=== PATIENT | female | born 1945 | race Caucasian/White ===

== ENCOUNTER 2016-11-04 09:01 | Day surgery (SDC) | payer OTHER ==
[2016-11-04] MEDS ORDERED: PROPOFOL 20 ML ONE ×2 (10:23)
[2016-11-04 10:32] VITALS: BMI 23.6
[2016-11-04 11:56] VITALS: TEMP 98
[2016-11-04 14:24] VITALS: BP 129/49; PULSE 51
--- NOTE | 2016-11-05 12:37 | PATH ---
Surgical Pathology Report Patient Name: VALERIO LICONA [facility]. Rec. #: [id number] /Age/Gender: 1945 (Age: 70) / F Account: [id number] Location: ASU-ENDOSCOPY Taken: 11/04/2016 Received: 11/04/2016 Reported: 11/05/2016 Physicians: Ciaran Mercado M.D. Specimen(s) Received BX SIGMOID POLYPS Clinical History Screening, constipation Moderate diverticulosis, redundant colon, grade 3 hemorrhoids with anal papilla Final Diagnosis SIGMOID, POLYPS BIOPSY: FRAGMENTS OF HYPERPLASTIC POLYPS. Electronically Signed Papo Benites M.D. Gross Description Received in formalin, labeled "biopsy sigmoid polyps" are 5 lopez, irregular portions of soft tissue ranging from 0.1-0.4 cm in greatest dimension. The specimens are submitted in toto in one cassette. /11/04/201611/04/2016
== END 2016-11-04 13:50 | disposition home or self-care (01) ==
LOC: JASU-ENDO 09:01
PROVIDERS: ATTEND Internal Medicine Gastroenterology
PROC: 0DBN8ZX Excision of Sigmoid Colon, Via Natural or Artificial Opening Endoscopic, Diagnostic (ICD-10-PCS; principal; 2016-11-04 10:00)
DX: Z12.11 Encounter for screening for malignant neoplasm of colon (principal); K57.30 Diverticulosis of large intestine without perforation or abscess without bleeding; K64.8 Other hemorrhoids; K63.89 Other specified diseases of intestine; K59.01 Slow transit constipation
CPT/HCPCS: 88305-TC

== ENCOUNTER 2017-07-20 13:53 | Inpatient (IN) | payer OTHER ==
--- NOTE | 2017-07-20 14:18 | PDOC ---
History of Present Illness - General Chief Complaint: Chest Pain Stated Complaint: CHEST PAIN, BLOOD PRESSURE PROBLEM, PCP SENT Time Seen by Provider: 07/20/17 14:12 - History of Present Illness Initial Comments: 07/20/17 14:15 71 yo M with h/o HLD, NIDDM, HTN who presents from outside PCP ( Dr. Petit ) with BP of 230/130, and CP. Patient reports one month of stable right sided chest pain/dull pressure at rest, alleviated with belching. No identifiable precipitators of chest pain. Pt. attributes chest pain to Metoprolol use beginning one month ago. Compliant with anitHTN medications/Metoprolol. Patient reports chronic HTN, Denies N/V, F/C, cough, SOB, wheezing, hemoptysis, lightheadedeness, ext swelling, urinary changes, hematuria, vision changes, weakness, slurred speech, confusion, numbness/tingling in ext. Denies h/o CAD/UT , TIA/CVA, stent placement, CABG. Last stress test 2 years ago with rn vascular Dr. malcolm. Past History - Past Medical History Allergies/Adverse Reactions: Allergies Allergy/AdvReac Type Severity Reaction Status Date / Time carvedilol [From Coreg] Allergy Verified 07/20/17 14:03 hydralazine Allergy Verified 07/20/17 14:03 nebivolol [From Bystolic] Allergy Verified 07/20/17 14:03 alprazolam [From Xanax] AdvReac Itching Verified 07/20/17 13:56 amlodipine besylate AdvReac Rash Verified 07/20/17 13:56 [From Norvasc] captopril AdvReac Itching Verified 07/20/17 13:56 gabapentin [From Neurontin] AdvReac Swelling Verified 07/20/17 13:56 hydrochlorothiazide AdvReac Swelling Verified 07/20/17 13:56 [From Aldactazide] hydrocortisone AdvReac Elevated Verified 07/20/17 13:56 [From Cortizone-10] Blood Pressure metoprolol succinate AdvReac Verified 07/20/17 13:56 [From Toprol XL] mupirocin AdvReac Rash Verified 07/20/17 13:56 nifedipine [From Procardia] AdvReac Rash Verified 07/20/17 13:56 nitroglycerin AdvReac Verified 07/20/17 13:56 olmesartan medoxomil AdvReac Low Blood Verified 07/20/17 13:56 [From Benicar] Pressure paroxetine HCl [From Paxil] AdvReac Elevated Verified 07/20/17 13:56 Blood Pressure pregabalin [From Lyrica] AdvReac Swelling Verified 07/20/17 13:56 spironolactone AdvReac Swelling Verified 07/20/17 13:56 [From Aldactazide] valsartan [From Diovan] AdvReac Swelling Verified 07/20/17 13:56 SE RA PES AdvReac Uncoded 07/20/17 13:56 Home Medications: Ambulatory Orders Captopril/Hydrochlorothiazide [Capozide 25/15 -] 50 mg PO DAILY 04/24/12 Diazepam [Valium] 5 mg PO PRN PRN 04/24/12 Potassium Chloride [K-Dur -] 20 meq PO DAILY 04/24/12 metFORMIN HCL [Glucophage -] 500 mg PO BID 04/24/12 Atenolol [Tenormin -] 100 mg PO DAILY 11/04/16 Atenolol/Chlorthalidone [Tenoretic 100 Tablet] 1 each PO 11/04/16 Glyburide 5 mg PO DAILY 11/04/16 Anemia: Yes Cardiac Disorders: Yes (LEAKY VALVES) COPD: No Diabetes: Yes GI Disorders: Yes (DIVERTICULOSIS,CONSTIPATION,IBS) HTN: Yes - Surgical History Abdominal Surgery: Yes (ovarian cyst) - Suicide/Smoking/Psychosocial Hx Smoking Status: No Smoking History: Never smoked Number of Cigarettes Smoked Daily: 0 Information on smoking cessation initiated: No Hx Alcohol Use: No Drug/Substance Use Hx: No Substance Use Type: None Review of Systems - Review of Systems Comments:: 07/20/17 14:14 GENERAL/CONSTITUTIONAL: No fever or chills. No weakness. HEAD, EYES, EARS, NOSE AND THROAT: No change in vision. No ear pain or discharge. No sore throat.- CARDIOVASCULAR:+ chest pain. No shortness of breath RESPIRATORY: No cough, wheezing, or hemoptysis. GASTROINTESTINAL: No nausea, vomiting, diarrhea or constipation. GENITOURINARY: No dysuria, frequency, or change in urination. MUSCULOSKELETAL: No joint or muscle swelling or pain. No neck or back pain. SKIN: No rash NEUROLOGIC: No headache, vertigo, loss of consciousness, or change in strength/ sensation. ENDOCRINE: No increased thirst. No abnormal weight change HEMATOLOGIC/LYMPHATIC: No anemia, easy bleeding, or history of blood clots. ALLERGIC/IMMUNOLOGIC: No hives or skin allergy. \ *Physical Exam - Vital Signs Last Vital Signs Temp Pulse Resp BP Pulse Ox 98.3 F 81 18 260/60 100 07/20/17 13:56 07/20/17 13:56 07/20/17 13:56 07/20/17 13:56 07/20/17 13:56 - Physical Exam Comments: 07/20/17 14:15 GENERAL: Awake, alert, and fully oriented, in no acute distress HEAD: No signs of trauma, normocephalic, atraumatic EYES: PERRLA, EOMI, sclera anicteric, conjunctiva clear ENT: Auricles normal inspection, hearing grossly normal, nares patent, oropharynx clear without exudates. Moist mucosa NECK: Normal ROM, supple, no lymphadenopathy, JVD, or masses LUNGS: No distress, speaks full sentences, clear to auscultation bilaterally HEART: Regular rate and rhythm, normal S1 and S2, no murmurs, rubs or gallops, peripheral pulses normal and equal bilaterally. EXTREMITIES : Normal inspection, Normal range of motion, no edema. No clubbing or cyanosis. NEUROLOGICAL: Cranial nerves II through XII grossly intact. Normal speech, normal gait, no focal sensorimotor deficits SKIN: Warm, Dry, normal turgor, no rashes or lesions noted ED Treatment Course - LABORATORY CBC & Chemistry Diagram: 07/20/17 14:16 07/20/17 14:16 Medical Decision Making - Medical Decision Making 07/20/17 15:50 71 yo M with h/o HLD, NIDDM, HTN who presents from outside PCP ( Dr. Petit ) with BP of 230/130, and one month of stable right sided chest pain/dull pressure at rest, alleviated with belching. No identifiable precipitators. BP typically high 180's-200s. Compliant with anitHTN medications/Metoprolol x 1 month. Mutliple adverse reactions to multiple antihypertensives including HCTZ, Norvasc, Captopril, Nitroglycerin, Coreg.Denies N/V, F/C, cough, SOB, wheezing, hemoptysis, lightheadedness, ext swelling, urinary changes, hematuria, vision changes, weakness, slurred speech, confusion, numbness/tingling in ext. Denies h /o CAD/UT, TIA/CVA, stent placement, CABG. Last stress test 2 years ago with rn vascular Dr. malcolm. BP 260/60. Absent findings on physical exam. Patiently currently asymptomatic with no evidence of end organ damage on physical exam. Will attempt to r/o ACS/UT and assess for laboratory abnormalities. ED Course: CBC, CMP, Cardiac Pr EKG, CXR UA Labetalol 20 mh IV ASA 325 mg 07/20/17 15:56 CBC, CMP: Unremarkable CXR: No acute pathology. Patient admitted to Dr. Petit inpatient telemetry BP 190/ 72 EKG: NSR with absent axis deviation. Normal interval duration. Absent JOSE MANUEL. STD in leads V5-V6. *DC/Admit/Observation/Transfer Diagnosis at time of Disposition: Hypertensive emergency, Chest pain - Discharge Dispostion Admit: Yes - Referrals - Patient Instructions - Post Discharge Activity
[2017-07-20 14:50] LABS: BASO % 0.6 % (0-2.0); HEMOGLOBIN 16.1 GM/dL (10.7-15.3); LYMPH % 21.6 % (8-40); MCH 33.8 pg (25.7-33.7); MCHC 34.3 g/dl (32.0-36.0); MEAN CELL VOLUME 98.7 fl (80-96); MEAN PLT VOLUME 7.5 fl (7.5-11.1); NEUT % 70.8 % (42.8-82.8); PLATELET COUNT 97 K/MM3 (134-434); RBC 4.76 M/mm3 (3.60-5.2); RDW 12.2 % (11.6-15.6); WHITE BLOOD COUNT 6.5 K/mm3 (4.0-10.0)
[2017-07-20 14:53] LABS: URINE APPEARANCE CLEAR; URINE BILIRUBIN NEGATIVE (NEGATIVE); URINE BLOOD NEGATIVE (NEGATIVE); URINE COLOR STRAW; URINE GLUCOSE (UA) 3+ (NEGATIVE); URINE KETONE TRACE (NEGATIVE); URINE LEUK ESTERASE NEGATIVE (NEGATIVE); URINE NITRITE NEGATIVE (NEGATIVE); URINE UROBILINOGEN NEGATIVE mg/dL (0.2-1.0)
[2017-07-20 14:56] LABS: URINE PROTEIN 2+ (NEGATIVE)
[2017-07-20 15:05] LABS: INR 1.02 (0.82-1.09); PROTHROMBIN TIME (PATIENT) 11.5 SEC (9.98-11.88)
[2017-07-20 15:06] LABS: EPI CELLS RARE /HPF (FEW)
--- NOTE | 2017-07-20 15:06 | EKG ---
Test Reason : Blood Pressure : / mmHG Vent. Rate : 073 BPM Atrial Rate : 073 BPM P-R Int : 142 ms QRS Dur : 092 ms QT Int : 418 ms P-R-T Axes : 071 032 078 degrees QTc Int : 460 ms SINUS RHYTHM WITH PREMATURE SUPRAVENTRICULAR COMPLEXES SEPTAL INFARCT , AGE UNDETERMINED ABNORMAL ECG WHEN COMPARED WITH ECG OF 01-JAN-2010 11:03, PREMATURE SUPRAVENTRICULAR COMPLEXES ARE NOW PRESENT SEPTAL INFARCT IS NOW PRESENT T WAVE AMPLITUDE HAS DECREASED IN LATERAL LEADS Confirmed by MD Kenji, Jay ([id number]) on 07/20/2017 3:06:30 PM Referred By: Confirmed By:Jay Phillip MD
[2017-07-20 15:19] LABS: ANION GAP 14 (8-16); BILIRUBIN,TOTAL 0.6 mg/dL (0.2-1.0); BLOOD UREA NITROGEN 16 mg/dL (7-18); CALCIUM 9.6 mg/dL (8.5-10.1); CHLORIDE 94 mmol/L (98-107); CO2 25 mmol/L (21-32); CREATININE 0.9 mg/dL (0.55-1.02); POTASSIUM 3.8 mmol/L (3.5-5.1); SGOT/AST 51 U/L (15-37); SGPT/ALT 64 U/L (12-78); SODIUM 133 mmol/L (136-145); TOT PROT 7.7 g/dl (6.4-8.2)
[2017-07-20 15:20] LABS: ALK PHOS 91 U/L (45-117)
[2017-07-20 15:27] LABS: GLUCOSE,RANDOM 342 mg/dL (74-106)
[2017-07-20] MEDS ORDERED: ASPIRIN 325 MG ENTERIC COATED TABLET (FP) PO ONE (15:45)
[2017-07-20] MEDS ORDERED: LABETALOL HCL 200 MG TABLET (FP) PO ONE ×2 (15:45→23:45)
[2017-07-20] MEDS ORDERED: LABETALOL HCL 5 MG/1 ML (100MG/20 ML VIAL) IVPUSH ONE (15:53)
[2017-07-20] MEDS ORDERED: LABETALOL HCL 5 MG/1 ML (200MG/40ML VIAL) IVPB ONE (15:56)
--- NOTE | 2017-07-20 16:02 | PDOC ---
Attending Attestation - Resident Resident Name: Jeff Arredondo - ED Attending Attestation I have performed the following: I have examined & evaluated the patient, The case was reviewed & discussed with the resident, I agree w/resident's findings & plan, Exceptions are as noted - HPI HPI: 07/20/17 15:59 71-year-old female with history of difficult to control hypertension sent from Dr. Amaro's office for admission in the setting of markedly elevated blood pressures at the office today and one month of intermittent localized left chest pain. Patient describes the pain as a side effect of her metoprolol, reporting regular left upper chest pain/cramping about 3-4 hours after taking her metoprolol, then spontaneously resolves. Denies any other symptoms of end organ injury. - Physicial Exam PE: 07/20/17 16:00 Elevated blood pressure 230/90 Well-appearing otherwise, sharp movements are intact Heart is regular, no murmurs Lungs are clear No edema - Medical Decision Making 07/20/17 16:01 Patient seen and evaluated with the resident. I agree with the overall evaluation, assessment, and management with the following summary of visit: 71-year-old female with history of hypertension sent for admission for markedly elevated blood pressures in the setting of otherwise atypical chest pain. Blood pressure control Labs, EKG Chest x-ray Admission as scheduled by Dr. Amaro Heart Score/ECG Review #1 ECG reviewed & interpreted by me at: 14:07 General ECG Interpretation: Sinus Rhythm (APC noted), Normal Rate (73), Normal Intervals (qtc 460), No acute ischemic changes
[2017-07-20 16:24] VITALS: BMI 25.0
[2017-07-20] MEDS ORDERED: SODIUM CHLORIDE 500 ML IV STA (18:25)
[2017-07-20] MEDS ORDERED: diazePAM 5 MG TABLET PO PRN (23:19)
--- NOTE | 2017-07-20 23:47 | PN ---
Teaching Attending Note Name of Resident: Kameron Salvador ATTENDING PHYSICIAN STATEMENT I saw and evaluated the patient. I reviewed the resident's note and discussed the case with the resident. I agree with the resident's findings and plan as documented. SUBJECTIVE: 71 yo F with Pmhx of HTN (non-compliant with med dose, as per pt), NIDDM, HLD, chronic thrombocytopenia, who presented to 's office for HTN urgency with BP 230/130. Also,with right sided chest pain that has improved when she belches. States she gets her chest pain when she takes her Metoprolol and lowered her dose to 50mg. States she does take her other meds. Notes no current chest pain, pressure, shortness of breath, lightheadedness, dizziness or headaches. No fevers or chills. OBJECTIVE: Physical: VS: Vital Signs Period Temp Pulse Resp BP Sys/[place] Pulse Ox Last 24 Hr 98.0 F-98.3 F 70-81 16-18 163-260/60-96 100-100 GEN: NAD, Resting in bed, AA0X3 HEENT: NCAT, PERRL, Throat without erythema or exudates CARD: RRR S1, S2 RESP: CTAB ABD: BSx4, NTD to palpation EXT: - C/C/E, petechia in bilateral LE Allergies Allergy/AdvReac Type Severity Reaction Status Date / Time carvedilol [From Coreg] Allergy Verified 07/20/17 14:03 hydralazine Allergy Verified 07/20/17 14:03 nebivolol [From Bystolic] Allergy Verified 07/20/17 14:03 alprazolam [From Xanax] AdvReac Itching Verified 07/20/17 13:56 amlodipine besylate AdvReac Rash Verified 07/20/17 13:56 [From Norvasc] captopril AdvReac Itching Verified 07/20/17 13:56 gabapentin [From Neurontin] AdvReac Swelling Verified 07/20/17 13:56 hydrochlorothiazide AdvReac Swelling Verified 07/20/17 13:56 [From Aldactazide] hydrocortisone AdvReac Elevated Verified 07/20/17 13:56 [From Cortizone-10] Blood Pressure metoprolol succinate AdvReac Verified 07/20/17 13:56 [From Toprol XL] mupirocin AdvReac Rash Verified 07/20/17 13:56 nifedipine [From Procardia] AdvReac Rash Verified 07/20/17 13:56 nitroglycerin AdvReac Verified 07/20/17 13:56 olmesartan medoxomil AdvReac Low Blood Verified 07/20/17 13:56 [From Benicar] Pressure paroxetine HCl [From Paxil] AdvReac Elevated Verified 07/20/17 13:56 Blood Pressure pregabalin [From Lyrica] AdvReac Swelling Verified 07/20/17 13:56 spironolactone AdvReac Swelling Verified 07/20/17 13:56 [From Aldactazide] valsartan [From Diovan] AdvReac Swelling Verified 07/20/17 13:56 SE RA PES AdvReac Uncoded 07/20/17 13:56 CBCD WBC 6.5 K/mm3 (4.0-10.0) D 07/20/17 14:16 RBC 4.76 M/mm3 (3.60-5.2) 07/20/17 14:16 Hgb 16.1 GM/dL (10.7-15.3) H 07/20/17 14:16 Hct 47.0 % (32.4-45.2) H 07/20/17 14:16 MCV 98.7 fl (80-96) H 07/20/17 14:16 MCHC 34.3 g/dl (32.0-36.0) 07/20/17 14:16 RDW 12.2 % (11.6-15.6) 07/20/17 14:16 Plt Count 97 K/MM3 (134-434) L 07/20/17 14:16 MPV 7.5 fl (7.5-11.1) 07/20/17 14:16 CMP Sodium 133 mmol/L (136-145) L 07/20/17 14:16 Potassium 3.8 mmol/L (3.5-5.1) 07/20/17 14:16 Chloride 94 mmol/L (98-107) L 07/20/17 14:16 Carbon Dioxide 25 mmol/L (21-32) 07/20/17 14:16 Anion Gap 14 (8-16) 07/20/17 14:16 BUN 16 mg/dL (7-18) 07/20/17 14:16 Creatinine 0.9 mg/dL (0.55-1.02) 07/20/17 14:16 Creat Clearance w eGFR > 60 (>60) 07/20/17 14:16 Random Glucose 342 mg/dL (74-106) H* 07/20/17 14:16 Calcium 9.6 mg/dL (8.5-10.1) 07/20/17 14:16 Total Bilirubin 0.6 mg/dL (0.2-1.0) 07/20/17 14:16 AST 51 U/L (15-37) H 07/20/17 14:16 ALT 64 U/L (12-78) 07/20/17 14:16 Alkaline Phosphatase 91 U/L (45-117) 07/20/17 14:16 Total Protein 7.7 g/dl (6.4-8.2) 07/20/17 14:16 Albumin 4.0 g/dl (3.4-5.0) 07/20/17 14:16 CARDIAC ENZYMES Creatine Kinase 91 IU/L (26-192) 07/20/17 14:16 Troponin I 0.02 ng/ml (0.00-0.05) 07/20/17 14:16 EKG- NSR 73, Q waves septal leads, QtC 460 Ambulatory Orders Diazepam [Valium] 5 mg PO PRN PRN 04/24/12 Potassium Chloride [K-Dur -] 20 meq PO DAILY 04/24/12 metFORMIN HCL [Glucophage -] 500 mg PO BID 04/24/12 Aspirin 81 mg PO DAILY 07/20/17 Captopril 50 mg PO 1200 07/20/17 Captopril 100 mg PO BID 07/20/17 Chlorthalidone 25 mg PO DAILY 07/20/17 Glyburide 5 mg PO DAILY 07/20/17 Metoprolol Succinate [Toprol Xl] 100 mg PO HS 07/20/17 ASSESSMENT AND PLAN: 71 yo F with Pmhx of HTN (non-compliant with med dose, as per pt), NIDDM, HLD, chronic thrombocytopenia, who presents with htn urgency 1.) HTN Urgency - Pt. has extensive allergies to Multiple ant-htn meds listed above - She is Ok with taking PO Labetolol, but unwilling to take others - Will not take Lisinopril, but will bring Captopril in from Home - Will slowly lower BP - Trend Trops/Ekg - Echo if not already done outpt. 2.) Uncontrolled DM - FS - RAISS - A1C if not already checked outpt 3.) Anxiety - C/W Valium 4.) Chronic Thrombocytopenia - Trend plts 5.) Dvt ppx - SCDs Place in Med-Tele
--- NOTE | 2017-07-21 00:11 | HP ---
CHIEF COMPLAINT: High blood pressure PCP: Dr. Petit HISTORY OF PRESENT ILLNESS: The patient is a 71 yo f w/ PMH HLD, NIDDM, HTN who was sent to the ED by Dr. Petit for elevated BP. Patient was at her PCP for a wellness check when her BP was found to be elevated to 230/130. Patient states that she was asymptomatic at the time, but has since developed left sided chest discomfort. She states that this discomfort is similar to what she feels whenever her BP is high. Patient denies SOB, nausea, vomiting, fevers or chills. Patient denies headache, changes in vision, dizziness or weakness. Patient follows with Dr. Lopez for cardiology. ER course was notable for: (1) (2) (3) Recent Travel: none PAST MEDICAL HISTORY: HTN DM HLD PAST SURGICAL HISTORY: Social History: Smoking: denies Alcohol: denies Drugs: denies Family History: non-contributory Allergies carvedilol [From Coreg] Allergy (Verified 07/20/17 14:03) hydralazine Allergy (Verified 07/20/17 14:03) nebivolol [From Bystolic] Allergy (Verified 07/20/17 14:03) alprazolam [From Xanax] Adverse Reaction (Verified 07/20/17 13:56) Itching amlodipine besylate [From Norvasc] Adverse Reaction (Verified 07/20/17 13:56) Rash captopril Adverse Reaction (Verified 07/20/17 13:56) Itching gabapentin [From Neurontin] Adverse Reaction (Verified 07/20/17 13:56) Swelling hydrochlorothiazide [From Aldactazide] Adverse Reaction (Verified 07/20/17 13:56 ) Swelling hydrocortisone [From Cortizone-10] Adverse Reaction (Verified 07/20/17 13:56) Elevated Blood Pressure metoprolol succinate [From Toprol XL] Adverse Reaction (Verified 07/20/17 13:56) mupirocin Adverse Reaction (Verified 07/20/17 13:56) Rash nifedipine [From Procardia] Adverse Reaction (Verified 07/20/17 13:56) Rash nitroglycerin Adverse Reaction (Verified 07/20/17 13:56) olmesartan medoxomil [From Benicar] Adverse Reaction (Verified 07/20/17 13:56) Low Blood Pressure paroxetine HCl [From Paxil] Adverse Reaction (Verified 07/20/17 13:56) Elevated Blood Pressure pregabalin [From Lyrica] Adverse Reaction (Verified 07/20/17 13:56) Swelling spironolactone [From Aldactazide] Adverse Reaction (Verified 07/20/17 13:56) Swelling valsartan [From Diovan] Adverse Reaction (Verified 07/20/17 13:56) Swelling MUSCLE SPASM SE RA PES Adverse Reaction (Uncoded 07/20/17 13:56) HOME MEDICATIONS: Home Medications Medication Instructions Recorded Diazepam [Valium] 5 mg PO PRN PRN 04/24/12 Potassium Chloride [K-Dur -] 20 meq PO DAILY 04/24/12 metFORMIN HCL [Glucophage -] 500 mg PO BID 04/24/12 Aspirin 81 mg PO DAILY 07/20/17 Captopril 50 mg PO 1200 07/20/17 Captopril 100 mg PO BID 07/20/17 Chlorthalidone 25 mg PO DAILY 07/20/17 Glyburide 5 mg PO DAILY 07/20/17 Metoprolol Succinate [Toprol Xl] 100 mg PO HS 07/20/17 REVIEW OF SYSTEMS CONSTITUTIONAL: Absent: fever, chills, diaphoresis, generalized weakness, malaise, loss of appetite, weight change HEENT: Absent: rhinorrhea, nasal congestion, throat pain, throat swelling, difficulty swallowing, mouth swelling, ear pain, eye pain, visual changes CARDIOVASCULAR: Absent: syncope, palpitations, irregular heart rate, lightheadedness, peripheral edema RESPIRATORY: Absent: cough, shortness of breath, dyspnea with exertion, orthopnea, wheezing, stridor, hemoptysis GASTROINTESTINAL: Absent: abdominal pain, abdominal distension, nausea, vomiting, diarrhea, constipation, melena, hematochezia GENITOURINARY: Absent: dysuria, frequency, urgency, hesitancy, hematuria, flank pain, genital pain MUSCULOSKELETAL: Absent: myalgia, arthralgia, joint swelling, back pain, neck pain SKIN: Absent: rash, itching, pallor HEMATOLOGIC/IMMUNOLOGIC: Absent: easy bleeding, easy bruising, lymphadenopathy, frequent infections ENDOCRINE: Absent: unexplained weight gain, unexplained weight loss, heat intolerance, cold intolerance NEUROLOGIC: Absent: headache, focal weakness or paresthesias, dizziness, unsteady gait, seizure, mental status changes, bladder or bowel incontinence PSYCHIATRIC: Absent: anxiety, depression, suicidal or homicidal ideation, hallucinations. PHYSICAL EXAMINATION Vital Signs - 24 hr 07/20/17 07/20/17 07/20/17 13:56 14:00 16:00 Temperature 98.3 F 98.0 F Pulse Rate 81 76 72 Pulse Rate [ 70 Apical] Respiratory 18 17 Rate Blood Pressure 260/60 240/95 Blood Pressure 190/72 [Right Arm] O2 Sat by Pulse 100 100 100 Oximetry (%) 07/20/17 07/20/17 16:05 18:30 Temperature Pulse Rate Pulse Rate [ 77 Apical] Respiratory 16 Rate Blood Pressure 214/96 Blood Pressure 163/90 [Right Arm] O2 Sat by Pulse Oximetry (%) GENERAL: Awake, alert, and fully oriented, in no acute distress. Patient appears tremulous and nervous when discussing PMH HEAD: Normal with no signs of trauma. EYES: Pupils equal, round and reactive to light, extraocular movements intact, sclera anicteric, conjunctiva clear. No lid lag. LUNGS: Breath sounds equal, clear to auscultation bilaterally. No wheezes, and no crackles. No accessory muscle use. HEART: Regular rate and rhythm, normal S1 and S2 without murmur, rub or gallop. ABDOMEN: Soft, nontender, not distended, normoactive bowel sounds, no guarding, no rebound, no masses. No hepatomegaly or splenomegaly. LOWER EXTREMITIES: 2+ pulses, warm, well-perfused. No calf tenderness. No peripheral edema. NEUROLOGICAL: Cranial nerves II-X intact. Normal speech. PSYCHIATRIC: Cooperative. Good eye contact. Appropriate mood and affect. SKIN: Warm, dry, normal turgor. Petichiae noted on right hand; patient attributes this to low platelets and states it is normal Laboratory Results - last 24 hr 07/20/17 07/20/17 07/20/17 14:16 14:16 14:16 WBC 6.5 D RBC 4.76 Hgb 16.1 H Hct 47.0 H MCV 98.7 H MCH 33.8 H MCHC 34.3 RDW 12.2 Plt Count 97 L MPV 7.5 Neutrophils % 70.8 D Lymphocytes % 21.6 D Monocytes % 5.0 Eosinophils % 2.0 Basophils % 0.6 PT with INR INR Sodium Potassium Chloride Carbon Dioxide Anion Gap BUN Creatinine Creat Clearance w eGFR Random Glucose Calcium Total Bilirubin AST ALT Alkaline Phosphatase Creatine Kinase 91 Troponin I 0.02 Total Protein Albumin Urine Color Straw Urine Appearance Clear Urine pH 7.0 Ur Specific [place] 1.008 Urine Protein 2+ H Urine Glucose (UA) 3+ H Urine Ketones Trace H Urine Blood Negative Urine Nitrite Negative Urine Bilirubin Negative Urine Urobilinogen Negative Ur Leukocyte Esterase Negative Urine WBC (Auto) None Urine RBC (Auto) <1 Ur Epithelial Cells Rare 07/20/17 07/20/17 14:16 14:16 WBC RBC Hgb Hct MCV MCH MCHC RDW Plt Count MPV Neutrophils % Lymphocytes % Monocytes % Eosinophils % Basophils % PT with INR 11.50 INR 1.02 Sodium 133 L Potassium 3.8 Chloride 94 L Carbon Dioxide 25 Anion Gap 14 BUN 16 Creatinine 0.9 Creat Clearance w eGFR > 60 Random Glucose 342 H* Calcium 9.6 Total Bilirubin 0.6 AST 51 H ALT 64 Alkaline Phosphatase 91 Creatine Kinase Troponin I Total Protein 7.7 Albumin 4.0 Urine Color Urine Appearance Urine pH Ur Specific [place] Urine Protein Urine Glucose (UA) Urine Ketones Urine Blood Urine Nitrite Urine Bilirubin Urine Urobilinogen Ur Leukocyte Esterase Urine WBC (Auto) Urine RBC (Auto) Ur Epithelial Cells ASSESSMENT/PLAN: The patient is a 71 yo f w/ PMH HTN and DM who was sent to the ED by PCP for evaluation of hypertension being admitted for hypertensive urgency. #Hypertensive urgency -BP on the floors 227/95 -s/p labetolol 200mg in ED -will give another 200mg labetolol now -Patient with multiple allergies to antihypertensives and cardiac medications -Patient refusing any other new medications -patient's home captopril is non-formulary at this hospital -patient refusing lisinopril substitute -explained the risks of holding off on further BP control until the AM -patient verbalizes understanding and prefers to wait for her to bring her home medications tomorrow -troponin negative x1; will trend -echo in AM -Dr. Lopez for cardio consulted #DM -BGM TIDAC -ISS -hold home hypoglycemics #FEN -no fluids indicated -monitor lytes -diabetic sodium controlled diet #Prophylaxis -Hep SQ Ku TID #Diso -Admit to tele Visit type - Emergency Visit Emergency Visit: Yes ED Registration Date: 07/20/17 Care time: The patient presented to the Emergency Department on the above date and was hospitalized for further evaluation of their emergent condition. - New Patient This patient is new to me today: Yes Date on this admission: 07/21/17 - Critical Care Critical Care patient: No Hospitalist Screening - Colonoscopy Questionnaire Colonoscopy Questionnaire: Colonoscopy Questionnaire - Patient: 50 - 75 years old and never had a screening colonoscopy: Unknown History of colon or rectal polyps, or CA: Unknown History of IBD, Crohn's disease or UC: Unknown History of abdominal radiation therapy as a child: Unknown - Relative: 1 with colon or rectal CA, or polyps at age 60 or younger: Unknown Colon or rectal CA diagnosed at age 45 or younger: Unknown Multiple relatives with colon or rectal CA: Unknown - Outcome: Screening Result: Negative Screen
[2017-07-21] MEDS ORDERED: INSULIN SLIDING SCALE (NOVOLOG) 1 VIAL SQ ONE (00:23)
[2017-07-21 07:12] LABS: BASO % 0.6 % (0-2.0); EOS % 2.5 % (0-4.5); HEMATOCRIT 43.1 % (32.4-45.2); HEMOGLOBIN 14.7 GM/dL (10.7-15.3); LYMPH % 37.8 % (8-40); MCH 33.9 pg (25.7-33.7); MCHC 34.1 g/dl (32.0-36.0); MEAN CELL VOLUME 99.4 fl (80-96); MONO % 7.9 % (3.8-10.2); NEUT % 51.2 % (42.8-82.8); PLATELET COUNT 84 K/MM3 (134-434); RBC 4.34 M/mm3 (3.60-5.2); RDW 12.8 % (11.6-15.6); WHITE BLOOD COUNT 4.9 K/mm3 (4.0-10.0)
[2017-07-21 07:44] LABS: ALBUMIN 3.8 g/dl (3.4-5.0); ANION GAP 9 (8-16); BLOOD UREA NITROGEN 14 mg/dL (7-18); CALCIUM 8.5 mg/dL (8.5-10.1); CHLORIDE 99 mmol/L (98-107); CO2 30 mmol/L (21-32); CREATININE 0.8 mg/dL (0.55-1.02); GLUCOSE,RANDOM 230 mg/dL (74-106); MAGNESIUM 1.4 mg/dL (1.8-2.4); PHOSPHOROUS 3.4 mg/dL (2.5-4.9); POTASSIUM 3.5 mmol/L (3.5-5.1); SGOT/AST 40 U/L (15-37); SGPT/ALT 54 U/L (12-78); SODIUM 138 mmol/L (136-145); TOT PROT 6.9 g/dl (6.4-8.2)
[2017-07-21 07:47] LABS: ALK PHOS 66 U/L (45-117)
[2017-07-21] MEDS ORDERED: diazePAM 2 MG TABLET PO ONE (09:09)
[2017-07-21] MEDS ORDERED: MAGNESIUM 2GM/50ML STERILE WATER IVPB IVPB ONE (09:13)
--- NOTE | 2017-07-21 09:17 | HOSP ---
Subjective - Review of Symptoms Subjective: Patient seen and examined. She c/o heart palpitations and left sided intermittent cp. States labetolol and metoprolol do this to her. Physical Examination Vital Signs: Vital Signs Temperature 97.7 F 07/21/17 06:00 Pulse Rate 76 07/21/17 06:00 Respiratory Rate 20 07/21/17 06:00 Blood Pressure 197/100 07/21/17 06:00 O2 Sat by Pulse Oximetry (%) 99 07/20/17 22:00 Constitutional: Yes: Anxious Cardiovascular: Yes: Tachycardia, S1, S2 Respiratory: Yes: Regular, CTA Bilaterally Gastrointestinal: Yes: Normal Bowel Sounds, Soft Edema: No Labs: CBC, BMP 07/21/17 06:35 07/21/17 06:35 Hospitalist Encounter Assessment: Assessment: 71 year old female admitted with pmhx of HLD, NIDDM, chronic thrombocytopenia, HTN sent to the ED by PCP Dr. Petit for HTN urgency. Plan: 1. HTN Urgency - PT reports being unable to get atenolol filled d/t shortage - Resume home regimen: Atenolol 100mg daily, Chlorthalidone 25mg daily, Captopril 100mg BID; 50mg @12, K dur 20meq daily - Captopril non formulary - Start ramipril 20mg daily - Trops x2 negative 2. DM II - Hold po antidiabetics - ISS, BGM ACHS 3. Anxiety - Valium 5mg PRN, will give decreased dose 2mg x1 now 4. Chronic Thrombocytopenia - Trend plts 5. Hypomagnesemia - Mag 2gm x1 6. Dvt ppx - SCDs, hold chemical AC
[2017-07-21] MEDS: CHLORTHALIDONE 25 MG TABLET PO SCH (09:47)
[2017-07-21] MEDS: POTASSIUM CHLORIDE TABS 20 MEQ TABLET.ER (FP) PO SCH (09:47)
[2017-07-21] MEDS: ATENOLOL 50 MG TABLET (FP) PO SCH (09:47)
[2017-07-21] MEDS ORDERED: RAMIPRIL 5 MG CAPSULE (FP) PO SCH (10:00)
[2017-07-21] MEDS ORDERED: LISINOPRIL 20 MG TABLET (FP) PO SCH (10:00)
--- NOTE | 2017-07-21 10:22 | CON.CARD ---
Consult Consult Specialty:: Cardiology Referred by:: Hospitalist Medicine Reason for Consultation:: Hypertensive urgency - History of Present Illness Chief Complaint: Chest pain History of Present Illness: 71 yo F with Pmhx of HTN (non-compliant with med dose, as per pt), NIDDM, HLD, chronic thrombocytopenia, who presented to 's office for HTN urgency with BP 230/130. Also, reports atypical right sided chest pain that has improved when she belches. States she gets her chest pain when she takes her Metoprolol and lowered her dose to 50mg. States she does take her other meds. Notes no current chest pain, pressure, shortness of breath, lightheadedness, dizziness or headaches, palpitations, true syncope, orthopnea, PND or LE edema. Denies NSAIDs use or salt intake, reports not being able to fill Atenolol scripts, has idiosynchratic reactions to multiple agents. - History Source History Provided By: Patient Limitations to Obtaining History: No Limitations - Past Medical History Cardio/Vascular: Yes: HTN Endocrine: Yes: Diabetes Mellitus - Alcohol/Substance Use Hx Alcohol Use: No - Smoking History Smoking history: Never smoked Aproximately how many cigarettes per day: 0 Home Medications - Allergies Allergies/Adverse Reactions: Allergies Allergy/AdvReac Type Severity Reaction Status Date / Time carvedilol [From Coreg] Allergy Verified 07/20/17 14:03 hydralazine Allergy Verified 07/20/17 14:03 nebivolol [From Bystolic] Allergy Verified 07/20/17 14:03 alprazolam [From Xanax] AdvReac Itching Verified 07/20/17 13:56 amlodipine besylate AdvReac Rash Verified 07/20/17 13:56 [From Norvasc] captopril AdvReac Itching Verified 07/20/17 13:56 gabapentin [From Neurontin] AdvReac Swelling Verified 07/20/17 13:56 hydrochlorothiazide AdvReac Swelling Verified 07/20/17 13:56 [From Aldactazide] hydrocortisone AdvReac Elevated Verified 07/20/17 13:56 [From Cortizone-10] Blood Pressure metoprolol succinate AdvReac Verified 07/20/17 13:56 [From Toprol XL] mupirocin AdvReac Rash Verified 07/20/17 13:56 nifedipine [From Procardia] AdvReac Rash Verified 07/20/17 13:56 nitroglycerin AdvReac Verified 07/20/17 13:56 olmesartan medoxomil AdvReac Low Blood Verified 07/20/17 13:56 [From Benicar] Pressure paroxetine HCl [From Paxil] AdvReac Elevated Verified 07/20/17 13:56 Blood Pressure pregabalin [From Lyrica] AdvReac Swelling Verified 07/20/17 13:56 spironolactone AdvReac Swelling Verified 07/20/17 13:56 [From Aldactazide] valsartan [From Diovan] AdvReac Swelling Verified 07/20/17 13:56 SE RA PES AdvReac Uncoded 07/20/17 13:56 - Home Medications Home Medications: Ambulatory Orders Diazepam [Valium] 5 mg PO PRN PRN 04/24/12 Potassium Chloride [K-Dur -] 20 meq PO DAILY 04/24/12 metFORMIN HCL [Glucophage -] 500 mg PO BID 04/24/12 Aspirin 81 mg PO DAILY 07/20/17 Captopril 50 mg PO 1200 07/20/17 Captopril 100 mg PO BID 07/20/17 Chlorthalidone 25 mg PO DAILY 07/20/17 Glyburide 5 mg PO DAILY 07/20/17 Metoprolol Succinate [Toprol Xl] 100 mg PO HS 07/20/17 Review of Systems - Review of Systems Cardiovascular: reports: Chest Pain Vital Signs: Vital Signs Temperature 97.7 F 07/21/17 06:00 Pulse Rate 76 07/21/17 06:00 Respiratory Rate 20 07/21/17 06:00 Blood Pressure 197/100 07/21/17 06:00 O2 Sat by Pulse Oximetry (%) 99 07/20/17 22:00 Constitutional: Yes: No Distress, Calm Neck: Yes: Supple Respiratory: Yes: Regular, CTA Bilaterally Gastrointestinal: Yes: Normal Bowel Sounds, Soft Cardiovascular: Yes: Regular Rate and Rhythm JVD: No Carotid Bruit: No Heart Sounds: Yes: S1, S2 Murmur: Yes: Systolic Murmur, Grade 1 Edema: No - Other Data Labs, Other Data: CBC, BMP 07/21/17 06:35 07/21/17 06:35 INR, PTT INR 1.02 (0.82-1.09) 07/20/17 14:16 Troponin, BNP 07/20/17 07/21/17 07/21/17 14:16 00:01 06:35 Troponin I 0.02 0.03 0.03 07/21/17 06:35 Troponin I Cancelled Troponin, BNP 07/20/17 07/21/17 07/21/17 14:16 00:01 06:35 Troponin I 0.02 0.03 0.03 07/21/17 06:35 Trop[address] @ [address] changes Imaging - Results Chest X-ray: Report Reviewed (Left min ATX) Problem List - Problems (1) Coronary artery disease Code(s): I25.10 - ATHSCL HEART DISEASE OF [place] CORONARY ARTERY W/O ANG PCTRS Qualifiers: Coronary Disease-Associated Artery/Lesion type: [place] artery [place] vs. transplanted heart: [place] heart Associated angina: without angina Qualified Code(s): I25.10 - Atherosclerotic heart disease of [place] coronary artery without angina pectoris (2) Abnormal cardiovascular function study Code(s): R94.30 - ABNORMAL RESULT OF CARDIOVASCULAR FUNCTION STUDY, UNSP (3) Type 2 diabetes mellitus Code(s): E11.9 - TYPE 2 DIABETES MELLITUS WITHOUT COMPLICATIONS Qualifiers: Diabetes mellitus complication status: without complication Diabetes mellitus senior living insulin use: without senior living use Qualified Code(s): E11.9 - Type 2 diabetes mellitus without complications (4) Thrombocytopenia Code(s): D69.6 - THROMBOCYTOPENIA, UNSPECIFIED (5) Hypertensive emergency Code(s): I16.1 - HYPERTENSIVE EMERGENCY (6) Diastolic dysfunction without heart failure Code(s): I51.9 - HEART DISEASE, UNSPECIFIED Assessment/Plan 12/05/2015 Echo: Normal LV size and fxn, mild-mod MR, mild TR 08/14/2015 P-Myoview: Small anteroapical moderate ischemia, LVEF 77% 05/01/2015 L>R moderate atherosclerotic disease without sig. stenosis 1. HTN Urgency 2. Type 2 DM 3. CAD with abnormal MPI 4. Diastolic dysfunction 5. PAD s/p [employer] EMPLOYEE 6. Thrombocytopenia 1. Given somewhat complicated medication regimen with multiple drug reactions, recommend resuming her home medication therapy which consists of Atenolol 100mg daily, Chlorthalidone 25mg daily, Captopril 100mg qAM and PM, 50 mg q12 PM and reassess BP control 2. Ruled out for [place] 3. Thank you for consultative opportunity 4. Eventual outpatient f/u in office with Dr. Holloway post discharge
--- NOTE | 2017-07-21 10:32 | EKG ---
Test Reason : Blood Pressure : / mmHG Vent. Rate : 115 BPM Atrial Rate : 115 BPM P-R Int : 162 ms QRS Dur : 066 ms QT Int : 344 ms P-R-T Axes : 080 030 209 degrees QTc Int : 475 ms SINUS TACHYCARDIA WITH PREMATURE ATRIAL COMPLEXES SEPTAL INFARCT (CITED ON OR BEFORE 20-JUL-2017) MARKED ST ABNORMALITY, POSSIBLE INFEROLATERAL SUBENDOCARDIAL INJURY ABNORMAL ECG WHEN COMPARED WITH ECG OF 20-JUL-2017 14:07, VENT. RATE HAS INCREASED BY 42 BPM QRS DURATION HAS DECREASED ST NOW DEPRESSED IN INFERIOR LEADS ST NOW DEPRESSED IN ANTEROLATERAL LEADS T WAVE INVERSION NOW EVIDENT IN LATERAL LEADS Confirmed by GRAHAM CANADA, ANTONIO ([id number]) on 07/21/2017 10:32:24 AM Referred By: DAVID PATRICK Confirmed By:ANTONIO STEVENSON MD
[2017-07-21] MEDS ORDERED: CAPTOPRIL 50 MG PO SCH (12:00)
[2017-07-21] MEDS: INSULIN SLIDING SCALE (NOVOLOG) 1 VIAL SQ SCH ×3 (13:55→21:54)
--- NOTE | 2017-07-21 16:52 | CON.PULM ---
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 No: AFIB Pulmonary: Yes: COPD. No: O2 Dependent Gastrointestinal: Yes: Pancreatitis. No: Ascites Hepatobiliary: No: Cirrhosis Renal/: No: Renal Failure Reproductive: Yes: Postmenopausal ...: No Heme/Onc: No: Anemia Psych: No: Addictions Musculoskeletal: No: Chronic low back pain Endocrine: Yes: Diabetes Mellitus - Alcohol/Substance Use Hx Alcohol Use: No - Smoking History Smoking history: Never smoked Aproximately how many cigarettes per day: 0 - Social History Usual Living Arrangement: With Spouse Place of : [facility] History of Recent Travel: No Home Medications - Allergies Allergies/Adverse Reactions: Allergies Allergy/AdvReac Type Severity Reaction Status Date / Time carvedilol [From Coreg] Allergy Verified 07/20/17 14:03 hydralazine Allergy Verified 07/20/17 14:03 nebivolol [From Bystolic] Allergy Verified 07/20/17 14:03 alprazolam [From Xanax] AdvReac Itching Verified 07/20/17 13:56 amlodipine besylate AdvReac Rash Verified 07/20/17 13:56 [From Norvasc] captopril AdvReac Itching Verified 07/20/17 13:56 gabapentin [From Neurontin] AdvReac Swelling Verified 07/20/17 13:56 hydrochlorothiazide AdvReac Swelling Verified 07/20/17 13:56 [From Aldactazide] hydrocortisone AdvReac Elevated Verified 07/20/17 13:56 [From Cortizone-10] Blood Pressure metoprolol succinate AdvReac Verified 07/20/17 13:56 [From Toprol XL] mupirocin AdvReac Rash Verified 07/20/17 13:56 nifedipine [From Procardia] AdvReac Rash Verified 07/20/17 13:56 nitroglycerin AdvReac Verified 07/20/17 13:56 olmesartan medoxomil AdvReac Low Blood Verified 07/20/17 13:56 [From Benicar] Pressure paroxetine HCl [From Paxil] AdvReac Elevated Verified 07/20/17 13:56 Blood Pressure pregabalin [From Lyrica] AdvReac Swelling Verified 07/20/17 13:56 spironolactone AdvReac Swelling Verified 07/20/17 13:56 [From Aldactazide] valsartan [From Diovan] AdvReac Swelling Verified 07/20/17 13:56 SE RA PES AdvReac Uncoded 07/20/17 13:56 - Home Medications Home Medications: Ambulatory Orders Diazepam [Valium] 5 mg PO PRN PRN 04/24/12 Potassium Chloride [K-Dur -] 20 meq PO DAILY 04/24/12 metFORMIN HCL [Glucophage -] 500 mg PO BID 04/24/12 Aspirin 81 mg PO DAILY 07/20/17 Captopril 50 mg PO 1200 07/20/17 Captopril 100 mg PO BID 07/20/17 Chlorthalidone 25 mg PO DAILY 07/20/17 Glyburide 5 mg PO DAILY 07/20/17 Metoprolol Succinate [Toprol Xl] 100 mg PO HS 07/20/17 Family Disease History - Family Disease History Family History: Unremarkable Review of Systems - Review of Systems Constitutional: reports: Weakness. denies: Fever Eyes: denies: Blurred Vision HENT: denies: Difficult Swallowing Neck: denies: Decreased ROM Cardiovascular: reports: Chest Pain, Shortness of Breath Respiratory: reports: SOB, SOB on Exertion. denies: Hemoptysis, Orthopnea, Wheezing Gastrointestinal: denies: Abdominal Pain Genitourinary: reports: No Symptoms Breasts: reports: No Symptoms Reported Musculoskeletal: reports: No Symptoms Integumentary: reports: No Symptoms Neurological: reports: Headache Endocrine: reports: [place] Hematology/Lymphatic: reports: No Symptoms Psychiatric: reports: No Symptoms Physical Exam Vital Sings: Vital Signs Temperature 97.2 F L 07/21/17 14:00 Pulse Rate 73 07/21/17 14:00 Respiratory Rate 22 07/21/17 10:00 Blood Pressure 164/79 07/21/17 14:00 O2 Sat by Pulse Oximetry (%) 98 07/21/17 09:00 Constitutional: Yes: Anxious Eyes: Yes: EOM Intact HENT: Yes: Normocephalic Neck: Yes: Trachea Midline Cardiovascular: Yes: Regular Rate and Rhythm, S1, S2 Respiratory: Yes: CTA Bilaterally Gastrointestinal: Yes: Soft Edema: LLE: Trace, RLE: Trace Labs: CBC, BMP 07/21/17 06:35 07/21/17 06:35 REST REVIEWED Imaging - Results Chest X-ray: Report Reviewed, Image Reviewed EKG: Report Reviewed Other: Report Reviewed (ECHO) Problem List - Problems (1) Abnormal cardiovascular function study Code(s): R94.30 - ABNORMAL RESULT OF CARDIOVASCULAR FUNCTION STUDY, UNSP (2) Chest pain Code(s): R07.9 - CHEST PAIN, UNSPECIFIED (3) Coronary artery disease Code(s): I25.10 - ATHSCL HEART DISEASE OF [place] CORONARY ARTERY W/O ANG PCTRS Qualifiers: Coronary Disease-Associated Artery/Lesion type: [place] artery [place] vs. transplanted heart: [place] heart Associated angina: without angina Qualified Code(s): I25.10 - Atherosclerotic heart disease of [place] coronary artery without angina pectoris (4) Hypertensive emergency Code(s): I16.1 - HYPERTENSIVE EMERGENCY (5) Thrombocytopenia Code(s): D69.6 - THROMBOCYTOPENIA, UNSPECIFIED (6) Type 2 diabetes mellitus Code(s): E11.9 - TYPE 2 DIABETES MELLITUS WITHOUT COMPLICATIONS Qualifiers: Diabetes mellitus complication status: without complication Diabetes mellitus long-term insulin use: without long-term use Qualified Code(s): E11.9 - Type 2 diabetes mellitus without complications Assessment/Plan BP CONTROL O2 SUPPLEMENTATION R/O RENAL ARTERY STENOSIS 24 HOUR URINE FOR 5HIAA WILL FOLLOW THANK YOU Idalia PATRICK MD
[2017-07-21] MEDS ORDERED: PT OWN MED DRAWER 7, Y5N ONE (19:01)
[2017-07-21] MEDS ORDERED: INSULIN (NOVOLOG) ASPART 100 UNITS/ML 10ML VIAL ONE ×2 (19:02→21:49)
[2017-07-21] MEDS ORDERED: ACETAMINOPHEN 325 MG TABLET (FP) PO PRN (21:50)
[2017-07-21] MEDS: ASPIRIN 81 MG CHEWABLE TABLETS PO SCH ×2 (21:57→23:39)
[2017-07-22] MEDS ORDERED: CAPTOPRIL 100 MG PO ONE (01:07)
[2017-07-22] MEDS ORDERED: PT OWN MED DRAWER 7, Y5N ONE ×3 (01:19→09:48)
[2017-07-22] MEDS: INSULIN SLIDING SCALE (NOVOLOG) 1 VIAL SQ SCH ×2 (06:46→12:17)
[2017-07-22 07:12] LABS: HEMATOCRIT 43.2 % (32.4-45.2); HEMOGLOBIN 15.2 GM/dL (10.7-15.3); MCH 34.9 pg (25.7-33.7); MCHC 35.2 g/dl (32.0-36.0); MEAN PLT VOLUME 7.4 fl (7.5-11.1); PLATELET COUNT 89 K/MM3 (134-434); RBC 4.36 M/mm3 (3.60-5.2); RDW 12.6 % (11.6-15.6); WHITE BLOOD COUNT 4.9 K/mm3 (4.0-10.0)
[2017-07-22 07:45] LABS: ANION GAP 15 (8-16); BLOOD UREA NITROGEN 14 mg/dL (7-18); CALCIUM 8.9 mg/dL (8.5-10.1); CHLORIDE 97 mmol/L (98-107); CO2 24 mmol/L (21-32); GLUCOSE,RANDOM 235 mg/dL (74-106); MAGNESIUM 1.9 mg/dL (1.8-2.4); POTASSIUM 3.1 mmol/L (3.5-5.1); SODIUM 136 mmol/L (136-145)
[2017-07-22 07:46] LABS: CREATININE 0.7 mg/dL (0.55-1.02)
[2017-07-22] MEDS: CHLORTHALIDONE 25 MG TABLET PO SCH ×2 (08:39→10:08)
[2017-07-22] MEDS: ATENOLOL 50 MG TABLET (FP) PO SCH ×2 (08:39→10:08)
[2017-07-22] MEDS ORDERED: POTASSIUM CHLORIDE ORAL LIQUID 20 MEQ/15 ML PO ONE (08:39)
[2017-07-22] MEDS: POTASSIUM CHLORIDE TABS 20 MEQ TABLET.ER (FP) PO SCH ×2 (08:39→10:08)
[2017-07-22] MEDS: CAPTOPRIL 100 MG PO SCH ×2 (08:41→10:08)
[2017-07-22] MEDS: ASPIRIN 81 MG CHEWABLE TABLETS PO SCH (10:07)
[2017-07-22 10:22] VITALS: BP 155/82; PULSE 63; TEMP 98.5
--- NOTE | 2017-07-22 10:52 | PN ---
Progress Note, Physician History of Present Illness: BP control improved, resolved atypical chest pain, occ PVC on telemetry. - Current Medication List Current Medications: Active Medications Acetaminophen (Tylenol -) 650 mg PO Q6H PRN PRN Reason: HEADACHE Last Admin: 07/21/17 21:57 Dose: 650 mg Aspirin (Asa -) [address] [facility] Last Admin: 07/22/17 10:07 Dose: Not Given Atenolol (Tenormin -) [address] [facility] Last Admin: 07/22/17 10:08 Dose: Not Given Chlorthalidone (Hygroton -) [address] [facility] Last Admin: 07/22/17 10:08 Dose: Not Given Insulin Aspart (Novolog Vial Sliding Scale -) [address] [facility] PRN Reason: Protocol Last Admin: 07/22/17 06:46 Dose: 4 units Captopril 100 Mg Tablet - Patient Own Med [address] [facility] Last Admin: 07/22/17 10:08 Dose: Not Given Captopril 100 Mg Tablet - Patient Own Med 0.5 each PO DAILY@1400 [facility] Potassium Chloride (K-Dur -) [address] [facility] Last Admin: 07/22/17 10:08 Dose: Not Given - Objective Vital Signs: Vital Signs Temperature 98.5 F 07/22/17 10:00 Pulse Rate 63 07/22/17 10:00 Respiratory Rate 20 07/22/17 10:00 Blood Pressure 155/82 07/22/17 10:00 O2 Sat by Pulse Oximetry (%) 96 07/22/17 10:00 Constitutional: Yes: No Distress, Calm Neck: Yes: Supple Cardiovascular: Yes: Regular Rate and Rhythm Respiratory: Yes: Regular, CTA Bilaterally Gastrointestinal: Yes: Normal Bowel Sounds, Soft Edema: No Labs: CBC, BMP 07/22/17 05:35 07/22/17 05:35 INR, PTT INR 1.02 (0.82-1.09) 07/20/17 14:16 - ....Imaging EKG: Report Reviewed (Tele: SR occ PVC) Problem List - Problems (1) Coronary artery disease Code(s): I25.10 - ATHSCL HEART DISEASE OF [place] CORONARY ARTERY W/O ANG PCTRS Qualifiers: Coronary Disease-Associated Artery/Lesion type: [place] artery [place] vs. transplanted heart: [place] heart Associated angina: without angina Qualified Code(s): I25.10 - Atherosclerotic heart disease of [place] coronary artery without angina pectoris (2) Abnormal cardiovascular function study Code(s): R94.30 - ABNORMAL RESULT OF CARDIOVASCULAR FUNCTION STUDY, UNSP (3) Type 2 diabetes mellitus Code(s): E11.9 - TYPE 2 DIABETES MELLITUS WITHOUT COMPLICATIONS Qualifiers: Diabetes mellitus complication status: without complication Diabetes mellitus senior care insulin use: without senior care use Qualified Code(s): E11.9 - Type 2 diabetes mellitus without complications (4) Thrombocytopenia Code(s): D69.6 - THROMBOCYTOPENIA, UNSPECIFIED (5) Hypertensive emergency Code(s): I16.1 - HYPERTENSIVE EMERGENCY (6) Diastolic dysfunction without heart failure Code(s): I51.9 - HEART DISEASE, UNSPECIFIED (7) Hypokalemia Code(s): E87.6 - HYPOKALEMIA (8) Premature ventricular complex Code(s): I49.3 - VENTRICULAR PREMATURE DEPOLARIZATION Assessment/Plan 07/21/2017 Echo: Normal biventricular size and fxn, mild MR, TR, RVSP 50-60 mmHg 12/05/2015 Echo: Normal LV size and fxn, mild-mod MR, mild TR 08/14/2015 P-Myoview: Small anteroapical moderate ischemia, LVEF 77% 05/01/2015 L>R moderate atherosclerotic disease without sig. stenosis 1. HTN Urgency improving 2. Type 2 DM 3. CAD with abnormal MPI 4. Diastolic dysfunction with pulm HTN 5. 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 Thrombocytopenia 7. Hypokalemia 8. PVC 1. Given somewhat complicated medication regimen with multiple drug reactions, continue her home medication therapy which consists of Atenolol 100mg daily, Chlorthalidone 25mg daily, Captopril 100mg qAM and PM, 50 mg q12 PM and reassess BP control, replete K, continue ASA 81 qd 2. Ruled out for [place] 3. Renovascular U/S may be performed as outpatient 4. Eventual outpatient f/u in office with Dr. Holloway post discharge
--- NOTE | 2017-07-22 11:27 | DS ---
Physical Exam: SUBJECTIVE: Patient seen and examined. She is feeling much better, no cp, sob, all questions answered OBJECTIVE: Vital Signs Period Temp Pulse Resp BP Sys/[place] Pulse Ox Last 24 Hr 97.2 F-98.7 F 63-73 20-20 155-192/75-90 96-98 PE Neuro: alert, awake, cn 2-12intact Pulm: CTAB CV: s1 s2 rrr no mrg Abd: s nt nd + bs Ext: warm, no le edema Laboratory Results - last 24 hr 07/21/17 07/21/17 07/21/17 11:57 17:26 21:46 WBC RBC Hgb Hct MCV MCH MCHC RDW Plt Count MPV Sodium Potassium Chloride Carbon Dioxide Anion Gap BUN Creatinine POC Glucometer 418 279 233 Random Glucose Calcium Magnesium 07/22/17 07/22/17 07/22/17 05:35 05:35 06:07 WBC 4.9 RBC 4.36 Hgb 15.2 Hct 43.2 MCV 99.0 H MCH 34.9 H MCHC 35.2 RDW 12.6 Plt Count 89 L MPV 7.4 L Sodium 136 Potassium 3.1 L Chloride 97 L Carbon Dioxide 24 Anion Gap 15 BUN 14 Creatinine 0.7 POC Glucometer 226 Random Glucose 235 H Calcium 8.9 Magnesium 1.9 HOSPITAL COURSE: Date of Admission:07/20/17 Date of Discharge: 07/22/17 Minutes to complete discharge: 37 Discharge Summary Reason For Visit: HYPERTENSIVE EMERGENCY; CHEST PAIN Current Active Problems Abnormal cardiovascular function study (Acute) Chest pain (Acute) Coronary artery disease (Acute) Diastolic dysfunction without heart failure (Acute) Hypertensive emergency (Acute) Hypokalemia (Acute) Premature ventricular complex (Acute) Thrombocytopenia (Acute) Type 2 diabetes mellitus (Acute) Hospital Course: Initial Hospital Course: Briefly, this 71 year old female with Pmhx of HTN, NIDDM, HLD, chronic thrombocytopenia presented to 's office for HTN urgency with BP 230/ 130 and right sided chest pain which improved with belches. Reports not being able to fill Atenolol scripts, and gets chest pain when she takes metoprolol and labetolol. Subsequent Hospital Course/Progress Note/DC summary: Assessment: 71 year old female admitted with pmhx of HLD, NIDDM, chronic thrombocytopenia, HTN sent to the ED by PCP Dr. Petit for HTN urgency. Plan: 1. HTN Urgency - PT reports being unable to get atenolol filled d/t shortage - Resume home regimen: Atenolol 100mg daily, Chlorthalidone 25mg daily, Captopril 100mg BID; 50mg @12, K dur 20meq daily - Trops x2 negative - Home with 24 hr urine collection 5-HIAA, pt to drop off tomorrow in outpt registration - Renal us r/o EDUARDO to be done as out pt PCP aware - New prescriptions sent to [facility], takes pt insurance 2. DM II - Resume home po antidiabetics 3. Anxiety - Valium 5mg PRN 4. Chronic Thrombocytopenia 5. Hypomagnesemia - Repleted Dispo: - Home with above follow up and plan - Pt and aware and agree to above Condition: Stable - Instructions Diet, Activity, Other Instructions: Please return the ED for any new, persistent, or worsening symptoms. Follow up with your PCP in 1 week Take home medications as listed on home medication list Continue urine collection until tomorrow morning, you will then need to drop it off on the first floor in outpatient registration with the blood collection tech. They are expecting you and have your labels ready. Referrals: Lupe Holloway MD [Staff Physician] - Alonso Petit MD [Primary Care Provider] - Disposition: HOME - Home Medications Comprehensive Discharge Medication List: Ambulatory Orders Diazepam [Valium] 5 mg PO PRN PRN 04/24/12 Potassium Chloride [K-Dur -] 20 meq PO DAILY 04/24/12 metFORMIN HCL [Glucophage -] 500 mg PO BID 04/24/12 Aspirin 81 mg PO DAILY 07/20/17 Captopril 50 mg PO 1200 07/20/17 Captopril 100 mg PO BID 07/20/17 Chlorthalidone 25 mg PO DAILY 07/20/17 Glyburide 5 mg PO DAILY 07/20/17 Atenolol [Tenormin -] 100 mg PO DAILY #30 tablet 07/22/17 This patient is new to me today: No Emergency Visit: Yes ED Registration Date: 07/20/17 Care time: The patient presented to the Emergency Department on the above date and was hospitalized for further evaluation of their emergent condition. Critical Care patient: No - Discharge Referral Referred to [facility] Med P.C.: No
[2017-07-22] MEDS ORDERED: CAPTOPRIL 100 MG PO SCH (14:00)
== END 2017-07-22 12:35 | disposition home or self-care (01) | DRG 305 ==
LOC: JER 13:53 → JERBED 14:19 → J4W 21:23 → J4S 07-22 00:01
PROVIDERS: ADMIT Specialist; ATTEND Nurse Practitioner Acute Care
DX: I16.1 Hypertensive emergency (principal); E11.65 Type 2 diabetes mellitus with hyperglycemia; E83.42 Hypomagnesemia; E87.6 Hypokalemia; Z79.84 Long term (current) use of oral hypoglycemic drugs; E78.5 Hyperlipidemia, unspecified; R07.89 Other chest pain; Z91.14 Patient's other noncompliance with medication regimen; D69.6 Thrombocytopenia, unspecified; F41.9 Anxiety disorder, unspecified; I25.10 Atherosclerotic heart disease of native coronary artery without angina pectoris; E11.51 Type 2 diabetes mellitus with diabetic peripheral angiopathy without gangrene; I34.0 Nonrheumatic mitral (valve) insufficiency; I36.1 Nonrheumatic tricuspid (valve) insufficiency; I49.3 Ventricular premature depolarization; I27.20 Pulmonary hypertension, unspecified
CPT/HCPCS: 36415; 71045-TC-FY; 80048; 80053; 81003; 81015; 82550; 82962; 83497; 83735; 84100; 84484; 85025; 85027; 85610; 93005; 93010; 93306-TC; 99285-25

== ENCOUNTER 2018-11-11 13:00 | Inpatient (IN) | payer OTHER ==
[2018-11-11 13:09] VITALS: BMI 24.6
--- NOTE | 2018-11-11 13:12 | PDOC ---
Rapid Medical Evaluation Time Seen by Provider: 11/11/18 13:06 Medical Evaluation: Allergies Allergy/AdvReac Type Severity Reaction Status Date / Time carvedilol [From Coreg] Allergy Verified 11/11/18 13:02 hydralazine Allergy Verified 11/11/18 13:02 nebivolol [From Bystolic] Allergy Verified 11/11/18 13:02 alprazolam [From Xanax] AdvReac Itching Verified 11/11/18 13:02 amlodipine besylate AdvReac Rash Verified 11/11/18 13:02 [From Norvasc] captopril AdvReac Itching Verified 11/11/18 13:02 gabapentin [From Neurontin] AdvReac Swelling Verified 11/11/18 13:02 hydrochlorothiazide AdvReac Swelling Verified 11/11/18 13:02 [From Aldactazide] hydrocortisone AdvReac Elevated Verified 11/11/18 13:02 [From Cortizone-10] Blood Pressure metoprolol succinate AdvReac Verified 11/11/18 13:02 [From Toprol XL] mupirocin AdvReac Rash Verified 11/11/18 13:02 nifedipine [From Procardia] AdvReac Rash Verified 11/11/18 13:02 nitroglycerin AdvReac Verified 11/11/18 13:02 olmesartan medoxomil AdvReac Low Blood Verified 11/11/18 13:02 [From Benicar] Pressure paroxetine HCl [From Paxil] AdvReac Elevated Verified 11/11/18 13:02 Blood Pressure pregabalin [From Lyrica] AdvReac Swelling Verified 11/11/18 13:02 spironolactone AdvReac Swelling Verified 11/11/18 13:02 [From Aldactazide] valsartan [From Diovan] AdvReac Swelling Verified 11/11/18 13:02 SE RA PES AdvReac Uncoded 11/11/18 13:02 11/11/18 13:06 I have performed a brief in-person evaluation of this patient. The patient presents with a chief complaint of: L LE pain and redness x 1 month. H/o PAD s/p angioplasty of RLE, HTN, DM Pertinent physical exam findings:tense, non-blanchable, non-tender, dusky appearing erythema to L foot/ankle diffusely, similar appearing rash locally to lateral L lower leg, no swelling, skin warm to touch, unable to palate pedal pulses I have ordered the following:labs, arterial and vascular doppler The patient will proceed to the ED for further evaluation. 11/11/18 13:25 Discharge Disposition - Diagnosis Lower extremity pain Qualifiers: Laterality: left Qualified Code(s): M79.605 - Pain in left leg - Referrals - Patient Instructions - Post Discharge Activity
--- NOTE | 2018-11-11 13:30 | PDOC ---
History of Present Illness - General Chief Complaint: Pain Stated Complaint: PAIN LWR LEGS Time Seen by Provider: 11/11/18 13:06 History Source: Patient - History of Present Illness Initial Comments: 11/11/18 13:51 PCP: Dr. Amaro Patient is a 72 year old female came in to the ED complaining of " redness of the left foot". As per the patient, it started with pain in the left moreau then noticed reddish discoloration of skin of her left foot, about a month ago which didn't resolve. She feels tightness in the left foot whenever she walks but no pain. Patient also reports that around the same time, she had epigastric pain and periumbilical area demond at night, radiating towards the right side, aggravated on lying and relieved while walking. Patient reports that on Fathers day this year she had bright red blood per rectum, attributes to hemorrhoidal bleed and she was sitting for a prolonged period of time. And since a week, has black tarry stool. Last colonoscopy was [address] Mercado and it was normal. Patient denies chest pain, sob, cough, palpitation, nausea, vomiting. Bladder habit normal. Sleep/Appetite normal. Past Medical history: HTN, DM, CAD, Diastolic dysfunction, PAD s/p CLEANING ATTENDANT, Thrombocytopenia Allergies: Carvedilol, hydralazine, nebivolol, alprazolam, Amlodipine Past Surgical History Smoking/Alcohol/Drugs-Denies Social: Lives at home. Past History - Travel Traveled outside of the country in the last 30 days: No Close contact w/someone who was outside of country & ill: No - Past Medical History Allergies/Adverse Reactions: Allergies Allergy/AdvReac Type Severity Reaction Status Date / Time carvedilol [From Coreg] Allergy Verified 11/11/18 13:02 hydralazine Allergy Verified 11/11/18 13:02 nebivolol [From Bystolic] Allergy Verified 11/11/18 13:02 hydrochlorothiazide AdvReac Severe Itching Verified 11/12/18 02:14 [From Aldactazide] alprazolam [From Xanax] AdvReac Unknown Verified 11/12/18 02:13 amlodipine besylate AdvReac Rash Verified 11/11/18 13:02 [From Norvasc] gabapentin [From Neurontin] AdvReac Swelling Verified 11/11/18 13:02 hydrocortisone AdvReac Verified 11/12/18 02:22 [From Cortizone-10] metoprolol succinate AdvReac Elevated Verified 11/12/18 02:22 [From Toprol XL] Blood Pressure mupirocin AdvReac Rash Verified 11/11/18 13:02 nifedipine [From Procardia] AdvReac Verified 11/12/18 02:22 nitroglycerin AdvReac Verified 11/11/18 13:02 olmesartan medoxomil AdvReac Low Blood Verified 11/11/18 13:02 [From Benicar] Pressure paroxetine HCl [From Paxil] AdvReac Elevated Verified 11/11/18 13:02 Blood Pressure pregabalin [From Lyrica] AdvReac Swelling Verified 11/11/18 13:02 spironolactone AdvReac Swelling Verified 11/11/18 13:02 [From Aldactazide] valsartan [From Diovan] AdvReac Verified 11/12/18 02:22 SE RA PES AdvReac Uncoded 11/11/18 13:02 Home Medications: Ambulatory Orders Diazepam [Valium] 5 mg PO PRN PRN 04/24/12 metFORMIN HCL [Glucophage -] 500 mg PO BID 04/24/12 Aspirin 81 mg PO DAILY 07/20/17 Captopril 100 mg PO BID 07/20/17 Glyburide 5 mg PO BID 07/20/17 Atenolol/Chlorthalidone [Tenoretic 100 Tablet] 1 each PO ASDIR 11/11/18 Atenolol [Tenormin -] 100 mg PO BID 11/12/18 Captopril 50 mg PO DAILY 11/12/18 Anemia: Yes Cardiac Disorders: Yes (LEAKY VALVES) COPD: No Diabetes: Yes GI Disorders: Yes (DIVERTICULOSIS,CONSTIPATION,IBS) HTN: Yes - Surgical History Abdominal Surgery: Yes (ovarian cyst) - Suicide/Smoking/Psychosocial Hx Smoking Status: No Smoking History: Unknown if ever smoked Number of Cigarettes Smoked Daily: 0 Hx Alcohol Use: No Drug/Substance Use Hx: No Substance Use Type: None Review of Systems - Review of Systems Able to Perform ROS?: Yes Is the patient limited Citizen Of [place] proficient: No *Physical Exam - Vital Signs Last Vital Signs Temp Pulse Resp BP Pulse Ox 98.4 F 73 18 161/94 100 11/11/18 13:01 11/11/18 13:01 11/11/18 13:01 11/11/18 13:01 11/11/18 13:01 - Physical Exam Comments: 11/11/18 14:01 General: Patient is sitting in bed comfortably, awake, alert, oriented x 3, in no acute distress HEENT: EOM intact, no pallor or icterus, Telangiectasia in the left cheek Chest: B/L lungs clear, no added sounds CVS: Regular rate and rhythm, S1, S2, no murmur . Abdomen: Soft, tenderness in the right lower quadrant Rectal exam: External hemorrhoids, no cait bleed, empty rectal vault. Stool for Occult sent. Ext: Left foot- reddish discoloration of the left foot, decreased pulses on the left foot as compared to the right. ED Treatment Course - LABORATORY CBC & Chemistry Diagram: 11/12/18 07:00 11/12/18 07:00 Medical Decision Making - Medical Decision Making 11/11/18 14:11 Patient is a 72 year old female with PMHx of HTN, DM, CAD, Diastolic dysfunction , PAD s/p CLEANING ATTENDANT, Thrombocytopenia came in to the ED complaining of " redness of the left foot". Differential diagnosis of the redness of left foot: Peripheral vascular disease , Erythromelalgia D/D of abdominal pain: Pancreatitis, appendicitis, diverticulitis, colitis, GI bleed Will send CBC, CMP, UA, ultrasound of Left foot-duplex and arterial. Stool for occult Abdomen/pelvis CT with IV Contrast. 11/11/18 14:12 Duplex of Left LE shows: Extensive atherosclerotic disease with evidence for a hemodynamically significant stenosis involving the distal SFA and popliteal arteries. Clinical correlation and follow-up studies recommended. Call placed to radiology department, spoke with Mr. Almas nugent tech and requested if they could perform the abdominal CT with CTA to avoid more radiation exposure. Awaiting call back from radiologist. 11/11/18 15:31 Patient now complaining of left sided abdominal pain. Given no fever, no leukocytosis, benign right sided abdominal exam, appendicitis less likely. Will order CTA of abdomen/Pelvis 11/11/18 15:[address] Ojeda. Dr. Luz recommends CTA 11/11/18 16:[address] Luu in the past. Case discussed with Dr. Luu. 11/11/18 19:23 Will [facility] for admission. 11/11/18 20:26 Case discussed with VIGNESH Ochoa. Awaiting EKG and CTA report. Accepted by [facility] for admission. *DC/Admit/Observation/Transfer Diagnosis at time of Disposition: Lower extremity pain Qualifiers: Laterality: left Qualified Code(s): M79.605 - Pain in left leg - Discharge Dispostion Disposition: HOME Condition at time of disposition: Stable - Referrals - Patient Instructions - Post Discharge Activity
[2018-11-11 13:59] LABS: BASO % 0.7 % (0-2.0); EOS % 3.3 % (0-4.5); HEMATOCRIT 44.3 % (32.4-45.2); HEMOGLOBIN 15.7 GM/dL (10.7-15.3); LYMPH % 16.3 % (8-40); MCH 36.1 pg (25.7-33.7); MCHC 35.4 g/dl (32.0-36.0); MEAN CELL VOLUME 102.2 fl (80-96); MEAN PLT VOLUME 7.2 fl (7.5-11.1); MONO % 10.1 % (3.8-10.2); NEUT % 69.6 % (42.8-82.8); PLATELET COUNT 115 K/MM3 (134-434); RBC 4.34 M/mm3 (3.60-5.2); RDW 13.2 % (11.6-15.6); WHITE BLOOD COUNT 4.3 K/mm3 (4.0-10.0)
[2018-11-11 14:07] LABS: INR 1.1 (0.83-1.09)
[2018-11-11 14:37] LABS: ALBUMIN 3.9 g/dl (3.4-5.0); BILIRUBIN,TOTAL 0.8 mg/dL (0.2-1); BLOOD UREA NITROGEN 17.5 mg/dL (7-18); CALCIUM 9.5 mg/dL (8.5-10.1); CREATININE 0.9 mg/dL (0.55-1.3); POTASSIUM 4.2 mmol/L (3.5-5.1); TOT PROT 7.6 g/dl (6.4-8.2)
--- NOTE | 2018-11-11 18:45 | PDOC ---
Documentation entered by Jay Castrejon SCRIBE, acting as scribe for Giovanna Busch MD. Giovanna Busch MD: This documentation has been prepared by the Cash banda Daniel, SCRIBE, under my direction and personally reviewed by me in its entirety. I confirm that the documentation accurately reflects all work, treatment, procedures, and medical decision making performed by me. Attending Attestation - Resident Resident Name: Kristi Barrow - ED Attending Attestation I have performed the following: I have examined & evaluated the patient, The case was reviewed & discussed with the resident, I agree w/resident's findings & plan, Exceptions are as noted - HPI HPI: 11/11/18 14:10 The patient is a 72 year old female with a past medical history of HTN, HLD, diabetes, CAD, and peripheral artery disease s/p RLE thrombectomy "many years ago" here today for evaluation of redness to the left foot, rectal bleeding, and left sided abdominal pain. The patient reports that she has had redness in her left foot for 1 month as well as tightness in her left foot, left moreau pain , and periumbilical pain that radiates to the left lower quadrant for 1 month. She reports that she has had progessive pain in her calf when she walks very short distances. When asked to estimate the distance, she states from her stretcher to the bathroom in the ED. She also notes black tarry stools for one week and 1 episode of BRBPR that occurred on 11/05/18. She reports talking to her PCP who told her to come to the ER. Patient denies headache, lightheadedness, focal weakness/numbness. Denies fever , chills. Denies chest pain, shortness of breath. Denies nausea, vomiting, diarrhea. PCP: Alonso Petit - Physicial Exam PE: 11/11/18 14:11 GENERAL: Awake, alert, and fully oriented, in no acute distress. Comfortable appearing HEAD: No signs of trauma EYES: EOMI, sclera anicteric, conjunctiva clear ENT: Oropharynx clear without exudates. Moist mucosa NECK: Normal ROM, supple, no lymphadenopathy, JVD, or masses LUNGS: Breath sounds equal, clear to auscultation bilaterally. No wheezes, and no crackles HEART: Regular rate and rhythm, normal S1 and S2, no murmurs, rubs or gallops ABDOMEN: Soft, nontender, normoactive bowel sounds. No guarding, no rebound. No masses EXTREMITIES: Normal range of motion, no edema. No cords. While LLE is warm, pulse is only found by doppler, not palpable. +ttp to L calf. BACK: No midline spinal tenderness in cervical/thoracic/lumbar region NEUROLOGICAL: Normal speech, cranial nerves intact, 5/5 strength in all 4 extremities, normal sensation to light touch in all 4 extremities, normal cerebellar exam, normal gait, normal reflexes and tone SKIN: +erythema extending from L foot to distal calf - Medical Decision Making 11/11/18 16:32 72yo pt with MMP including PAD s/p RLE thrombectomy many years ago presents to the ED with symptoms concerning for claudication in the RLE with new erythema and diminished pulses on exam. As such, US vasc and arterial was ordered by RME team with arterial US revealing hemodynamically significant stenosis in the RLE. Case was discussed with Dr. Luz (vascular surgeon sales representative consultant) who recommends CTA aorta with KAREEM gutierrez. Additionally, pt was also c/o 1 month of LLQ abdominal pain, however, given dimished pulses and concern for limb threatening occlusion, decision was made to prioritize a CTA over a CTAP. After the patient was sent to the radiology department for a CTA, we were informed that the patient was being sent back because the radiologist did not think the CTA was necessary in light of her abnormal US and wanted the patient rather to drink PO contrast for a CTAP for her LLQ pain. This was not discussed with me prior to the patient being sent back to the ED. I discussed the case with Dr. Gandhi who expressed that a CTA is not indicated as her foot is not cold or pale etc. I explained that the CTA was requested by the vascular surgeon sales representative consultant. Patient later told us that her previous thrombectomy was done by Dr. Falk but she could not remember his name steph. I called and also spoke with Dr. Luu who also recommended a CTA. Dr. Gandhi has agreed to get the study. We have informed him also that it has been recommended by Dr. Luz and Dr. Luu. CTA pending. 11/11/18 20:32 CTA read by imaging sales representative consultant +moderate to significant stenosis, but no occlusion Pt has been admitted to hospitalist for further mgmt
--- NOTE | 2018-11-11 22:06 | HP ---
Admitting History and Physical - Primary Care Physician PCP: Alonso Petit - Admission Chief Complaint: Left Leg Redness/Pain, Epigastric Pain, Tarry Stool History of Present Illness: This is a 72 y/o woman from home with a PMHx of HTN, CAD, Diastolic Dysfunction , PAD s/p angioplasty RLE, DM, IBS, Diverticulosis. Who presents to the ED with her for pain and redness to left foot with pain radiating to her left calf x 1 month, intermittent epigastric radiating to LMQ x 1 month. Patient also reports having BRBPR last Wednesday now resolved and black tarry stools 1 week prior- now resolved. Patient reports that the pain and tightness to her left foot increases with walking long distances. Patient denies fever, chills, cough, SOB, CP, palpitations, N/V, hematuria, dysuria. Patient reports her last Colonoscopy was 3 yrs History Source: Patient Limitations to Obtaining History: No Limitations - Past Medical History Cardiovascular: Yes: CAD, CHF (Diastolic Dysfunction), HTN, Other (PAD). No: AFIB Pulmonary: Yes: COPD. No: O2 Dependent Gastrointestinal: Yes: Constipation, Diverticulosis, Hemorrhoids, Irritable Bowel Disease, Other (Pancreatic Cysts). 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 History of Recent Travel: No Home Medications - Allergies Allergies/Adverse Reactions: Allergies Allergy/AdvReac Type Severity Reaction Status Date / Time carvedilol [From Coreg] Allergy Verified 11/11/18 13:02 hydralazine Allergy Verified 11/11/18 13:02 nebivolol [From Bystolic] Allergy Verified 11/11/18 13:02 hydrochlorothiazide AdvReac Severe Itching Verified 11/12/18 02:14 [From Aldactazide] alprazolam [From Xanax] AdvReac Unknown Verified 11/12/18 02:13 amlodipine besylate AdvReac Rash Verified 11/11/18 13:02 [From Norvasc] gabapentin [From Neurontin] AdvReac Swelling Verified 11/11/18 13:02 hydrocortisone AdvReac Verified 11/12/18 02:22 [From Cortizone-10] metoprolol succinate AdvReac Elevated Verified 11/12/18 02:22 [From Toprol XL] Blood Pressure mupirocin AdvReac Rash Verified 11/11/18 13:02 nifedipine [From Procardia] AdvReac Verified 11/12/18 02:22 nitroglycerin AdvReac Verified 11/11/18 13:02 olmesartan medoxomil AdvReac Low Blood Verified 11/11/18 13:02 [From Benicar] Pressure paroxetine HCl [From Paxil] AdvReac Elevated Verified 11/11/18 13:02 Blood Pressure pregabalin [From Lyrica] AdvReac Swelling Verified 11/11/18 13:02 spironolactone AdvReac Swelling Verified 11/11/18 13:02 [From Aldactazide] valsartan [From Diovan] AdvReac Verified 11/12/18 02:22 SE RA PES AdvReac Uncoded 11/11/18 13:02 - Home Medications Home Medications: Ambulatory Orders Diazepam [Valium] 5 mg PO PRN PRN 04/24/12 metFORMIN HCL [Glucophage -] 500 mg PO BID 04/24/12 Aspirin 81 mg PO DAILY 07/20/17 Captopril 100 mg PO BID 07/20/17 Glyburide 5 mg PO BID 07/20/17 Atenolol/Chlorthalidone [Tenoretic 100 Tablet] 1 each PO ASDIR 11/11/18 Atenolol [Tenormin -] 100 mg PO BID 11/12/18 Captopril 50 mg PO DAILY 11/12/18 Home Medications (free text): Captopril 100mg BID. Captopril 50mg evening. Tenormin 100mg HS. Chlorthalidone 25mg QD. Slow Mg QD. Valium 2.5mg PRN. Centrium Silver QD. Metformin 500mg BID. Glyburide 5mg QD Family Disease History - Family Disease History Family Disease History: [place]: Father (Throat, ), Mother (Colon, ) Other Family History: Aunt- Diabetes Mellitus Review of Systems - Review of Systems Constitutional: reports: No Symptoms Eyes: reports: No Symptoms HENT: reports: No Symptoms Neck: reports: No Symptoms Cardiovascular: reports: Edema Respiratory: reports: No Symptoms Gastrointestinal: reports: Abdominal Pain, Melena, Other (Hematochezia) Genitourinary: reports: No Symptoms Breasts: reports: No Symptoms Reported Musculoskeletal: reports: Extremity Pain Integumentary: reports: Erythema Neurological: reports: Parasthesia Endocrine: reports: No Symptoms Hematology/Lymphatic: reports: No Symptoms Psychiatric: reports: No Symptoms Pain Intensity: 6 Physical Examination Vital Signs: Vital Signs Temperature 98.4 F 11/11/18 13:01 Pulse Rate 73 11/11/18 13:01 Respiratory Rate 18 11/11/18 13:01 Blood Pressure 161/94 11/11/18 13:01 O2 Sat by Pulse Oximetry (%) 100 11/11/18 13:01 Constitutional: Yes: No Distress, Anxious Eyes: Yes: WNL, Conjunctiva Clear, EOM Intact, PERRL HENT: Yes: WNL, Atraumatic, Normocephalic Neck: Yes: WNL, Supple, Trachea Midline Cardiovascular: Yes: WNL, Regular Rate and Rhythm, S1, S2 Respiratory: Yes: WNL, Regular, CTA Bilaterally Gastrointestinal: Yes: Soft, Hyperactive Bowel Sounds, Tenderness (LMQ), Tenderness, Epigastrium ...Rectal Exam: Yes: Guaiac Negative, Hemorrhoids/External Renal/: Yes: WNL Breast(s): Yes: WNL Extremities: Yes: Erythema (left foot) Edema: No Peripheral Pulses: Left Doralis Pedis: 1+, Right Dorsalis Pedis: 1+ Integumentary: Yes: Erythema (left foot) Neurological: Yes: Alert, Oriented, Paresthesia Psychiatric: Yes: WNL, Alert, Oriented Labs: CBC, BMP 11/11/18 13:39 11/11/18 13:39 Laboratory Results - last 24 hr 11/11/18 11/11/18 11/11/18 13:39 13:39 13:39 WBC 4.3 RBC 4.34 Hgb 15.7 H Hct 44.3 MCV 102.2 H MCH 36.1 H MCHC 35.4 RDW 13.2 Plt Count 115 L D MPV 7.2 L Absolute Neuts (auto) 3.0 Neutrophils % 69.6 Lymphocytes % 16.3 D Monocytes % 10.1 Eosinophils % 3.3 Basophils % 0.7 Nucleated RBC % 0 PT with INR 13.00 INR 1.10 H Sodium 133 L Potassium 4.2 Chloride 93 L Carbon Dioxide 31 Anion Gap 9 BUN 17.5 Creatinine 0.9 Est GFR (CKD-EPI)AfAm 74.04 Est GFR (CKD-EPI)NonAf 63.88 POC Glucometer Random Glucose 353 H* Calcium 9.5 Total Bilirubin 0.8 AST 54 H ALT 59 Alkaline Phosphatase 122 H Total Protein 7.6 Albumin 3.9 Urine Color Urine Appearance Urine pH Ur Specific [place] Urine Protein Urine Glucose (UA) Urine Ketones Urine Blood Urine Nitrite Urine Bilirubin Urine Urobilinogen Ur Leukocyte Esterase Stool Occult Blood Blood Type Antibody Screen 11/11/18 11/11/18 11/11/18 13:39 17:14 21:35 WBC RBC Hgb Hct MCV MCH MCHC RDW Plt Count MPV Absolute Neuts (auto) Neutrophils % Lymphocytes % Monocytes % Eosinophils % Basophils % Nucleated RBC % PT with INR INR Sodium Potassium Chloride Carbon Dioxide Anion Gap BUN Creatinine Est GFR (CKD-EPI)AfAm Est GFR (CKD-EPI)NonAf POC Glucometer Random Glucose Calcium Total Bilirubin AST ALT Alkaline Phosphatase Total Protein Albumin Urine Color Yellow Urine Appearance Clear Urine pH 7.0 Ur Specific [place] 1.021 Urine Protein Negative Urine Glucose (UA) 2+ H Urine Ketones Negative Urine Blood Negative Urine Nitrite Negative Urine Bilirubin Negative Urine Urobilinogen 0.2 Ur Leukocyte Esterase Negative Stool Occult Blood Negative Blood Type O POSITIVE Antibody Screen Negative 11/11/18 21:39 WBC RBC Hgb Hct MCV MCH MCHC RDW Plt Count MPV Absolute Neuts (auto) Neutrophils % Lymphocytes % Monocytes % Eosinophils % Basophils % Nucleated RBC % PT with INR INR Sodium Potassium Chloride Carbon Dioxide Anion Gap BUN Creatinine Est GFR (CKD-EPI)AfAm Est GFR (CKD-EPI)NonAf POC Glucometer 307 Random Glucose Calcium Total Bilirubin AST ALT Alkaline Phosphatase Total Protein Albumin Urine Color Urine Appearance Urine pH Ur Specific [place] Urine Protein Urine Glucose (UA) Urine Ketones Urine Blood Urine Nitrite Urine Bilirubin Urine Urobilinogen Ur Leukocyte Esterase Stool Occult Blood Blood Type Antibody Screen Intake & Output 11/09/18 11/10/18 11/11/18 11/12/18 23:59 23:59 23:59 23:59 Weight 67.132 kg Imaging - Results Cat Scan: Report Reviewed, Image Reviewed EKG: Pending Problem List - Problems (1) Superficial femoral artery occlusion Assessment/Plan: Arterial Duplex LE- reviewed Appreciate Vascular Consult Code(s): I70.209 - UNSP ATHSCL [place] ARTERIES OF EXTREMITIES, UNSP EXTREMITY (2) Lower extremity pain Assessment/Plan: r/o DVT vs Arterial Occlusion Wells Score 2 Arterial Duplex LE- Distal SFA Occlusion Duplex LE- neg DVT Appreciate Vascular consult-per ED resident Dr. Luz aware Elevate extremity Neurovascular check Monitor vitals Code(s): M79.606 - PAIN IN LEG, UNSPECIFIED Qualifiers: Laterality: left Qualified Code(s): M79.605 - Pain in left leg (3) Coronary artery disease Assessment/Plan: Continue home meds Code(s): I25.10 - ATHSCL HEART DISEASE OF [place] CORONARY ARTERY W/O ANG PCTRS Qualifiers: Coronary Disease-Associated Artery/Lesion type: [place] artery [place] vs. transplanted heart: [place] heart Associated angina: without angina Qualified Code(s): I25.10 - Atherosclerotic heart disease of [place] coronary artery without angina pectoris (4) Diastolic dysfunction without heart failure Assessment/Plan: Stable CTA Code(s): I51.9 - HEART DISEASE, UNSPECIFIED (5) Thrombocytopenia Assessment/Plan: Monitor platelets Code(s): D69.6 - THROMBOCYTOPENIA, UNSPECIFIED (6) Type 2 diabetes mellitus Assessment/Plan: Sub Optimal BGMs ISS Hold Metformin secondary to CTA with IV dye Code(s): E11.9 - TYPE 2 DIABETES MELLITUS WITHOUT COMPLICATIONS Qualifiers: Diabetes mellitus penitentiary insulin use: without termite treater helper use Diabetes mellitus complication status: without complication Qualified Code(s): E11.9 - Type 2 diabetes mellitus without complications (7) Hemorrhoids Assessment/Plan: stool occult neg Preparation H prn Code(s): K64.9 - UNSPECIFIED HEMORRHOIDS Assessment/Plan This is a 72 y/o woman admitted for Left Foot Pain secondary to Occlusion of SFA for further evaluation of their emergent condition. Plan: See Problem List FEN Replete lytes prn Diabetic, Low Na Diet DVT ppx OOB TEDs Heparin SQ, monitor platelets closely Dispo: Requires Inpatient Care Visit type - Emergency Visit Emergency Visit: Yes ED Registration Date: 11/11/18 Care time: The patient presented to the Emergency Department on the above date and was hospitalized for further evaluation of their emergent condition. - New Patient This patient is new to me today: Yes Date on this admission: 11/11/18 - Critical Care Critical Care patient: No
[2018-11-11] MEDS ORDERED: INSULIN (NOVOLOG) ASPART 100 UNITS/ML 10ML VIAL ONE (22:13)
[2018-11-11 22:20] LABS: URINE APPEARANCE CLEAR; URINE BILIRUBIN NEGATIVE (NEGATIVE); URINE COLOR YELLOW; URINE GLUCOSE (UA) 2+ (NEGATIVE); URINE KETONE NEGATIVE (NEGATIVE); URINE LEUK ESTERASE NEGATIVE (NEGATIVE); URINE NITRITE NEGATIVE (NEGATIVE); URINE PROTEIN NEGATIVE (NEGATIVE); URINE UROBILINOGEN 0.2 mg/dL (0.2-1.0)
[2018-11-11] MEDS: INSULIN SLIDING SCALE (NOVOLOG) 1 VIAL SQ SCH (22:32)
[2018-11-12] MEDS: INSULIN SLIDING SCALE (NOVOLOG) 1 VIAL SQ SCH ×4 (06:34→16:41)
[2018-11-12 07:55] LABS: BASO % 0.9 % (0-2.0); EOS % 4.5 % (0-4.5); HEMATOCRIT 37.4 % (32.4-45.2); HEMOGLOBIN 13.4 GM/dL (10.7-15.3); LYMPH % 27.5 % (8-40); MCH 36.3 pg (25.7-33.7); MCHC 35.9 g/dl (32.0-36.0); MEAN CELL VOLUME 101.3 fl (80-96); MONO % 10.5 % (3.8-10.2); NEUT % 56.6 % (42.8-82.8); PLATELET COUNT 102 K/MM3 (134-434); RBC 3.69 M/mm3 (3.60-5.2); RDW 12.7 % (11.6-15.6)
[2018-11-12 08:20] LABS: BLOOD UREA NITROGEN 11.5 mg/dL (7-18); CREATININE 0.7 mg/dL (0.55-1.3); POTASSIUM 3.1 mmol/L (3.5-5.1)
[2018-11-12] MEDS ORDERED: ASPIRIN 81 MG CHEWABLE TABLETS PO SCH (10:00)
[2018-11-12] MEDS ORDERED: CHLORTHALIDONE 25 MG TABLET PO SCH (10:00)
[2018-11-12] MEDS ORDERED: LISINOPRIL 20 MG TABLET (FP) PO SCH (10:00)
[2018-11-12] MEDS ORDERED: INSULIN (NOVOLOG) ASPART 100 UNITS/ML 10ML VIAL ONE ×2 (12:00→16:40)
--- NOTE | 2018-11-12 12:47 | EKG ---
Test Reason : Blood Pressure : / mmHG Vent. Rate : 074 BPM Atrial Rate : 074 BPM P-R Int : 170 ms QRS Dur : 068 ms QT Int : 418 ms P-R-T Axes : 073 028 051 degrees QTc Int : 463 ms POOR DATA QUALITY, INTERPRETATION MAY BE ADVERSELY AFFECTED SINUS RHYTHM WITH PREMATURE ATRIAL COMPLEXES SEPTAL INFARCT (CITED ON OR BEFORE 20-JUL-2017) ABNORMAL ECG Confirmed by DAVE LOW MD ([id number]) on 11/12/2018 12:46:39 PM Referred By: Confirmed By:DAVE LOW MD
[2018-11-12] MEDS ORDERED: CAPTOPRIL 100 MG PO SCH ×2 (14:00→22:00)
--- NOTE | 2018-11-12 14:25 | CONSULT ---
Consult - History of Present Illness History of Present Illness: 72 year old woman with history of PAD. She has had a right femoral endarterectomy and has chronic occlusion of right SFA/popliteal with minimal symptoms. 3 weeks ago she had sudden onset of left calf and foot tightness while walking followed by redness in her foot. The tight feeling and discoloration have persisted. She denies pain. She walks without change in the symptoms. - History Source History Provided By: Patient Limitations to Obtaining History: No Limitations - Past Medical History Cardio/Vascular: Yes: CAD, CHF (Diastolic Dysfunction), HTN, Other (PAD). No: AFIB Pulmonary: Yes: COPD. No: O2 Dependent Gastrointestinal: Yes: Constipation, Diverticulosis, Hemorrhoids, Irritable Bowel Disease, Other (Pancreatic Cysts). 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 History of Recent Travel: No Home Medications - Allergies Allergies/Adverse Reactions: Allergies Allergy/AdvReac Type Severity Reaction Status Date / Time carvedilol [From Coreg] Allergy Verified 11/11/18 13:02 hydralazine Allergy Verified 11/11/18 13:02 nebivolol [From Bystolic] Allergy Verified 11/11/18 13:02 hydrochlorothiazide AdvReac Severe Itching Verified 11/12/18 02:14 [From Aldactazide] alprazolam [From Xanax] AdvReac Unknown Verified 11/12/18 02:13 amlodipine besylate AdvReac Rash Verified 11/11/18 13:02 [From Norvasc] gabapentin [From Neurontin] AdvReac Swelling Verified 11/11/18 13:02 hydrocortisone AdvReac Verified 11/12/18 02:22 [From Cortizone-10] metoprolol succinate AdvReac Elevated Verified 11/12/18 02:22 [From Toprol XL] Blood Pressure mupirocin AdvReac Rash Verified 11/11/18 13:02 nifedipine [From Procardia] AdvReac Verified 11/12/18 02:22 nitroglycerin AdvReac Verified 11/11/18 13:02 olmesartan medoxomil AdvReac Low Blood Verified 11/11/18 13:02 [From Benicar] Pressure paroxetine HCl [From Paxil] AdvReac Elevated Verified 11/11/18 13:02 Blood Pressure pregabalin [From Lyrica] AdvReac Swelling Verified 11/11/18 13:02 spironolactone AdvReac Swelling Verified 11/11/18 13:02 [From Aldactazide] valsartan [From Diovan] AdvReac Verified 11/12/18 02:22 SE RA PES AdvReac Uncoded 11/11/18 13:02 - Home Medications Home Medications: Ambulatory Orders Diazepam [Valium] 5 mg PO PRN PRN 04/24/12 metFORMIN HCL [Glucophage -] 500 mg PO BID 04/24/12 Aspirin 81 mg PO DAILY 07/20/17 Captopril 100 mg PO BID 07/20/17 Glyburide 5 mg PO BID 07/20/17 Atenolol/Chlorthalidone [Tenoretic 100 Tablet] 1 each PO ASDIR 11/11/18 Atenolol [Tenormin -] 100 mg PO BID 11/12/18 Captopril 50 mg PO DAILY 11/12/18 Family Disease History - Family Disease History Family Disease History: CA: Father (Throat, ), Mother (Colon, ) Other Family History: Aunt- Diabetes Mellitus Physical Exam Vital Signs: Vital Signs Temperature 97.8 F 11/12/18 09:00 Pulse Rate 65 11/12/18 09:00 Respiratory Rate 18 11/12/18 09:00 Blood Pressure 185/75 H 11/12/18 09:00 O2 Sat by Pulse Oximetry (%) 96 11/12/18 09:00 Constitutional: Yes: No Distress Gastrointestinal: Yes: Soft Extremities: Yes: Cool (Left more than right), Delayed Capillary Refill, Other ( Left forefoot violaceous erythema which does not maria esther with pressure. No ischemic skin changes) Edema: No Peripheral Pulses WNL: No (Plapable femoral, no distal) Labs: CBC, BMP 11/12/18 07:00 11/12/18 07:00 Imaging - Results Cat Scan: Other (CTA shows bilateral popliteal occlusion, patent tibial vessels. ) Problem List - Problems (1) Discoloration of skin of foot Assessment/Plan: The appearance of the left foot is not typical for ischemic skin changes. She has chronic PAD which may be a factor. I am not sure that revascularization will alleviate the findings or symptoms. Additional physiologic testing is needed and can be done as an outpatient. As there is no evidence for infection or acute arterial compromise, she can be discharged for follow-up in my office. Code(s): L81.9 - DISORDER OF PIGMENTATION, UNSPECIFIED
[2018-11-12 14:50] VITALS: BP 151/64; PULSE 70; TEMP 98.2
[2018-11-12] MEDS ORDERED: POTASSIUM CHLORIDE TABS 20 MEQ TABLET.ER (FP) PO ONE (16:44)
--- NOTE | 2018-11-12 17:08 | DS ---
Physical Examination Vital Signs: Vital Signs Temperature 98.2 F 11/12/18 14:48 Pulse Rate 70 11/12/18 14:48 Respiratory Rate 18 11/12/18 09:00 Blood Pressure 151/64 11/12/18 14:48 O2 Sat by Pulse Oximetry (%) 96 11/12/18 09:00 Findings/Remarks: Patient is a 72 y/o female with past medical history of HTN, CAD, Diastolic Dysfunction, PAD s/p angioplasty RLEDM, IBS, Diverticulosis. Patient presented to ER with complaints of pain and redness to left foot radiating to calf x 1 month. Patient states having experienced epigastric pain radiating to left mid quadrant x 1 month. She also states having BRBPR last Wednesday which resolved to black tarry stools. Patient currently denies having epigastric pain, or black tarry stools. Pain to L foot increases with walking long distances. Abdominal CTA with LE runoff done, prelim results reviewed by Dr Luu and patient cleared from vascular, can follow up as outpatient for further testing. Constitutional: Yes: No Distress, Calm Eyes: Yes: Conjunctiva Clear HENT: Yes: Atraumatic Cardiovascular: Yes: Regular Rate and Rhythm Respiratory: Yes: Regular, CTA Bilaterally Gastrointestinal: Yes: Normal Bowel Sounds, Soft Musculoskeletal: Yes: WNL Extremities: Yes: Erythema (L foot) Edema: No Neurological: Yes: Alert, Oriented Psychiatric: Yes: Alert, Oriented Labs: CBC, BMP 11/12/18 07:00 11/12/18 07:00 Discharge Summary Reason For Visit: PAIN LOWER EXTREMITY Current Active Problems Discoloration of skin of foot (Acute) Hemorrhoids (Acute) Lower extremity pain (Acute) Superficial femoral artery occlusion (Acute) Hospital Course: see progress notes Laboratory Tests 11/11/18 11/11/18 11/11/18 13:39 13:39 13:39 WBC 4.3 RBC 4.34 Hgb 15.7 H Hct 44.3 MCV 102.2 H MCH 36.1 H MCHC 35.4 RDW 13.2 Plt Count 115 L D MPV 7.2 L Absolute Neuts (auto) 3.0 Neutrophils % 69.6 Lymphocytes % 16.3 D Monocytes % 10.1 Eosinophils % 3.3 Basophils % 0.7 Nucleated RBC % 0 PT with INR 13.00 INR 1.10 H Sodium 133 L Potassium 4.2 Chloride 93 L Carbon Dioxide 31 Anion Gap 9 BUN 17.5 Creatinine 0.9 Est GFR (CKD-EPI)AfAm 74.04 Est GFR (CKD-EPI)NonAf 63.88 POC Glucometer Random Glucose 353 H* Calcium 9.5 Total Bilirubin 0.8 AST 54 H ALT 59 Alkaline Phosphatase 122 H Total Protein 7.6 Albumin 3.9 Urine Color Urine Appearance Urine pH Ur Specific [place] Urine Protein Urine Glucose (UA) Urine Ketones Urine Blood Urine Nitrite Urine Bilirubin Urine Urobilinogen Ur Leukocyte Esterase Stool Occult Blood Blood Type Antibody Screen 11/11/18 11/11/18 11/11/18 13:39 17:14 21:35 WBC RBC Hgb Hct MCV MCH MCHC RDW Plt Count MPV Absolute Neuts (auto) Neutrophils % Lymphocytes % Monocytes % Eosinophils % Basophils % Nucleated RBC % PT with INR INR Sodium Potassium Chloride Carbon Dioxide Anion Gap BUN Creatinine Est GFR (CKD-EPI)AfAm Est GFR (CKD-EPI)NonAf POC Glucometer Random Glucose Calcium Total Bilirubin AST ALT Alkaline Phosphatase Total Protein Albumin Urine Color Yellow Urine Appearance Clear Urine pH 7.0 Ur Specific [place] 1.021 Urine Protein Negative Urine Glucose (UA) 2+ H Urine Ketones Negative Urine Blood Negative Urine Nitrite Negative Urine Bilirubin Negative Urine Urobilinogen 0.2 Ur Leukocyte Esterase Negative Stool Occult Blood Negative Blood Type O POSITIVE Antibody Screen Negative 11/11/18 11/12/18 11/12/18 21:39 05:58 07:00 WBC 4.0 RBC 3.69 Hgb 13.4 Hct 37.4 D MCV 101.3 H MCH 36.3 H MCHC 35.9 RDW 12.7 Plt Count 102 L MPV 7.0 L Absolute Neuts (auto) 2.3 Neutrophils % 56.6 Lymphocytes % 27.5 D Monocytes % 10.5 H Eosinophils % 4.5 Basophils % 0.9 Nucleated RBC % 0 PT with INR INR Sodium Potassium Chloride Carbon Dioxide Anion Gap BUN Creatinine Est GFR (CKD-EPI)AfAm Est GFR (CKD-EPI)NonAf POC Glucometer 307 187 Random Glucose Calcium Total Bilirubin AST ALT Alkaline Phosphatase Total Protein Albumin Urine Color Urine Appearance Urine pH Ur Specific [place] Urine Protein Urine Glucose (UA) Urine Ketones Urine Blood Urine Nitrite Urine Bilirubin Urine Urobilinogen Ur Leukocyte Esterase Stool Occult Blood Blood Type Antibody Screen 11/12/18 11/12/18 11/12/18 07:00 11:55 16:31 WBC RBC Hgb Hct MCV MCH MCHC RDW Plt Count MPV Absolute Neuts (auto) Neutrophils % Lymphocytes % Monocytes % Eosinophils % Basophils % Nucleated RBC % PT with INR INR Sodium 137 Potassium 3.1 L Chloride 98 Carbon Dioxide 31 Anion Gap 8 BUN 11.5 Creatinine 0.7 Est GFR (CKD-EPI)AfAm 100.32 Est GFR (CKD-EPI)NonAf 86.56 POC Glucometer 312 261 Random Glucose 172 H Calcium 9.0 Total Bilirubin AST ALT Alkaline Phosphatase Total Protein Albumin Urine Color Urine Appearance Urine pH Ur Specific [place] Urine Protein Urine Glucose (UA) Urine Ketones Urine Blood Urine Nitrite Urine Bilirubin Urine Urobilinogen Ur Leukocyte Esterase Stool Occult Blood Blood Type Antibody Screen Active Medications Generic Name Dose Route Start Last Admin Trade Name Freq PRN Reason Stop Dose Admin Aspirin 81 mg 11/12/18 10:00 11/12/18 10:53 Asa - PO 81 mg DAILY SHANNON Administration Atenolol 100 mg 11/12/18 22:00 Tenormin - PO HS SHANNON Chlorthalidone 25 mg 11/12/18 10:00 11/12/18 11:23 [place]gro[place] - PO Not Given DAILY SHANNON Insulin Aspart 1 vial 11/12/18 11:47 11/12/18 16:41 Novolog Vial Sliding Scale - SQ 6 units ACHS SHANNON Administration Protocol (Non-Formulary) ( 50 mg 11/12/18 14:00 11/12/18 14:08 Captopril [Captopril PO 50 mg ] 100 Mg) Pt's Own DAILY@1400 SHANNON Administration Med (Non-Formulary) ( 100 mg 11/12/18 22:00 Captopril [Captopril PO ] 100 Mg) Pt's Own BID SHANNON Med Condition: Stable - Instructions Diet, Activity, Other Instructions: follow up with PMD in 48hrs of discharge Follow up with Vascular Dr Luu for outpatient follow up and testing do not take metformin or glyburide until Wednesday due to the contrast from CT scan return to ER if severe pain, respiratory distress, chest pain Referrals: Alonso Petit MD [Primary Care Provider] - Ishmael Luu MD [Staff Physician] - Raciel Samuel MD [Staff Physician] - Disposition: HOME - Home Medications Comprehensive Discharge Medication List: Ambulatory Orders Diazepam [Valium] 5 mg PO PRN PRN 04/24/12 metFORMIN HCL [Glucophage -] 500 mg PO BID 04/24/12 Aspirin 81 mg PO DAILY 07/20/17 Captopril 100 mg PO BID 07/20/17 Glyburide 5 mg PO BID 07/20/17 Atenolol/Chlorthalidone [Tenoretic 100 Tablet] 1 each PO ASDIR 11/11/18 Atenolol [Tenormin -] 100 mg PO BID 11/12/18 Captopril 50 mg PO DAILY 11/12/18
[2018-11-12] MEDS ORDERED: ATENOLOL 50 MG TABLET (FP) PO SCH (22:00)
== END 2018-11-12 17:56 | disposition home or self-care (01) | DRG 300 ==
LOC: JER 13:00 → JERBED 17:16 → J6S 11-12 01:23
PROVIDERS: ADMIT Family Medicine; ATTEND Family Medicine
DX: E11.51 Type 2 diabetes mellitus with diabetic peripheral angiopathy without gangrene (principal); I50.32 Chronic diastolic (congestive) heart failure; I11.0 Hypertensive heart disease with heart failure; I25.10 Atherosclerotic heart disease of native coronary artery without angina pectoris; Z79.84 Long term (current) use of oral hypoglycemic drugs; K58.9 Irritable bowel syndrome, unspecified; D69.6 Thrombocytopenia, unspecified; L81.9 Disorder of pigmentation, unspecified; K64.9 Unspecified hemorrhoids
CPT/HCPCS: 36415; 75635-TC; 80048; 80053; 81003; 82272; 82962; 85025; 85610; 86850; 86900; 86901; 87086; 93005; 93010; 93926-TC; 93971-TC; 99285-25

== ENCOUNTER 2019-01-02 05:10 | Inpatient (IN) | payer OTHER ==
[2019-01-02] MEDS: INSULIN (NOVOLOG) ASPART 100 UNITS/ML 10ML VIAL ONE ×2 (12:20→13:20)
[2019-01-02] MEDS ORDERED: HEPARIN NA (PORCINE) 5,000 UNITS/ML 1ML VIAL ONE (13:41)
[2019-01-02] MEDS ORDERED: PAPAVERINE HCL 30 MG/1 ML 10 ML VIAL NR ONE ×3 (13:42→16:33)
--- NOTE | 2019-01-02 13:50 | HP ---
Admitting History and Physical - Admission History of Present Illness: 73 year old woman with DM, HTM, ASCVD developed pain and redness in left foot 2 months ago. Her symptoms have not improved and evaluation revealed severe atherosclerotic disease of the left femoral, popliteal and tibial arteries. SHe has had a right femoral endarterectomy in the past. History Source: Patient - Past Medical History Cardiovascular: Yes: CAD, CHF (Diastolic Dysfunction), HTN, Other (PAD). No: AFIB Pulmonary: Yes: COPD. No: O2 Dependent Gastrointestinal: Yes: Constipation, Diverticulosis, Hemorrhoids, Irritable Bowel Disease, Other (Pancreatic Cysts). 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 History of Recent Travel: No Home Medications - Allergies Allergies/Adverse Reactions: Allergies Allergy/AdvReac Type Severity Reaction Status Date / Time carvedilol [From Coreg] Allergy Verified 01/02/19 11:10 hydralazine Allergy "fever and Verified 01/02/19 11:10 shakes" nebivolol [From Bystolic] Allergy Verified 01/02/19 11:10 hydrochlorothiazide AdvReac Severe Itching Verified 01/02/19 11:10 [From Aldactazide] alprazolam [From Xanax] AdvReac Unknown Verified 01/02/19 11:10 amlodipine besylate AdvReac Rash Verified 01/02/19 11:10 [From Norvasc] cortisone AdvReac "raises Verified 01/02/19 11:10 blood sugar" gabapentin [From Neurontin] AdvReac Swelling Verified 01/02/19 11:10 metoprolol succinate AdvReac Elevated Verified 01/02/19 11:10 [From Toprol XL] Blood Pressure mupirocin AdvReac Rash Verified 01/02/19 11:10 nifedipine [From Procardia] AdvReac Verified 01/02/19 11:10 nitroglycerin AdvReac "severe Verified 01/02/19 11:10 headache" olmesartan medoxomil AdvReac Low Blood Verified 01/02/19 11:10 [From Benicar] Pressure paroxetine HCl [From Paxil] AdvReac Elevated Verified 01/02/19 11:10 Blood Pressure pregabalin [From Lyrica] AdvReac Swelling Verified 01/02/19 11:10 spironolactone AdvReac Swelling Verified 01/02/19 11:10 [From Aldactazide] valsartan [From Diovan] AdvReac Verified 01/02/19 11:10 SE RA PES AdvReac "heart was Uncoded 01/02/19 11:10 bounding" - Home Medications Home Medications: Ambulatory Orders Diazepam [Valium] 5 mg PO PRN PRN 04/24/12 metFORMIN HCL [Glucophage -] 500 mg PO BID 04/24/12 Aspirin 81 mg PO DAILY 07/20/17 Glyburide 5 mg PO BID 07/20/17 Atenolol [Tenormin -] 100 mg PO DAILY 11/12/18 Captopril 100 mg PO TID 11/12/18 Atenolol/Chlorthalidone [Tenoretic 100 Tablet] 1 each PO DAILY 12/30/18 Clopidogrel Bisulfate [Plavix] 75 mg PO DAILY 12/30/18 Multivit-Min/FA/Lycopen/Lutein [Centrum Silver Tablet] 1 each PO DAILY 12/30/18 Family Disease History - Family Disease History Family Disease History: CA: Father (Throat, ), Mother (Colon, ) Physical Examination Vital Signs: Vital Signs Temperature 97.6 F 01/02/19 11:00 Pulse Rate 65 01/02/19 11:00 Respiratory Rate 16 01/02/19 11:00 Blood Pressure 157/79 01/02/19 11:00 O2 Sat by Pulse Oximetry (%) 97 01/02/19 11:05 Constitutional: Yes: No Distress Eyes: Yes: WNL, EOM Intact HENT: Yes: WNL Neck: Yes: Supple Cardiovascular: Yes: Regular Rate and Rhythm Respiratory: Yes: Regular Gastrointestinal: Yes: Soft Extremities: Yes: Other (Left foot cool and discolored) Neurological: Yes: Alert, Oriented Problem List - Problems (1) Ischemia of left lower extremity Assessment/Plan: Severe arterial disease left leg Plan left femorotibial bypass Code(s): I99.8 - OTHER DISORDER OF CIRCULATORY SYSTEM
[2019-01-02] MEDS ORDERED: CEFAZOLIN 2 GM/D5W 2 GM/50 ML ML IVPB ONE (14:00)
[2019-01-02] MEDS ORDERED: PROPOFOL 20 ML ONE (14:01)
[2019-01-02] MEDS ORDERED: MIDAZOLAM HCL 2 MG/2 ML SINGLE DOSE VIAL ONE (14:01)
[2019-01-02] MEDS ORDERED: ROCURONIUM BROMIDE 50 MG/5 ML SYRINGE ONE (14:02)
[2019-01-02] MEDS ORDERED: SUCCINYLCHOLINE CHLORIDE 200 MG/10 ML SYRINGE ONE (14:02)
[2019-01-02] MEDS ORDERED: ceFAZolin SODIUM 1 GM VIAL IVPB ONE (14:30)
[2019-01-02] MEDS ORDERED: DEXAMETHASONE SOD PHOSPHATE 4 MG/1 ML VIAL ONE (14:44)
[2019-01-02] MEDS ORDERED: ceFAZolin SODIUM 1 GM VIAL ONE ×2 (14:44)
[2019-01-02] MEDS ORDERED: GLYCOPYRROLATE 0.2 MG/1 ML VIAL ONE ×3 (17:59)
[2019-01-02] MEDS ORDERED: NEOSTIGMINE METHYLSULFATE 0.5 MG/ML - 10 ML MDV ONE (17:59)
[2019-01-02] MEDS ORDERED: PROTAMINE SULFATE 50 MG/5 ML VIAL ONE (18:05)
[2019-01-02] MEDS ORDERED: POVIDONE-IODINE OINTMENT 10% - 28.4 GM TUBE ONE (18:06)
--- NOTE | 2019-01-02 18:58 | OP ---
Operative Note - Note: Operative Date: 01/02/19 Pre-Operative Diagnosis: Ischemic left foot Operation: Left femoral-posterior tibial bypass with insitu saphenous vein. Left femoral endarterectomy Findings: Calcific atherosclerosis of femoral artery. 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
[2019-01-02] MEDS ORDERED: diazePAM 5 MG TABLET PO PRN (19:01)
[2019-01-02] MEDS ORDERED: ACETAMINOPHEN INJECTION 100 ML IVPB ONE (19:08)
[2019-01-02] MEDS ORDERED: ONDANSETRON 4 MG/2 ML VIAL IVPUSH PRN (19:08)
[2019-01-02] MEDS ORDERED: DOCUSATE SODIUM 100 MG CAPSULE (FP) PO PRN (19:08)
[2019-01-02] MEDS ORDERED: LABETALOL HCL 5 MG/1 ML (100MG/20 ML VIAL) IVPUSH ONE (19:09)
--- NOTE | 2019-01-02 19:09 | SURG ---
Surgery Statistical Consultant Note Statistical Consultant: Lele Pryor PA-C Date of Service: 01/02/19 Diagnosis: Ischemic left foot Procedure: Left femoral-posterior tibial bypass with insitu saphenous vein. Left femoral endarterectomy I was present for the entirety of the operative procedure. For further detail, please refer to operative report. Visit type - Case Type Case Type: Scheduled - New patient This patient is new to me today: Yes Date on this admission: 01/02/19
[2019-01-02] MEDS: ACETAMINOPHEN 1000 MG/100 ML VIAL (NON FORMULARY) IVPB ONE ×2 (19:20→21:09)
[2019-01-02 19:37] LABS: BASO % 0.5 % (0-2.0); EOS % 0.3 % (0-4.5); HEMATOCRIT 38.4 % (32.4-45.2); HEMOGLOBIN 13.7 GM/dL (10.7-15.3); LYMPH % 8.5 % (8-40); MCH 36.3 pg (25.7-33.7); MCHC 35.7 g/dl (32.0-36.0); MEAN CELL VOLUME 101.8 fl (80-96); MEAN PLT VOLUME 7.2 fl (7.5-11.1); MONO % 2.7 % (3.8-10.2); PLATELET COUNT 120 K/MM3 (134-434); RBC 3.77 M/mm3 (3.60-5.2); RDW 13.3 % (11.6-15.6); WHITE BLOOD COUNT 7.3 K/mm3 (4.0-10.0)
[2019-01-02 19:59] LABS: CALCIUM 8.9 mg/dL (8.5-10.1); CREATININE 0.9 mg/dL (0.55-1.3); POTASSIUM 3.1 mmol/L (3.5-5.1)
[2019-01-02] MEDS ORDERED: LACTATED RINGERS SOLUTION 1,000 ML IV SCH (20:45)
[2019-01-02] MEDS ORDERED: POTASSIUM CHLORIDE TABS 20 MEQ TABLET.ER (FP) PO ONE (20:48)
--- NOTE | 2019-01-02 21:10 | CONSULT ---
Consultation: REQUESTING PROVIDER: Dr. Lechuga CONSULT REQUEST: We have been asked to medically evaluate this patient for s/p fem/tib bypass HISTORY OF PRESENT ILLNESS: 73 year old female with a history of diabetes mellitus, hypertension, ASCVD for 2 months, coronary artery disease, congestive heart failure, chronic obstructive pulmonary disease, diverticulosis, hemorrhoids, IBS, and ischemic left foot/atherosclerosis of femoral artery is s/p left femoral-posterior tibial bypass with in situ saphenous vein and left femoral endarterectomy with Dr. Lechuga. EBL 300cc, 2L fluid given, 350cc urine output during surgery. Currently feels well, only complaint of throat congestion. Denies any pain in her L leg, denies numbness tingling or swelling. States that her leg feels warmer than it did prior to the operation. Denies chest pain, shortness of breath, nausea, vomiting, diarrhea, fevers, chills. Allergies: see patient summary for full list of allergies PSH: tonsillectomy, ovarian cystectomy Smoking: never Alcohol use: none Family Hx: colon cancer in mother and throat cancer in father REVIEW OF SYSTEMS: CONSTITUTIONAL: Absent: fever, chills, diaphoresis, generalized weakness, malaise, loss of appetite, weight change HEENT: Absent: rhinorrhea, nasal congestion, throat pain, throat swelling, difficulty swallowing, mouth swelling, ear pain, eye pain, visual changes CARDIOVASCULAR: Absent: chest pain, syncope, palpitations, irregular heart rate, lightheadedness , peripheral edema RESPIRATORY: Absent: cough, shortness of breath, dyspnea with exertion, orthopnea, wheezing, stridor, hemoptysis GASTROINTESTINAL: Absent: abdominal pain, abdominal distension, nausea, vomiting, diarrhea, constipation, melena, hematochezia GENITOURINARY: Absent: dysuria, frequency, urgency, hesitancy, hematuria, flank pain, genital pain MUSCULOSKELETAL: Absent: myalgia, arthralgia, joint swelling, back pain, neck pain SKIN: Absent: rash, itching, pallor HEMATOLOGIC/IMMUNOLOGIC: Absent: easy bleeding, easy bruising, lymphadenopathy, frequent infections ENDOCRINE: Absent: unexplained weight gain, unexplained weight loss, heat intolerance, cold intolerance NEUROLOGIC: Absent: headache, focal weakness or paresthesias, dizziness, unsteady gait, seizure, mental status changes, bladder or bowel incontinence PSYCHIATRIC: Absent: anxiety, depression, suicidal or homicidal ideation, hallucinations. PHYSICAL EXAMINATION Vital Signs - 24 hr 01/02/19 01/02/19 01/02/19 11:00 11:05 18:54 Temperature 97.6 F 99.3 F Pulse Rate 65 74 Respiratory 16 14 Rate Blood Pressure 157/79 181/87 H O2 Sat by Pulse 97 100 Oximetry (%) 01/02/19 01/02/19 01/02/19 19:05 19:20 19:35 Temperature Pulse Rate 70 83 80 Respiratory 14 14 14 Rate Blood Pressure 173/71 H 148/64 146/62 O2 Sat by Pulse 100 100 100 Oximetry (%) 01/02/19 01/02/19 01/02/19 19:50 20:05 20:20 Temperature Pulse Rate 72 76 72 Respiratory 14 14 14 Rate Blood Pressure 150/55 L 132/53 L 131/61 O2 Sat by Pulse 100 100 100 Oximetry (%) GENERAL: A&Ox3, no acute distress EYES: PERRLA, EOMI ENT: Dry mucus membranes NECK: No JVD LUNGS: CTA, no wheezes HEART: RRR, no murmurs ABDOMEN: Soft, nontender, BS present EXTREMITIES: L sided bandages from endarterectomy and fem/tib bypass present on medial aspect of L leg, dry and not stained. strong PT and DP pulses were dopplerable and palpated. NEUROLOGICAL: Cranial nerves II-XII intact. No focal neurologic deficits. Sensation intact bilaterally in upper and lower extremities Laboratory Results - last 24 hr 01/02/19 01/02/19 01/02/19 10:24 11:23 12:55 WBC RBC Hgb Hct MCV MCH MCHC RDW Plt Count MPV Absolute Neuts (auto) Neutrophils % Lymphocytes % Monocytes % Eosinophils % Basophils % Nucleated RBC % Sodium Potassium Chloride Carbon Dioxide Anion Gap BUN Creatinine Est GFR (CKD-EPI)AfAm Est GFR (CKD-EPI)NonAf POC Glucometer 359 345 Random Glucose Calcium Blood Type O POSITIVE Antibody Screen Negative Crossmatch See Detail 01/02/19 01/02/19 01/02/19 13:50 19:11 19:15 WBC 7.3 RBC 3.77 Hgb 13.7 Hct 38.4 MCV 101.8 H MCH 36.3 H MCHC 35.7 RDW 13.3 Plt Count 120 L MPV 7.2 L Absolute Neuts (auto) 6.4 Neutrophils % 88.0 H D Lymphocytes % 8.5 D Monocytes % 2.7 L Eosinophils % 0.3 D Basophils % 0.5 Nucleated RBC % 0 Sodium Potassium Chloride Carbon Dioxide Anion Gap BUN Creatinine Est GFR (CKD-EPI)AfAm Est GFR (CKD-EPI)NonAf POC Glucometer 279 268 Random Glucose Calcium Blood Type Antibody Screen Crossmatch 01/02/19 19:15 WBC RBC Hgb Hct MCV MCH MCHC RDW Plt Count MPV Absolute Neuts (auto) Neutrophils % Lymphocytes % Monocytes % Eosinophils % Basophils % Nucleated RBC % Sodium 136 Potassium 3.1 L Chloride 95 L Carbon Dioxide 32 Anion Gap 9 BUN 20.0 H Creatinine 0.9 Est GFR (CKD-EPI)AfAm 73.52 Est GFR (CKD-EPI)NonAf 63.43 POC Glucometer Random Glucose 255 H Calcium 8.9 Blood Type Antibody Screen Crossmatch Active Medications Generic Name Dose Route Start Last Admin Trade Name Freq PRN Reason Stop Dose Admin Atenolol 100 mg 01/03/19 10:00 Tenormin - PO DAILY [facility] Chlorthalidone 25 mg 01/03/19 10:00 [place]gro[place] - PO DAILY SHANNON Diazepam 5 mg 01/02/19 19:01 Valium - PO PRN PRN ANXIETY Docusate Sodium 100 mg 01/02/19 19:08 Colace - PO BID PRN CONSTIPATION Fentanyl 50 mcg 01/02/19 19:08 01/02/19 19:20 Sublimaze Injection - IVPUSH 50 mcg Q5M PRN Administration PAIN-PACU ORDER X 4 DOSES ONLY Glyburide 5 mg 01/03/19 07:00 Diabeta - PO BIDAC [facility] Cefazolin Sodium 1 gm/ 50 mls @ 100 mls/hr 01/03/19 02:00 Dextrose IVPB 01/03/19 10:29 Q8HIV SHANNON Lactated Ringer's 1,000 mls @ 100 mls/hr 01/02/19 20:45 Lactated Ringers Solution IV ASDIR [facility] Potassium Chloride 10 meq/ 1,005 mls @ 125 mls/hr 01/02/19 21:00 Sodium Chloride IVPB ASDIR [facility] Lisinopril 40 mg 01/03/19 10:00 Prinivil PO DAILY [facility] Metformin HCl 500 mg 01/02/19 22:00 Glucophage - PO BID [facility] Morphine Sulfate 2 mg 01/02/19 19:06 Morphine Sulfate IVPUSH Q4H PRN PAIN LEVEL 1-5 Ondansetron HCl 4 mg 01/02/19 19:08 Zofran Injection IVPUSH Q6H PRN NAUSEA AND/OR VOMITING ASSESSMENT/PLAN: 73 year old female with a history of diabetes mellitus, hypertension, ASCVD for 2 months, coronary artery disease, congestive heart failure, chronic obstructive pulmonary disease, diverticulosis, hemorrhoids, IBS, and ischemic left foot/atherosclerosis of femoral artery is s/p left femoral-posterior tibial bypass with in situ saphenous vein and left femoral endarterectomy with Dr. Lechuga. #Ischemic L Foot #DM #HTN #PVD #CAD #CHF #COPD Neurological -no acute neurologic deficits -monitor sensation and motor strength of L leg Cardiovascular -patient is s/p L foot femoral-posterior tibial bypass with Dr. lechuga -good PT and DP pulses palpated and dopplered -continue pain management with tylenol and morphine 2Q4 -LR @ 100cchr -zofran for nausea -can D/C palaicos in AM -resume HTN meds in AM -will discuss asa/plavix with vascular in AM Pulmonary -on nasal cannula, saturating 100% -COPD at baseline, can give duonebs/steroids if patient starts to become short of breath/wheeze Gastrointestinal -NPO for now, no GI complaints Renal -hypokalemia, will replete and recheck BMP in AM Endocrine -DM, treat per home medications FEN -LR @ 100cc/hr -diet in AM per surgery -replete potassium and recheck BMP in Am Prophylaxis -SCDs Disposition -ICU monitoring, likely downgrade within 24 hours Visit type - Emergency Visit Emergency Visit: No - New Patient This patient is new to me today: No - Critical Care Critical Care patient: Yes Total Critical Care Time (in minutes): 40 Critical Care Statement: The care of this patient involved high complexity decision making to prevent further life threatening deterioration of the patient 's condition and/or to evaluate & treat vital organ system(s) failure or risk of failure. ATTENDING PHYSICIAN STATEMENT I saw and evaluated the patient. I reviewed the resident's note and discussed the case with the resident. I agree with the resident's findings and plan as documented. SUBJECTIVE: OBJECTIVE: ASSESSMENT AND PLAN:
[2019-01-02] MEDS ORDERED: KCL 10 MEQ IVPB 10 MEQ/100 ML INFUS.BAG IVPB SCH ×2 (21:45→22:15)
[2019-01-02] MEDS ORDERED: metFORMIN HCL 500 MG TABLET (FP) PO SCH (22:00)
[2019-01-02] MEDS: INSULIN SLIDING SCALE (NOVOLOG) 1 VIAL SQ SCH (22:25)
[2019-01-02] MEDS: MORPHINE SULFATE 2 MG/ML VIAL IVPUSH PRN (22:40)
[2019-01-02] MEDS: POTASSIUM CHLORIDE 10 MEQ in SODIUM CHLORIDE 1,000 ML IVPB SCH (22:52)
[2019-01-03] MEDS ORDERED: ceFAZolin SODIUM 1 GM VIAL ONE ×2 (00:40→08:22)
[2019-01-03] MEDS ORDERED: DEXTROSE 5%-WATER - 50 ML IVPB ONE ×2 (00:40→08:22)
[2019-01-03] MEDS: CEFAZOLIN 1 GM in DEXTROSE 5%-WATER - 50 ML IVPB SCH ×2 (01:12→09:31)
[2019-01-03] MEDS: MORPHINE SULFATE 2 MG/ML VIAL IVPUSH PRN ×2 (03:29→08:10)
[2019-01-03] MEDS: INSULIN SLIDING SCALE (NOVOLOG) 1 VIAL SQ SCH ×5 (04:39→21:53)
[2019-01-03 06:27] LABS: BASO % 0.1 % (0-2.0); EOS % 0.2 % (0-4.5); LYMPH % 11.9 % (8-40); MCH 36.7 pg (25.7-33.7); MCHC 35.6 g/dl (32.0-36.0); MEAN CELL VOLUME 103.1 fl (80-96); MEAN PLT VOLUME 7.4 fl (7.5-11.1); NEUT % 79.8 % (42.8-82.8); PLATELET COUNT 125 K/MM3 (134-434); RBC 2.72 M/mm3 (3.60-5.2); RDW 13.5 % (11.6-15.6); WHITE BLOOD COUNT 6.6 K/mm3 (4.0-10.0)
[2019-01-03] MEDS ORDERED: glyBURIDE 5 MG TABLET (UD) PO SCH (07:00)
[2019-01-03 07:04] LABS: BLOOD UREA NITROGEN 14.3 mg/dL (7-18); CALCIUM 8.6 mg/dL (8.5-10.1); CREATININE 0.8 mg/dL (0.55-1.3); MAGNESIUM 1.4 mg/dL (1.8-2.4); PHOSPHOROUS 3.3 mg/dL (2.5-4.9); POTASSIUM 4.7 mmol/L (3.5-5.1)
[2019-01-03] MEDS ORDERED: MAGNESIUM OXIDE 400 MG TABLET (FP) PO ONE (07:15)
[2019-01-03] MEDS: POTASSIUM CHLORIDE 10 MEQ in SODIUM CHLORIDE 1,000 ML IVPB SCH (08:14)
--- NOTE | 2019-01-03 08:43 | PN ---
Progress Note (short form) - Note Progress Note: POD 1 Anxious, complaining of pain Left leg dressing clean and dry Foot warm, palpable PT pulse Hgb 10 Stable Bed rest Restart ASA and Plavix Leave palacios (patient request). Problem List - Problems (1) Ischemia of left lower extremity Code(s): I99.8 - OTHER DISORDER OF CIRCULATORY SYSTEM
[2019-01-03] MEDS ORDERED: oxyCODONE HCL 5 MG TABLET PO PRN (09:23)
[2019-01-03] MEDS ORDERED: RANITIDINE HCL 150 MG TABLET (FP) PO ONE (09:29)
[2019-01-03] MEDS ORDERED: PT OWN MED DRAWER 7, Y5N ONE ×3 (09:35→21:48)
[2019-01-03] MEDS: ASPIRIN 81 MG CHEWABLE TABLETS PO SCH (09:39)
[2019-01-03] MEDS: CLOPIDOGREL BISULFATE 75 MG TABLET (FP) PO SCH (09:39)
[2019-01-03] MEDS: ATENOLOL 50 MG TABLET (FP) PO SCH (09:39)
[2019-01-03] MEDS: CHLORTHALIDONE 25 MG TABLET PO SCH (09:39)
[2019-01-03] MEDS: LISINOPRIL 20 MG TABLET (FP) PO SCH ×2 (09:39→09:43)
[2019-01-03] MEDS ORDERED: CHLORTHALIDONE PO SCH (10:00)
[2019-01-03] MEDS ORDERED: ATENOLOL PO SCH (10:00)
[2019-01-03] MEDS ORDERED: [UNRECOGNIZED DRUG - OTHER] PO SCH (10:00)
--- NOTE | 2019-01-03 10:10 | OP ---
DATE OF OPERATION: 01/02/2019 SURGEON: Ishmael Luu MD CREATIVE SERVICES MANAGER: MELVI Cavazos PROCEDURE: Left femoral posterior tibial artery bypass with in situ saphenous vein. Left femoral endarterectomy. PREOPERATIVE DIAGNOSIS: Ischemic left foot. POSTOPERATIVE DIAGNOSIS: Ischemic left foot. ANESTHESIA: General. ANESTHESIOLOGIST: GAEL Reid OPERATIVE FINDINGS: There was severe calcific atherosclerosis of the common femoral, deep and superficial femoral arteries. The distal posterior tibial artery was patent a diameter of approximately 2 mm. The long saphenous vein was patent with a diameter of approximately 2 to 3 mm. OPERATIVE PROCEDURE: Following routine patient identification with site and side verification, general anesthesia was induced. A Aguilera catheter was placed. The left leg and groin were prepped with ChloraPrep. Timeout was performed. An incision was made over the distal greater saphenous vein proximal to the ankle. The vein was exposed. The side branches were ligated and divided. The vein was ligated distally and incised. It was cannulated with an Angiocath and distension was heparin papaverine solution performed. The vein was small caliber, patent and appeared to be of adequate quality for bypass. The vein was then exposed by extension of the incision to the groin. All side branches of the vein were ligated and eventually divided. The proximal end of the vein was dissected down to the saphenofemoral junction. The vein was covered with moist gauze throughout the procedure. The common femoral artery was then exposed through the groin incision using cautery. The artery was mobilized at the inguinal ligament, which was incised to gain access to the distal external iliac artery, which was without significant plaque. All side branches were mobilized and secured with vessel loops. The deep and superficial femoral branches were individually secured. The calf wound was deepened to the muscle fascia into the posterior compartment. The posterior tibial artery was mobilized and secured with vessel loops. A weak Doppler signal was heard in the vessel. Side branches of this segment were ligated and divided. Patient was systemically heparinized. The vein was amputated at the saphenofemoral junction and the stump suture ligated with 2-0 silk. The vein was then completely mobilized from its bed and removed. It was placed in heparin saline solution until needed. The common femoral artery was occluded with the vascular clamp and the branches occluded with the vessel loops. An arteriotomy was made from the origin of the superficial femoral artery proximally. Endarterectomy of the common femoral artery was performed to remove the plaque. Inflow was adequate. Plaque from the superficial femoral and deep femoral origins were also removed and there was good arterial back bleeding from both. The vein was then brought up in the non-reverse configuration and the proximal end spatulated. Terminal valve was removed. The vein was anastomosed to the side of the artery with a running suture of 6-0 Prolene. The artery was allowed to back bleed and flush before completion of the anastomosis. Surgicel was used to control any bleeding from the suture line. The vein graft filled to the first competent valve. A modified Toledo valvulotome was then inserted to the distal end of the vein all the way to the anastomosis. It was withdrawn with lysis of all competent valve. There was good flow to the graft, which was allowed to untwist and was marked to prevent twisting. The graft was laid back into its bed and the leg straightened. The posterior tibial artery was occluded with the Yasargil clips and opened on its exposed surface with a 1 cm arteriotomy. The end of the vein was spatulated and anastomosed to the side of the artery with running suture of 7-0 Prolene. Prior to completion of the suture line, the artery was allowed to back bleed and flush and the vein was flushed. The suture line was completed and all vessels loops were released. There was good flow of the anastomosis with return with a palpable posterior tibial pulse at the ankle. Wounds were irrigated and closed with interrupted and running suture of 3-0 Vicryl in the subcutaneous tissues and jefferson on the skin. Sterile dressing was applied and the patient was taken to the recovery room in stable condition. Mary Ellen [id number]
[2019-01-03] MEDS: oxyCODONE HCL 5 MG TABLET PO PRN ×3 (10:52→21:54)
[2019-01-03] MEDS ORDERED: PANTOPRAZOLE 40 MG TABLET (FP) PO ONE ×2 (11:04→15:45)
--- NOTE | 2019-01-03 11:16 | PN ---
Teaching Attending Note Name of Resident: Vargas Light ATTENDING PHYSICIAN STATEMENT I saw and evaluated the patient. I reviewed the resident's note and discussed the case with the resident. I agree with the resident's findings and plan as documented. SUBJECTIVE: Patient seen and examined in the ICU. Awake and alert. Minimal discomfort of the LLE. No CP or SOB. No acute events overnight. Intake & Output 12/31/18 01/01/19 01/02/19 01/03/19 23:59 23:59 23:59 23:59 Intake Total 2545 1379 Output Total 750 900 Balance 1795 479 Weight 149 lb 7 oz Last Vital Signs Temp Pulse Resp BP Pulse Ox 98.2 F 83 20 141/49 L 100 01/03/19 09:58 01/03/19 09:58 01/03/19 09:58 01/03/19 09:58 01/03/19 08:00 Active Medications Aspirin (Asa -) 81 mg PO DAILY [facility] Last Admin: 01/03/19 09:39 Dose: 81 mg Atenolol (Tenormin -) 100 mg PO DAILY [facility] Last Admin: 01/03/19 09:39 Dose: 100 mg Chlorthalidone (Hygroton -) 25 mg PO DAILY [facility] Last Admin: 01/03/19 09:39 Dose: 25 mg Clopidogrel Bisulfate (Plavix -) 75 mg PO DAILY [facility] Last Admin: 01/03/19 09:39 Dose: 75 mg Diazepam (Valium -) 5 mg PO PRN PRN PRN Reason: ANXIETY Docusate Sodium (Colace -) 100 mg PO BID PRN PRN Reason: CONSTIPATION Insulin Aspart (Novolog Vial Sliding Scale -) 1 vial SQ Q6H [facility]; Protocol Last Admin: 01/03/19 04:39 Dose: 6 units Lisinopril (Prinivil) 40 mg PO DAILY [facility] Last Admin: 01/03/19 09:43 Dose: Not Given Morphine Sulfate (Morphine Sulfate) 2 mg IVPUSH Q4H PRN PRN Reason: PAIN LEVEL 1-5 Last Admin: 01/03/19 08:10 Dose: 2 mg Ondansetron HCl (Zofran Injection) 4 mg IVPUSH Q6H PRN PRN Reason: NAUSEA AND/OR VOMITING Oxycodone HCl (Roxicodone -) 5 mg PO Q6H PRN PRN Reason: PAIN LEVEL 1-5 Oxycodone HCl (Roxicodone -) 10 mg PO Q6H PRN PRN Reason: PAIN LEVEL 6-10 Last Admin: 01/03/19 10:52 Dose: 10 mg Pantoprazole Sodium (Protonix -) 40 mg PO ONCE ONE Stop: 01/03/19 11:05 Pantoprazole Sodium (Protonix -) 40 mg PO DAILY [facility] GENERAL: A&Ox3, no acute distress EYES: PERRLA, EOMI ENT: Dry mucus membranes NECK: No JVD LUNGS: CTA, no wheezes HEART: RRR, no murmurs ABDOMEN: Soft, nontender, BS present EXTREMITIES: LLE bandages from endarterectomy and fem/tib bypass present on medial aspect of L leg, dry and not stained. strong PT and DP pulses were dopplerable and palpated. NEUROLOGICAL: Non-focal Laboratory Results - last 24 hr 01/02/19 01/02/19 01/02/19 10:24 11:23 12:55 WBC RBC Hgb Hct MCV MCH MCHC RDW Plt Count MPV Absolute Neuts (auto) Neutrophils % Lymphocytes % Monocytes % Eosinophils % Basophils % Nucleated RBC % Sodium Potassium Chloride Carbon Dioxide Anion Gap BUN Creatinine Est GFR (CKD-EPI)AfAm Est GFR (CKD-EPI)NonAf POC Glucometer 359 345 Random Glucose Calcium Phosphorus Magnesium Blood Type O POSITIVE Antibody Screen Negative Crossmatch See Detail 01/02/19 01/02/19 01/02/19 13:50 19:11 19:15 WBC 7.3 RBC 3.77 Hgb 13.7 Hct 38.4 MCV 101.8 H MCH 36.3 H MCHC 35.7 RDW 13.3 Plt Count 120 L MPV 7.2 L Absolute Neuts (auto) 6.4 Neutrophils % 88.0 H D Lymphocytes % 8.5 D Monocytes % 2.7 L Eosinophils % 0.3 D Basophils % 0.5 Nucleated RBC % 0 Sodium Potassium Chloride Carbon Dioxide Anion Gap BUN Creatinine Est GFR (CKD-EPI)AfAm Est GFR (CKD-EPI)NonAf POC Glucometer 279 268 Random Glucose Calcium Phosphorus Magnesium Blood Type Antibody Screen Crossmatch 01/02/19 01/02/19 01/03/19 19:15 22:15 04:36 WBC RBC Hgb Hct MCV MCH MCHC RDW Plt Count MPV Absolute Neuts (auto) Neutrophils % Lymphocytes % Monocytes % Eosinophils % Basophils % Nucleated RBC % Sodium 136 Potassium 3.1 L Chloride 95 L Carbon Dioxide 32 Anion Gap 9 BUN 20.0 H Creatinine 0.9 Est GFR (CKD-EPI)AfAm 73.52 Est GFR (CKD-EPI)NonAf 63.43 POC Glucometer 294 254 Random Glucose 255 H Calcium 8.9 Phosphorus Magnesium Blood Type Antibody Screen Crossmatch 01/03/19 01/03/19 05:15 05:15 WBC 6.6 RBC 2.72 L Hgb 10.0 L Hct 28.0 L D MCV 103.1 H MCH 36.7 H MCHC 35.6 RDW 13.5 Plt Count 125 L MPV 7.4 L Absolute Neuts (auto) 5.2 Neutrophils % 79.8 Lymphocytes % 11.9 D Monocytes % 8.0 D Eosinophils % 0.2 Basophils % 0.1 Nucleated RBC % 0 Sodium 138 Potassium 4.7 Chloride 100 Carbon Dioxide 32 Anion Gap 5 L BUN 14.3 Creatinine 0.8 Est GFR (CKD-EPI)AfAm 84.77 Est GFR (CKD-EPI)NonAf 73.14 POC Glucometer Random Glucose 247 H Calcium 8.6 Phosphorus 3.3 Magnesium 1.4 L Blood Type Antibody Screen Crossmatch ASSESSMENT/PLAN: POD #1: Left femoral-posterior tibial bypass with in situ saphenous vein and left femoral endarterectomy Diverticulosis Hemorrhoids IBS Ischemic Left Foot DM HTN PVD CAD CHF COPD Restart home meds O2 as needed DC palacios catheter VTE prophylaxis ASA Plavix Incentive Spirometry Local wound care per surgery Floor Dr Rehman
[2019-01-03] MEDS ORDERED: diazePAM 5 MG TABLET PO PRN (11:22)
--- NOTE | 2019-01-03 11:43 | PN ---
Progress Note (short form) - Note Progress Note: Anesthesia postop note 73 y/o F s/p GA for left fem-tibial bypass POD#1, aaox3, very elevated BP, patient reports some abdominal discomfort. No anesthesia complications.
--- NOTE | 2019-01-03 11:46 | PN ---
Physical Exam: SUBJECTIVE: Patient seen and examined at the bedside. Patient states she has less pain in the foot but is drying machine tender on occasion. Denies cp, sob, abd pain , n/v, numbness, tingling, fever, chills. Has complaints of pressure due to acid reflux and gas that is chronic. 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 OBJECTIVE: Vital Signs Period Temp Pulse Resp BP Sys/Dacosta Pulse Ox Last 24 Hr 97.8 F-99.3 F 61-84 10-22 110-181/40-87 100-100 GENERAL: A&Ox3, no acute distress EYES: PERRLA, EOMI ENT: Dry mucus membranes NECK: No JVD LUNGS: CTA, no wheezes, no accessory muscle movement HEART: RRR, no murmurs ABDOMEN: Soft, nontender, BS present EXTREMITIES: L sided bandages from endarterectomy and fem/tib bypass present on medial aspect of L leg, dry and not stained. strong PT and DP pulses were dopplerable and palpated. Erythematous left foot with distal regions with signs of ischemia, improved as compared with admission. NEUROLOGICAL: Cranial nerves II-XII intact. No focal neurologic deficits. Sensation intact bilaterally in upper and lower extremities Laboratory Results - last 24 hr 01/02/19 01/02/19 01/02/19 10:24 12:55 13:50 WBC RBC Hgb Hct MCV MCH MCHC RDW Plt Count MPV Absolute Neuts (auto) Neutrophils % Lymphocytes % Monocytes % Eosinophils % Basophils % Nucleated RBC % Sodium Potassium Chloride Carbon Dioxide Anion Gap BUN Creatinine Est GFR (CKD-EPI)AfAm Est GFR (CKD-EPI)NonAf POC Glucometer 345 279 Random Glucose Calcium Phosphorus Magnesium Blood Type O POSITIVE Antibody Screen Negative Crossmatch See Detail 01/02/19 01/02/19 01/02/19 19:11 19:15 19:15 WBC 7.3 RBC 3.77 Hgb 13.7 Hct 38.4 MCV 101.8 H MCH 36.3 H MCHC 35.7 RDW 13.3 Plt Count 120 L MPV 7.2 L Absolute Neuts (auto) 6.4 Neutrophils % 88.0 H D Lymphocytes % 8.5 D Monocytes % 2.7 L Eosinophils % 0.3 D Basophils % 0.5 Nucleated RBC % 0 Sodium 136 Potassium 3.1 L Chloride 95 L Carbon Dioxide 32 Anion Gap 9 BUN 20.0 H Creatinine 0.9 Est GFR (CKD-EPI)AfAm 73.52 Est GFR (CKD-EPI)NonAf 63.43 POC Glucometer 268 Random Glucose 255 H Calcium 8.9 Phosphorus Magnesium Blood Type Antibody Screen Crossmatch 01/02/19 01/03/19 01/03/19 22:15 04:36 05:15 WBC 6.6 RBC 2.72 L Hgb 10.0 L Hct 28.0 L D MCV 103.1 H MCH 36.7 H MCHC 35.6 RDW 13.5 Plt Count 125 L MPV 7.4 L Absolute Neuts (auto) 5.2 Neutrophils % 79.8 Lymphocytes % 11.9 D Monocytes % 8.0 D Eosinophils % 0.2 Basophils % 0.1 Nucleated RBC % 0 Sodium Potassium Chloride Carbon Dioxide Anion Gap BUN Creatinine Est GFR (CKD-EPI)AfAm Est GFR (CKD-EPI)NonAf POC Glucometer 294 254 Random Glucose Calcium Phosphorus Magnesium Blood Type Antibody Screen Crossmatch 01/03/19 05:15 WBC RBC Hgb Hct MCV MCH MCHC RDW Plt Count MPV Absolute Neuts (auto) Neutrophils % Lymphocytes % Monocytes % Eosinophils % Basophils % Nucleated RBC % Sodium 138 Potassium 4.7 Chloride 100 Carbon Dioxide 32 Anion Gap 5 L BUN 14.3 Creatinine 0.8 Est GFR (CKD-EPI)AfAm 84.77 Est GFR (CKD-EPI)NonAf 73.14 POC Glucometer Random Glucose 247 H Calcium 8.6 Phosphorus 3.3 Magnesium 1.4 L Blood Type Antibody Screen Crossmatch Active Medications Generic Name Dose Route Start Last Admin Trade Name Freq PRN Reason Stop Dose Admin Aspirin 81 mg 01/03/19 10:00 01/03/19 09:39 Asa - PO 81 mg DAILY [facility] Administration Atenolol 100 mg 01/03/19 10:00 01/03/19 09:39 Tenormin - PO 100 mg DAILY [facility] Administration Chlorthalidone 25 mg 01/03/19 10:00 01/03/19 09:39 Hygroton - PO 25 mg DAILY [facility] Administration Clopidogrel Bisulfate 75 mg 01/03/19 10:00 01/03/19 09:39 Plavix - PO 75 mg DAILY [facility] Administration Diazepam 5 mg 01/03/19 11:22 Valium - PO BID PRN ANXIETY Docusate Sodium 100 mg 01/02/19 19:08 Colace - PO BID PRN CONSTIPATION Insulin Aspart 1 vial 01/02/19 22:30 01/03/19 04:39 Novolog Vial Sliding Scale - SQ 6 units Q6H [facility] Administration Protocol Lisinopril 40 mg 01/03/19 10:00 01/03/19 09:43 Prinivil PO Not Given DAILY [facility] Morphine Sulfate 2 mg 01/02/19 19:06 01/03/19 08:10 Morphine Sulfate IVPUSH 2 mg Q4H PRN Administration PAIN LEVEL 1-5 Patient's Own 1 each 01/03/19 14:00 Medication (Non- PO Formulary)Captopril TID [facility] 100 Mg Tab Ondansetron HCl 4 mg 01/02/19 19:08 Zofran Injection IVPUSH Q6H PRN NAUSEA AND/OR VOMITING Oxycodone HCl 5 mg 01/03/19 09:23 Roxicodone - PO Q6H PRN PAIN LEVEL 1-5 Oxycodone HCl 10 mg 01/03/19 09:23 01/03/19 10:52 Roxicodone - PO 10 mg Q6H PRN Administration PAIN LEVEL 6-10 Pantoprazole Sodium 40 mg 01/04/19 10:00 Protonix - PO DAILY [facility] ASSESSMENT/PLAN: Jasmin Otto is a 73 year old female with a history of diabetes mellitus, hypertension, ASCVD for 2 months, coronary artery disease, congestive heart failure, chronic obstructive pulmonary disease, diverticulosis, hemorrhoids, IBS , and ischemic left foot/atherosclerosis of femoral artery is s/p left femoral- posterior tibial bypass with in situ saphenous vein and left femoral endarterectomy with Dr. Luu. Ischemic L Foot s/p femoral-posterior bypass. DM HTN PVD CAD CHF COPD Neurological -no acute neurologic deficits -continue to monitor sensation and motor strength of L leg Cardiovascular -patient is s/p L foot femoral-posterior tibial bypass with Dr. luu -good PT and DP pulses palpated and dopplerable -continue pain management with tylenol and morphine 2Q4 -zofran for nausea -palacios cath in, maintain for 24 more hours -home captopril 100mg tid -home chlorthalidone -aspirin and plavix restarted Pulmonary -on nasal cannula, saturating 100% -COPD at baseline, can give duonebs/steroids if patient starts to become short of breath/wheeze -incentive spirometer Gastrointestinal -zantac 150mg once -protonix 40mg daily Renal -no acute complaints -palacios in, maintain for 24 more hours Endocrine -BGM ACHS -ISS Psych -valium 5mg bid prn for anxiety FEN -no standing fluids -continue to monitor electrolytes and replete as necessary -sodium controlled/diabetic diet Prophylaxis -SCDs Disposition -stable for transfer to Med-surg CASE DISCUSSED WITH DR JESS BARBOSA DO -PGY-1 Visit type - Emergency Visit Emergency Visit: No - New Patient This patient is new to me today: Yes Date on this admission: 01/03/19 - Critical Care Critical Care patient: No
[2019-01-03] MEDS: CAPTOPRIL 100 MG PO SCH ×2 (12:25→21:53)
[2019-01-03] MEDS ORDERED: PANTOPRAZOLE 40 MG TABLET (FP) PO SCH (22:00)
[2019-01-04] MEDS ORDERED: ACETAMINOPHEN 325 MG TABLET (FP) PO PRN ×2 (02:51→19:49)
[2019-01-04] MEDS: CAPTOPRIL 100 MG PO SCH ×2 (06:18→14:52)
[2019-01-04] MEDS: INSULIN SLIDING SCALE (NOVOLOG) 1 VIAL SQ SCH ×4 (06:18→22:15)
[2019-01-04] MEDS ORDERED: PT OWN MED DRAWER 7, Y5N ONE ×6 (06:35→21:36)
[2019-01-04 06:52] LABS: BLOOD UREA NITROGEN 13.2 mg/dL (7-18); CALCIUM 8.6 mg/dL (8.5-10.1); CREATININE 0.8 mg/dL (0.55-1.3); MAGNESIUM 1.5 mg/dL (1.8-2.4); PHOSPHOROUS 3.1 mg/dL (2.5-4.9)
[2019-01-04 06:53] LABS: BASO % 0.4 % (0-2.0); EOS % 2.4 % (0-4.5); HEMATOCRIT 26.2 % (32.4-45.2); HEMOGLOBIN 9.5 GM/dL (10.7-15.3); LYMPH % 24.5 % (8-40); MCH 37.2 pg (25.7-33.7); MCHC 36.1 g/dl (32.0-36.0); MEAN CELL VOLUME 102.9 fl (80-96); MEAN PLT VOLUME 7.2 fl (7.5-11.1); NEUT % 60.7 % (42.8-82.8); PLATELET COUNT 108 K/MM3 (134-434); RBC 2.55 M/mm3 (3.60-5.2); RDW 13.4 % (11.6-15.6)
[2019-01-04] MEDS ORDERED: MAGNESIUM OXIDE 400 MG TABLET (FP) PO ONE (07:15)
--- NOTE | 2019-01-04 08:08 | PN ---
Progress Note (short form) - Note Progress Note: POD #2 s/p Left femoral-posterior tibial bypass with insitu saphenous vein. Left femoral endarterectomy Archana cute events over past 24hrs per RN notes. Patient is alert. C/o incisional tenderness. Adequate pain management with medications ordered. States her left foot feels much better compared to before surgery (less rest pain). Hasn't been OOB yet. Palacios remained in yesterday at patient's request but is aware that it will be removed this morning. Tolerating PO diet. Denies n/v/f/c, CP, SOB or ARAGON. Last Vital Signs Temp Pulse Resp BP Pulse Ox 98.7 F 67 16 123/39 L 95 01/04/ 06:00 01/04/19 06:00 01/04/19 06:00 01/04/19 06:00 01/03/19 21:02 BMP 01/04/19 06:00 H/H TREND 01/02/01/03/19 01/04/19 19:15 05:15 06:00 Hgb 13.7 10.0 L 9.5 L Hct 38.4 28.0 L D 26.2 L Gen: nad ABD: soft. nt. nd. LLE: incision from groin --> just proximal of medial malleolus clean/dry intact w/ jefferson. No signs of infection. No palpable hematoma. No oozing. Palapble PT. Foot is warm. No edema/swelling : palacios to gravity (clear) Problem List - Problems (1) Type 2 diabetes mellitus Assessment/Plan: POD #2 s/p Left femoral-posterior tibial bypass with insitu saphenous vein. Left femoral endarterectomy Downgrade to floor OOB w/ PT DC palacios and begin trial of void Cont to trend H/H Pain management Tight glycemic control Cont ASA and Plavix Above plan discussed with Dr. Luu and agrees Code(s): E11.9 - TYPE 2 DIABETES MELLITUS WITHOUT COMPLICATIONS Qualifiers: Diabetes mellitus assisted insulin use: without assisted use Diabetes mellitus complication status: without complication Qualified Code(s): E11.9 - Type 2 diabetes mellitus without complications (2) Ischemia of left lower extremity Code(s): I99.8 - OTHER DISORDER OF CIRCULATORY SYSTEM
[2019-01-04] MEDS: ATENOLOL 50 MG TABLET (FP) PO SCH (09:40)
[2019-01-04] MEDS: oxyCODONE HCL 5 MG TABLET PO PRN (09:41)
[2019-01-04] MEDS: CLOPIDOGREL BISULFATE 75 MG TABLET (FP) PO SCH (09:43)
[2019-01-04] MEDS: ASPIRIN 81 MG CHEWABLE TABLETS PO SCH (09:43)
[2019-01-04] MEDS ORDERED: PANTOPRAZOLE 40 MG TABLET (FP) PO SCH (10:00)
[2019-01-04] MEDS: CHLORTHALIDONE 25 MG TABLET PO SCH (11:37)
--- NOTE | 2019-01-04 11:43 | PN ---
Physical Exam: SUBJECTIVE: Patient seen and examined at the bedside. States she feels better than yesterday, continue to have pain at the surgical site which is decreased. Denies cp, sob, abd pain, n/v, fever, chills, numbness, tingling, weakness. OBJECTIVE: Vital Signs Period Temp Pulse Resp BP Sys/Dacosta Pulse Ox Last 24 Hr 98 F-100.3 F 65-78 14-22 109-157/38-76 95-96 GENERAL: A&Ox3, no acute distress EYES: PERRLA, EOMI ENT: Dry mucus membranes NECK: No JVD LUNGS: CTA, no wheezes, no accessory muscle movement HEART: RRR, no murmurs ABDOMEN: Soft, nontender, BS present EXTREMITIES: L sided bandages from endarterectomy and fem/tib bypass present on medial aspect of L leg, dry and not stained. strong PT and DP pulses were dopplerable and palpated. Erythematous left foot with distal regions with signs of ischemia, improved as compared with yesterday's exam. NEUROLOGICAL: Cranial nerves II-XII intact. No focal neurologic deficits. Sensation intact bilaterally in upper and lower extremities Laboratory Results - last 24 hr 01/03/19 01/03/19 01/03/19 11:59 17:48 21:43 WBC RBC Hgb Hct MCV MCH MCHC RDW Plt Count MPV Absolute Neuts (auto) Neutrophils % Lymphocytes % Monocytes % Eosinophils % Basophils % Nucleated RBC % Sodium Potassium Chloride Carbon Dioxide Anion Gap BUN Creatinine Est GFR (CKD-EPI)AfAm Est GFR (CKD-EPI)NonAf POC Glucometer 271 247 249 Random Glucose Calcium Phosphorus Magnesium 01/04/19 01/04/19 01/04/19 05:45 06:00 06:00 WBC 7.0 RBC 2.55 L Hgb 9.5 L Hct 26.2 L MCV 102.9 H MCH 37.2 H MCHC 36.1 H RDW 13.4 Plt Count 108 L MPV 7.2 L Absolute Neuts (auto) 4.2 Neutrophils % 60.7 D Lymphocytes % 24.5 D Monocytes % 12.0 H Eosinophils % 2.4 D Basophils % 0.4 D Nucleated RBC % 0 Sodium 135 L Potassium 4.0 Chloride 96 L Carbon Dioxide 33 H Anion Gap 5 L BUN 13.2 Creatinine 0.8 Est GFR (CKD-EPI)AfAm 84.77 Est GFR (CKD-EPI)NonAf 73.14 POC Glucometer 272 Random Glucose 250 H Calcium 8.6 Phosphorus 3.1 Magnesium 1.5 L Active Medications Generic Name Dose Route Start Last Admin Trade Name Freq PRN Reason Stop Dose Admin Acetaminophen 650 mg 01/04/19 02:51 01/04/19 03:00 Tylenol - PO 650 mg Q4H PRN Administration FEVER Aspirin 81 mg 01/03/19 10:00 01/04/19 09:43 Asa - PO 81 mg DAILY [facility] Administration Atenolol 100 mg 01/03/19 10:00 01/04/19 09:40 Tenormin - PO 100 mg DAILY [facility] Administration Chlorthalidone 25 mg 01/03/19 10:00 01/03/19 09:39 Hygroton - PO 25 mg DAILY [facility] Administration Clopidogrel Bisulfate 75 mg 01/03/19 10:00 01/04/19 09:43 Plavix - PO 75 mg DAILY [facility] Administration Diazepam 5 mg 01/03/19 11:22 01/03/19 15:29 Valium - PO 5 mg BID PRN Administration ANXIETY Docusate Sodium 100 mg 01/02/19 19:08 Colace - PO BID PRN CONSTIPATION Insulin Aspart 1 vial 01/03/19 16:30 01/04/19 06:18 Novolog Vial Sliding Scale - SQ 6 units ACHS [facility] Administration Protocol Morphine Sulfate 2 mg 01/02/19 19:06 01/03/19 08:10 Morphine Sulfate IVPUSH 2 mg Q4H PRN Administration PAIN LEVEL 1-5 Patient's Own 1 each 01/03/19 12:30 01/04/19 06:18 Medication (Non- PO 1 each Formulary)Captopril TID [facility] Administration 100 Mg Tab Ondansetron HCl 4 mg 01/02/19 19:08 Zofran Injection IVPUSH Q6H PRN NAUSEA AND/OR VOMITING Oxycodone HCl 5 mg 01/03/19 09:23 Roxicodone - PO Q6H PRN PAIN LEVEL 1-5 Oxycodone HCl 10 mg 01/03/19 09:23 01/04/19 09:41 Roxicodone - PO 10 mg Q6H PRN Administration PAIN LEVEL 6-10 Pantoprazole Sodium 40 mg 01/04/19 10:00 08/14/19 09:43 Protonix - PO 40 mg DAILY [facility] Administration ASSESSMENT/PLAN: Jasmin Otto is a 73 year old female with a history of diabetes mellitus, hypertension, ASCVD for 2 months, coronary artery disease, congestive heart failure, chronic obstructive pulmonary disease, diverticulosis, hemorrhoids, IBS , and ischemic left foot/atherosclerosis of femoral artery is s/p left femoral- posterior tibial bypass with in situ saphenous vein and left femoral endarterectomy with Dr. Luu. Ischemic L Foot s/p femoral-posterior bypass. DM HTN PVD CAD CHF COPD Neurological -no acute neurologic deficits -continue to monitor sensation and motor strength of L leg -OOB today with physical therapy Cardiovascular -patient is s/p L foot femoral-posterior tibial bypass with Dr. Luu POD 2 -good PT and DP pulses palpated and dopplerable -continue pain management with tylenol and morphine 2mg q4h -zofran for nausea -home captopril 100mg tid -home chlorthalidone -aspirin and plavix restarted Pulmonary -on nasal cannula, saturating 100% -COPD at baseline, can give duonebs/steroids if patient starts to become short of breath/wheeze -incentive spirometer Gastrointestinal -protonix 40mg daily with good effect Renal -no acute complaints -palacios removed Endocrine -BGM ACHS -ISS Psych -valium 5mg bid prn for anxiety FEN -no standing fluids -continue to monitor electrolytes and replete as necessary, hypomagnesemia noted , repleted -sodium controlled/diabetic diet Prophylaxis -SCDs Disposition -stable for transfer to Med-surg CASE DISCUSSED WITH DR JESS BARBOSA DO - PGY-1 Visit type - Emergency Visit Emergency Visit: No - New Patient This patient is new to me today: No - Critical Care Critical Care patient: No
--- NOTE | 2019-01-04 11:54 | PN ---
Teaching Attending Note Name of Resident: Vargas Light ATTENDING PHYSICIAN STATEMENT I saw and evaluated the patient. I reviewed the resident's note and discussed the case with the resident. I agree with the resident's findings and plan as documented. SUBJECTIVE: Patient seen and examined in the ICU. Awake and alert. Minimal discomfort of the LLE. No CP or SOB. No acute events overnight. Intake & Output 01/01/19 01/02/19 01/03/19 01/04/19 23:59 23:59 23:59 23:59 Intake Total 2545 2429 150 Output Total 750 2900 900 Balance 7905 -121 -967 Weight 149 lb 7 oz 151 lb 8 oz Last Vital Signs Temp Pulse Resp BP Pulse Ox 98.3 F 69 20 157/52 L 95 01/04/19 08:00 01/04/19 10:00 01/04/19 10:00 01/04/19 10:00 01/04/19 09:00 Active Medications Acetaminophen (Tylenol -) 650 mg PO Q4H PRN PRN Reason: FEVER Last Admin: 01/04/19 03:00 Dose: 650 mg Aspirin (Asa -) 81 mg PO DAILY [facility] Last Admin: 01/04/19 09:43 Dose: 81 mg Atenolol (Tenormin -) 100 mg PO DAILY [facility] Last Admin: 01/04/19 09:40 Dose: 100 mg Chlorthalidone (Hygroton -) 25 mg PO DAILY [facility] Last Admin: 01/04/19 11:37 Dose: 25 mg Clopidogrel Bisulfate (Plavix -) 75 mg PO DAILY [facility] Last Admin: 01/04/19 09:43 Dose: 75 mg Diazepam (Valium -) 5 mg PO BID PRN PRN Reason: ANXIETY Last Admin: 01/03/19 15:29 Dose: 5 mg Docusate Sodium (Colace -) 100 mg PO BID PRN PRN Reason: CONSTIPATION Insulin Aspart (Novolog Vial Sliding Scale -) 1 vial SQ [facility]; Protocol Last Admin: 01/04/19 11:43 Dose: 7 units Morphine Sulfate (Morphine Sulfate) 2 mg IVPUSH Q4H PRN PRN Reason: PAIN LEVEL 1-5 Last Admin: 01/03/19 08:10 Dose: 2 mg Patient's Own Medication (Non- Formulary)Captopril 100 Mg Tab 1 each PO TID [facility] Last Admin: 01/04/19 06:18 Dose: 1 each Ondansetron HCl (Zofran Injection) 4 mg IVPUSH Q6H PRN PRN Reason: NAUSEA AND/OR VOMITING Oxycodone HCl (Roxicodone -) 5 mg PO Q6H PRN PRN Reason: PAIN LEVEL 1-5 Oxycodone HCl (Roxicodone -) 10 mg PO Q6H PRN PRN Reason: PAIN LEVEL 6-10 Last Admin: 01/04/19 09:41 Dose: 10 mg Pantoprazole Sodium (Protonix -) 40 mg PO DAILY [facility] Last Admin: 01/04/19 09:43 Dose: 40 mg GENERAL: A&Ox3, no acute distress EYES: PERRLA, EOMI ENT: Dry mucus membranes NECK: No JVD LUNGS: CTA, no wheezes HEART: RRR, no murmurs ABDOMEN: Soft, nontender, BS present EXTREMITIES: LLE bandages from endarterectomy and fem/tib bypass present on medial aspect of L leg, dry and not stained. strong PT and DP pulses were dopplerable and palpated. NEUROLOGICAL: Non-focal Laboratory Results - last 24 hr 01/03/19 01/03/19 01/03/19 11:59 17:48 21:43 WBC RBC Hgb Hct MCV MCH MCHC RDW Plt Count MPV Absolute Neuts (auto) Neutrophils % Lymphocytes % Monocytes % Eosinophils % Basophils % Nucleated RBC % Sodium Potassium Chloride Carbon Dioxide Anion Gap BUN Creatinine Est GFR (CKD-EPI)AfAm Est GFR (CKD-EPI)NonAf POC Glucometer 271 247 249 Random Glucose Calcium Phosphorus Magnesium 01/04/19 01/04/19 01/04/19 05:45 06:00 06:00 WBC 7.0 RBC 2.55 L Hgb 9.5 L Hct 26.2 L MCV 102.9 H MCH 37.2 H MCHC 36.1 H RDW 13.4 Plt Count 108 L MPV 7.2 L Absolute Neuts (auto) 4.2 Neutrophils % 60.7 D Lymphocytes % 24.5 D Monocytes % 12.0 H Eosinophils % 2.4 D Basophils % 0.4 D Nucleated RBC % 0 Sodium 135 L Potassium 4.0 Chloride 96 L Carbon Dioxide 33 H Anion Gap 5 L BUN 13.2 Creatinine 0.8 Est GFR (CKD-EPI)AfAm 84.77 Est GFR (CKD-EPI)NonAf 73.14 POC Glucometer 272 Random Glucose 250 H Calcium 8.6 Phosphorus 3.1 Magnesium 1.5 L 01/04/19 11:41 WBC RBC Hgb Hct MCV MCH MCHC RDW Plt Count MPV Absolute Neuts (auto) Neutrophils % Lymphocytes % Monocytes % Eosinophils % Basophils % Nucleated RBC % Sodium Potassium Chloride Carbon Dioxide Anion Gap BUN Creatinine Est GFR (CKD-EPI)AfAm Est GFR (CKD-EPI)NonAf POC Glucometer 315 Random Glucose Calcium Phosphorus Magnesium ASSESSMENT/PLAN: POD #2: Left femoral-posterior tibial bypass with in situ saphenous vein and left femoral endarterectomy Diverticulosis Hemorrhoids IBS Ischemic Left Foot DM HTN PVD CAD CHF COPD Anti-hypertensives as ordered O2 as needed VTE prophylaxis ASA Plavix Incentive Spirometry Local wound care per surgery Floor Dr Rehman OBJECTIVE: ASSESSMENT AND PLAN:
--- NOTE | 2019-01-04 16:03 | PATH ---
Surgical Pathology Report Patient Name: VALERIO LICONA Med. Rec. 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 Specimen(s) Received LEFT FEMORAL ARTERY PLAQUE Clinical History Atherosclerosis left lower extremity Final Diagnosis LEFT FEMORAL ARTERY PLAQUE, REMOVAL: ATHEROMATOUS PLAQUE WITH CALCIFICATIONS. Electronically Signed Maricarmen Ewing M.D. Gross Description Received in formalin labeled "left femoral artery plaque," is a 3.4 x 2.2 x 0.4 cm aggregate of multiple lopez portions of focally calcified plaque. Software Program Manager sections are submitted in one cassette, following decalcification. /01/03/2019 saudi/01/03/2019
[2019-01-04] MEDS ORDERED: DOCUSATE SODIUM 100 MG CAPSULE (FP) PO PRN (19:49)
[2019-01-04] MEDS ORDERED: oxyCODONE HCL 5 MG TABLET PO PRN (19:49)
[2019-01-04] MEDS ORDERED: MORPHINE SULFATE 2 MG/ML VIAL IVPUSH PRN (19:49)
[2019-01-04] MEDS ORDERED: ONDANSETRON 4 MG/2 ML VIAL IVPUSH PRN (19:49)
[2019-01-04] MEDS: diazePAM 5 MG TABLET PO PRN (23:31)
[2019-01-05] MEDS: oxyCODONE HCL 5 MG TABLET PO PRN ×4 (06:04→23:51)
[2019-01-05] MEDS: INSULIN SLIDING SCALE (NOVOLOG) 1 VIAL SQ SCH ×4 (07:05→21:44)
[2019-01-05] MEDS ORDERED: INSULIN (NOVOLOG) ASPART 100 UNITS/ML 10ML VIAL ONE ×2 (07:07→11:31)
[2019-01-05 07:48] LABS: HEMATOCRIT 26.3 % (32.4-45.2); HEMOGLOBIN 9.5 GM/dL (10.7-15.3); MCH 36.9 pg (25.7-33.7); MEAN CELL VOLUME 102.6 fl (80-96); MEAN PLT VOLUME 7.1 fl (7.5-11.1); PLATELET COUNT 115 K/MM3 (134-434); RBC 2.57 M/mm3 (3.60-5.2); RDW 13.3 % (11.6-15.6); WHITE BLOOD COUNT 7.3 K/mm3 (4.0-10.0)
[2019-01-05 07:49] LABS: BLOOD UREA NITROGEN 13.4 mg/dL (7-18); CALCIUM 8.6 mg/dL (8.5-10.1); CREATININE 0.8 mg/dL (0.55-1.3); MAGNESIUM 1.6 mg/dL (1.8-2.4); POTASSIUM 3.3 mmol/L (3.5-5.1)
[2019-01-05] MEDS ORDERED: PT OWN MED DRAWER 7, Y5N ONE ×4 (09:43→15:01)
[2019-01-05] MEDS: ASPIRIN 81 MG CHEWABLE TABLETS PO SCH (09:51)
[2019-01-05] MEDS: ATENOLOL 50 MG TABLET (FP) PO SCH (09:52)
[2019-01-05] MEDS: CHLORTHALIDONE 25 MG TABLET PO SCH (09:52)
[2019-01-05] MEDS: CLOPIDOGREL BISULFATE 75 MG TABLET (FP) PO SCH (09:52)
[2019-01-05] MEDS: PANTOPRAZOLE 40 MG TABLET (FP) PO SCH (09:52)
--- NOTE | 2019-01-05 14:22 | PN ---
Progress Note (short form) - Note Progress Note: POD#3 PT states that she is having groin pain with oob to chair and lifting her leg in bed. No CP/SOB. passing flatus. Vital Signs Period Temp Pulse Resp BP Sys/Dacosta Pulse Ox Last 24 Hr 98.2 F-98.8 F 68-75 16-26 86-151/47-68 95 GEN: A&0x3, NAD LLE: inc c/d/i. calf soft. dressing c/d/i with tegaderm and gauze. Groin dressing changed. small amount of ecchymosis/ new dressing applied. foot warm and pulse with doppler. CBC, BMP 08/15/19 07:00 08/15/19 07:00 A/P: 73 yo female s/p LLE bypass(left femoral PT bypass with vein), POD#3 Continue diet as tolerated OOB with PT Case managment for eval and possible need for rehab continue aspirin/plavix D/w Dr. Luu
--- NOTE | 2019-01-05 14:52 | PN ---
Progress Note (short form) - Note Progress Note: Feeling well. Dressing just changed by Surgical PA. No CP or SOB. Intake & Output 01/02/19 01/03/19 01/04/19 01/05/19 23:59 23:59 23:59 23:59 Intake Total 2545 2429 700 200 Output Total 750 2900 2450 500 Balance 1795 -471 -1750 -300 Weight 149 lb 7 oz 151 lb 153 lb 3 oz Last Vital Signs Temp Pulse Resp BP Pulse Ox 98.8 F 74 20 151/65 95 01/05/19 08:45 01/05/19 08:45 01/05/19 08:45 01/05/19 08:45 01/04/19 19:30 Active Medications Acetaminophen (Tylenol -) 650 mg PO Q4H PRN PRN Reason: FEVER Aspirin (Asa -) 81 mg PO DAILY [facility] Last Admin: 01/05/19 09:51 Dose: 81 mg Atenolol (Tenormin -) 100 mg PO DAILY [facility] Last Admin: 01/05/19 09:52 Dose: 100 mg Chlorthalidone (Hygroton -) 25 mg PO DAILY [facility] Last Admin: 01/05/19 09:52 Dose: 25 mg Clopidogrel Bisulfate (Plavix -) 75 mg PO DAILY [facility] Last Admin: 01/05/19 09:52 Dose: 75 mg Diazepam (Valium -) 5 mg PO Q12H PRN PRN Reason: ANXIETY Last Admin: 01/04/19 23:31 Dose: 5 mg Docusate Sodium (Colace -) 100 mg PO Q12H PRN PRN Reason: CONSTIPATION Insulin Aspart (Novolog Vial Sliding Scale -) 1 vial SQ [facility]; Protocol Last Admin: 01/05/19 11:33 Dose: 6 units Non-Formulary Medication (Patient's Own Med) 1 each PO DAILY [facility] Ondansetron HCl (Zofran Injection) 4 mg IVPUSH Q6H PRN PRN Reason: NAUSEA AND/OR VOMITING Oxycodone HCl (Roxicodone -) 5 mg PO Q6H PRN PRN Reason: PAIN LEVEL 1-5 Oxycodone HCl (Roxicodone -) 10 mg PO Q6H PRN PRN Reason: PAIN LEVEL 6-10 Last Admin: 01/05/19 11:22 Dose: 10 mg Pantoprazole Sodium (Protonix -) 40 mg PO DAILY [facility] Last Admin: 01/05/19 09:52 Dose: 40 mg GENERAL: AOx3, no acute distress EYES: PERRLA, EOMI ENT: Dry mucus membranes NECK: No JVD LUNGS: CTA, no wheezes HEART: RRR, no murmurs ABDOMEN: Soft, nontender, BS present EXTREMITIES: LLE bandages from endarterectomy and fem/tib bypass present on medial aspect of L leg, dry and not stained. strong PT and DP pulses were dopplerable and palpated. NEUROLOGICAL: Non-focal Laboratory Results - last 24 hr 01/04/19 01/04/19 01/05/19 17:12 21:38 05:59 WBC RBC Hgb Hct MCV MCH MCHC RDW Plt Count MPV Sodium Potassium Chloride Carbon Dioxide Anion Gap BUN Creatinine Est GFR (CKD-EPI)AfAm Est GFR (CKD-EPI)NonAf POC Glucometer 300 283 217 Random Glucose Calcium Phosphorus Magnesium 01/05/19 01/05/19 01/05/19 07:00 07:00 11:26 WBC 7.3 RBC 2.57 L Hgb 9.5 L Hct 26.3 L MCV 102.6 H MCH 36.9 H MCHC 36.0 RDW 13.3 Plt Count 115 L MPV 7.1 L Sodium 133 L Potassium 3.3 L Chloride 94 L Carbon Dioxide 31 Anion Gap 9 BUN 13.4 Creatinine 0.8 Est GFR (CKD-EPI)AfAm 84.77 Est GFR (CKD-EPI)NonAf 73.14 POC Glucometer 275 Random Glucose 232 H Calcium 8.6 Phosphorus 3.0 Magnesium 1.6 L ASSESSMENT/PLAN: POD #3: Left femoral-posterior tibial bypass with in situ saphenous vein and left femoral endarterectomy Diverticulosis Hemorrhoids IBS Ischemic Left Foot DM HTN PVD CAD CHF Stable COPD BD TX PRN O2 as needed VTE prophylaxis ASA Plavix Incentive Spirometry Local wound care per surgery Dr Rehman
[2019-01-05] MEDS: CAPTOPRIL 100 MG PO SCH (21:41)
[2019-01-05] MEDS: diazePAM 5 MG TABLET PO PRN (23:51)
[2019-01-06] MEDS: oxyCODONE HCL 5 MG TABLET PO PRN ×3 (04:53→21:10)
[2019-01-06] MEDS: CAPTOPRIL 100 MG PO SCH ×3 (06:04→21:09)
[2019-01-06] MEDS: INSULIN SLIDING SCALE (NOVOLOG) 1 VIAL SQ SCH ×4 (06:08→21:14)
[2019-01-06] MEDS ORDERED: PT OWN MED DRAWER 7, Y5N ONE (10:16)
[2019-01-06] MEDS: ATENOLOL 50 MG TABLET (FP) PO SCH (10:43)
[2019-01-06] MEDS: PANTOPRAZOLE 40 MG TABLET (FP) PO SCH (10:44)
[2019-01-06] MEDS: CLOPIDOGREL BISULFATE 75 MG TABLET (FP) PO SCH (10:45)
[2019-01-06] MEDS: CHLORTHALIDONE 25 MG TABLET PO SCH (10:45)
[2019-01-06] MEDS: ASPIRIN 81 MG CHEWABLE TABLETS PO SCH (10:46)
--- NOTE | 2019-01-06 11:31 | PN ---
Progress Note (short form) - Note Progress Note: 73yo F s/p LLE fem-pop bypass, pt states that she has been doing a little better today. Pt states she was able to walk to the bathroom by herself for the first time today. Pt denies fever, chills, n/v. Spoke about possible rehab placement, but pt is concerned that her will be home alone if she is at rehab facility. PE: Gen: A&O x 3 Resp: breathing comfortably LLE: +2 PT pulse, incision clean with no erythema, hyperpigmentation of the distal foot, but warm. 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 -OOB/ambulate -pain control -dvt ppx -appreciate social work recs. Code(s): I99.8 - OTHER DISORDER OF CIRCULATORY SYSTEM
[2019-01-06 11:32] LABS: BLOOD UREA NITROGEN 17.2 mg/dL (7-18); CALCIUM 8.8 mg/dL (8.5-10.1); CREATININE 0.8 mg/dL (0.55-1.3)
--- NOTE | 2019-01-06 13:41 | PN ---
Progress Note (short form) - Note Progress Note: Feeling well. Dressing just changed by Surgical PA. No CP or SOB. Intake & Output 01/03/19 01/04/19 01/05/19 01/06/19 23:59 23:59 23:59 23:59 Intake Total 2429 700 600 Output Total 2900 2450 500 Balance -471 -1750 100 Weight 149 lb 7 oz 151 lb 153 lb 3 oz 152 lb 4 oz Last Vital Signs Temp Pulse Resp BP Pulse Ox 98.5 F 74 18 127/54 L 95 01/06/19 10:00 01/06/19 10:00 01/06/19 10:00 01/06/19 10:00 01/05/19 21:00 Active Medications Acetaminophen (Tylenol -) 650 mg PO Q4H PRN PRN Reason: FEVER Aspirin (Asa -) 81 mg PO DAILY [facility] Last Admin: 01/06/19 10:46 Dose: 81 mg Atenolol (Tenormin -) 100 mg PO DAILY [facility] Last Admin: 01/06/19 10:43 Dose: 100 mg Chlorthalidone (Hygroton -) 25 mg PO DAILY [facility] Last Admin: 01/06/19 10:45 Dose: 25 mg Clopidogrel Bisulfate (Plavix -) 75 mg PO DAILY [facility] Last Admin: 01/06/19 10:45 Dose: 75 mg Diazepam (Valium -) 5 mg PO Q12H PRN PRN Reason: ANXIETY Last Admin: 01/05/19 23:51 Dose: 5 mg Docusate Sodium (Colace -) 100 mg PO Q12H PRN PRN Reason: CONSTIPATION Potassium Chloride (Potassium Chloride 10 Meq Premix Ivpb -) 10 meq in 100 mls @ 100 mls/hr IVPB Q60M [facility] Stop: 01/06/19 14:44 Insulin Aspart (Novolog Vial Sliding Scale -) 1 vial SQ ACHS [facility]; Protocol Last Admin: 01/06/19 12:24 Dose: 8 units Patient's Own Medication (Non- Formulary) Captopril 100mg 1 each PO TID [facility] Last Admin: 01/06/19 06:04 Dose: 1 each Ondansetron HCl (Zofran Injection) 4 mg IVPUSH Q6H PRN PRN Reason: NAUSEA AND/OR VOMITING Oxycodone HCl (Roxicodone -) 5 mg PO Q6H PRN PRN Reason: PAIN LEVEL 1-5 Oxycodone HCl (Roxicodone -) 10 mg PO Q6H PRN PRN Reason: PAIN LEVEL 6-10 Last Admin: 01/06/19 04:53 Dose: 10 mg Pantoprazole Sodium (Protonix -) 40 mg PO DAILY [facility] Last Admin: 01/06/19 10:44 Dose: 40 mg GENERAL: AOx3, no acute distress EYES: PERRLA, EOMI ENT: Dry mucus membranes NECK: No JVD LUNGS: CTA, no wheezes HEART: RRR, no murmurs ABDOMEN: Soft, nontender, BS present EXTREMITIES: LLE bandages from endarterectomy and fem/tib bypass present on medial aspect of L leg, dry and not stained. NEUROLOGICAL: Non-focal Laboratory Results - last 24 hr 01/02/19 01/05/19 01/05/19 10:24 16:31 21:44 Sodium Potassium Chloride Carbon Dioxide Anion Gap BUN Creatinine Est GFR (CKD-EPI)AfAm Est GFR (CKD-EPI)NonAf POC Glucometer 212 271 Random Glucose Calcium Blood Type O POSITIVE Antibody Screen Negative Crossmatch See Detail 01/06/19 01/06/19 01/06/19 06:06 10:02 12:22 Sodium 133 L Potassium 3.0 L Chloride 92 L Carbon Dioxide 33 H Anion Gap 8 BUN 17.2 Creatinine 0.8 Est GFR (CKD-EPI)AfAm 84.77 Est GFR (CKD-EPI)NonAf 73.14 POC Glucometer 200 354 Random Glucose 210 H Calcium 8.8 Blood Type Antibody Screen Crossmatch ASSESSMENT/PLAN: POD #4: Left femoral-posterior tibial bypass with in situ saphenous vein and left femoral endarterectomy Diverticulosis Hemorrhoids IBS Ischemic Left Foot DM HTN PVD CAD CHF Stable COPD BD TX PRN O2 as needed VTE prophylaxis ASA Plavix Incentive Spirometry Local wound care per surgery Dr Rehman
[2019-01-06] MEDS: KCL 10 MEQ IVPB 10 MEQ/100 ML INFUS.BAG IVPB SCH ×2 (14:10→17:11)
[2019-01-06] MEDS: diazePAM 5 MG TABLET PO PRN (21:10)
[2019-01-07] MEDS: oxyCODONE HCL 5 MG TABLET PO PRN ×3 (02:51→22:42)
[2019-01-07] MEDS: CAPTOPRIL 100 MG PO SCH ×3 (05:57→22:43)
[2019-01-07] MEDS: INSULIN SLIDING SCALE (NOVOLOG) 1 VIAL SQ SCH ×4 (06:05→22:44)
[2019-01-07 08:48] LABS: BLOOD UREA NITROGEN 17.2 mg/dL (7-18); CALCIUM 8.7 mg/dL (8.5-10.1); CREATININE 0.9 mg/dL (0.55-1.3); POTASSIUM 3.9 mmol/L (3.5-5.1)
[2019-01-07] MEDS ORDERED: PT OWN MED DRAWER 7, Y5N ONE ×2 (09:32→22:52)
[2019-01-07] MEDS: ASPIRIN 81 MG CHEWABLE TABLETS PO SCH (09:34)
[2019-01-07] MEDS: CHLORTHALIDONE 25 MG TABLET PO SCH (09:34)
[2019-01-07] MEDS: CLOPIDOGREL BISULFATE 75 MG TABLET (FP) PO SCH (09:34)
[2019-01-07] MEDS: PANTOPRAZOLE 40 MG TABLET (FP) PO SCH (09:34)
[2019-01-07] MEDS: ATENOLOL 50 MG TABLET (FP) PO SCH ×2 (09:35→09:40)
--- NOTE | 2019-01-07 10:52 | PN ---
Progress Note (short form) - Note Progress Note: Feels a little weak today. Surgical dressing was removed. No CP or SOB. Minimal ambulation with PT yesterday. Intake & Output 01/04/19 01/05/19 01/06/19 01/07/19 23:59 23:59 23:59 23:59 Intake Total 700 600 340 Output Total 2450 500 Balance -1750 100 340 Weight 151 lb 153 lb 3 oz 152 lb 4 oz 151 lb 12.8 oz Last Vital Signs Temp Pulse Resp BP Pulse Ox 99.2 F 66 20 125/59 L 95 01/07/19 06:00 01/07/19 06:00 01/07/19 06:00 01/07/19 06:00 01/06/19 21:00 Active Medications Acetaminophen (Tylenol -) 650 mg PO Q4H PRN PRN Reason: FEVER Aspirin (Asa -) 81 mg PO DAILY [facility] Last Admin: 01/07/19 09:34 Dose: 81 mg Atenolol (Tenormin -) 100 mg PO DAILY [facility] Last Admin: 01/07/19 09:40 Dose: Not Given Chlorthalidone (Hygroton -) 25 mg PO DAILY [facility] Last Admin: 01/07/19 09:34 Dose: 25 mg Clopidogrel Bisulfate (Plavix -) 75 mg PO DAILY [facility] Last Admin: 01/07/19 09:34 Dose: 75 mg Diazepam (Valium -) 5 mg PO Q12H PRN PRN Reason: ANXIETY Last Admin: 01/06/19 21:10 Dose: 5 mg Docusate Sodium (Colace -) 100 mg PO Q12H PRN PRN Reason: CONSTIPATION Insulin Aspart (Novolog Vial Sliding Scale -) 1 vial SQ ACHS [facility]; Protocol Last Admin: 01/07/19 06:05 Dose: 2 units Patient's Own Medication (Non- Formulary) Captopril 100mg 1 each PO TID [facility] Last Admin: 01/07/19 05:57 Dose: 1 each Ondansetron HCl (Zofran Injection) 4 mg IVPUSH Q6H PRN PRN Reason: NAUSEA AND/OR VOMITING Oxycodone HCl (Roxicodone -) 5 mg PO Q6H PRN PRN Reason: PAIN LEVEL 1-5 Oxycodone HCl (Roxicodone -) 10 mg PO Q6H PRN PRN Reason: PAIN LEVEL 6-10 Last Admin: 01/07/19 02:51 Dose: 10 mg Pantoprazole Sodium (Protonix -) 40 mg PO DAILY [facility] Last Admin: 01/07/19 09:34 Dose: 40 mg GENERAL: AOx3, no acute distress EYES: PERRLA, EOMI ENT: Dry mucus membranes NECK: No JVD LUNGS: CTA, no wheezes HEART: RRR, no murmurs ABDOMEN: Soft, nontender, BS present EXTREMITIES: bandages removed, fem/tib bypass intact NEUROLOGICAL: Non-focal Laboratory Results - last 24 hr 01/06/19 01/06/19 01/06/19 10:02 12:22 17:27 Sodium 133 L Potassium 3.0 L Chloride 92 L Carbon Dioxide 33 H Anion Gap 8 BUN 17.2 Creatinine 0.8 Est GFR (CKD-EPI)AfAm 84.77 Est GFR (CKD-EPI)NonAf 73.14 POC Glucometer 354 229 Random Glucose 210 H Calcium 8.8 01/06/19 01/07/19 01/07/19 21:13 05:20 07:27 Sodium 135 L Potassium 3.9 Chloride 94 L Carbon Dioxide 34 H Anion Gap 7 L BUN 17.2 Creatinine 0.9 Est GFR (CKD-EPI)AfAm 73.52 Est GFR (CKD-EPI)NonAf 63.43 POC Glucometer 240 196 Random Glucose 180 H Calcium 8.7 ASSESSMENT/PLAN: POD #5: Left femoral-posterior tibial bypass with in situ saphenous vein and left femoral endarterectomy Diverticulosis Hemorrhoids IBS Ischemic Left Foot DM HTN PVD CAD CHF Stable COPD BD TX PRN O2 as needed VTE prophylaxis ASA Plavix Incentive Spirometry Local wound care per surgery PT Monitor BP: may need to adjust Atenolol (NITZA being held) Dr Rehman
[2019-01-07] MEDS ORDERED: INSULIN (NOVOLOG) ASPART 100 UNITS/ML 10ML VIAL ONE (11:26)
[2019-01-07] MEDS ORDERED: oxyCODONE HCL 5 MG TABLET PO PRN (22:24)
[2019-01-07] MEDS ORDERED: diazePAM 5 MG TABLET PO ONE (23:30)
[2019-01-08] MEDS: oxyCODONE HCL 5 MG TABLET PO PRN ×3 (06:04→22:38)
[2019-01-08] MEDS: CAPTOPRIL 100 MG PO SCH ×3 (06:08→22:39)
[2019-01-08] MEDS: INSULIN SLIDING SCALE (NOVOLOG) 1 VIAL SQ SCH ×4 (06:11→22:42)
[2019-01-08] MEDS ORDERED: PT OWN MED DRAWER 7, Y5N ONE ×3 (07:20→17:51)
[2019-01-08] MEDS: ASPIRIN 81 MG CHEWABLE TABLETS PO SCH (10:09)
[2019-01-08] MEDS: CHLORTHALIDONE 25 MG TABLET PO SCH (10:10)
[2019-01-08] MEDS: PANTOPRAZOLE 40 MG TABLET (FP) PO SCH (10:11)
[2019-01-08] MEDS: CLOPIDOGREL BISULFATE 75 MG TABLET (FP) PO SCH (10:11)
[2019-01-08] MEDS: ATENOLOL 50 MG TABLET (FP) PO SCH (10:11)
--- NOTE | 2019-01-08 11:16 | PN ---
Progress Note (short form) - Note Progress Note: Feels a little better today. No CP or SOB. Some ambulation yesterday. Intake & Output 01/05/19 01/06/19 01/07/19 01/08/19 23:59 23:59 23:59 23:59 Intake Total 600 340 400 200 Output Total 500 Balance 100 340 400 200 Weight 153 lb 3 oz 152 lb 4 oz 151 lb 12.8 oz 149 lb 7 oz Last Vital Signs Temp Pulse Resp BP Pulse Ox 98.3 F 70 18 143/52 L 95 01/08/19 06:09 01/08/19 06:09 01/08/19 06:09 01/08/19 06:09 01/07/19 21:00 Active Medications Acetaminophen (Tylenol -) 650 mg PO Q4H PRN PRN Reason: FEVER Aspirin (Asa -) 81 mg PO DAILY [facility] Last Admin: 01/08/19 10:09 Dose: 81 mg Atenolol (Tenormin -) 100 mg PO DAILY [facility] Last Admin: 01/08/19 10:11 Dose: Not Given Chlorthalidone (Hygroton -) 25 mg PO DAILY [facility] Last Admin: 01/08/19 10:10 Dose: 25 mg Clopidogrel Bisulfate (Plavix -) 75 mg PO DAILY [facility] Last Admin: 01/08/19 10:11 Dose: 75 mg Docusate Sodium (Colace -) 100 mg PO Q12H PRN PRN Reason: CONSTIPATION Insulin Aspart (Novolog Vial Sliding Scale -) 1 vial SQ ACHS [facility]; Protocol Last Admin: 01/08/19 06:11 Dose: Not Given Patient's Own Medication (Non- Formulary) Captopril 100mg 1 each PO TID [facility] Last Admin: 01/08/19 06:08 Dose: 1 each Ondansetron HCl (Zofran Injection) 4 mg IVPUSH Q6H PRN PRN Reason: NAUSEA AND/OR VOMITING Oxycodone HCl (Roxicodone -) 5 mg PO Q6H PRN PRN Reason: PAIN LEVEL 1-5 Oxycodone HCl (Roxicodone -) 10 mg PO Q6H PRN PRN Reason: PAIN LEVEL 6-10 Last Admin: 01/08/19 06:04 Dose: 10 mg Pantoprazole Sodium (Protonix -) 40 mg PO DAILY [facility] Last Admin: 01/08/19 10:11 Dose: 40 mg GENERAL: AOx3, no acute distress EYES: PERRLA, EOMI ENT: Dry mucus membranes NECK: No JVD LUNGS: CTA, no wheezes HEART: RRR, no murmurs ABDOMEN: Soft, nontender, BS present EXTREMITIES: bandages removed, fem/tib bypass intact NEUROLOGICAL: Non-focal Laboratory Results - last 24 hr 01/07/19 01/07/19 01/07/19 11:36 16:57 20:50 POC Glucometer 303 323 159 01/08/19 06:01 POC Glucometer 150 ASSESSMENT/PLAN: POD #6: Left femoral-posterior tibial bypass with in situ saphenous vein and left femoral endarterectomy Diverticulosis Hemorrhoids IBS Ischemic Left Foot DM HTN PVD CAD CHF Stable COPD Decrease Atenolol to 50mg OD BD TX PRN O2 as needed VTE prophylaxis ASA Plavix Incentive Spirometry Local wound care per surgery PT DC planning Dr Rehman
[2019-01-08 12:42] VITALS: BMI 25.0
[2019-01-08] MEDS ORDERED: INSULIN (NOVOLOG) ASPART 100 UNITS/ML 10ML VIAL ONE (17:28)
[2019-01-08] MEDS: diazePAM 5 MG TABLET PO PRN (22:38)
[2019-01-09] MEDS: oxyCODONE HCL 5 MG TABLET PO PRN ×2 (04:00→22:19)
[2019-01-09] MEDS ORDERED: PT OWN MED DRAWER 7, Y5N ONE ×4 (06:24→14:44)
[2019-01-09] MEDS: CAPTOPRIL 100 MG PO SCH ×3 (06:25→22:21)
[2019-01-09] MEDS ORDERED: INSULIN (NOVOLOG) ASPART 100 UNITS/ML 10ML VIAL ONE (06:55)
[2019-01-09] MEDS: INSULIN SLIDING SCALE (NOVOLOG) 1 VIAL SQ SCH ×4 (06:59→22:21)
--- NOTE | 2019-01-09 09:15 | PN ---
Progress Note (short form) - Note Progress Note: POD #7 Left femoral-posterior tibial bypass with insitu saphenous vein. Left femoral endarterectomy Pt states that she continues to improve. She has been OOB and ambulating without assistance and per pain is controlled. 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 She does not want to go to rehab. She is tolerating her diet and denies an CP, SOB, fever, chills, n/v. Vital Signs Temp 97.9 F 01/09/19 06:00 Pulse 59 L 01/09/19 06:00 Resp 20 01/09/19 06:00 BP 131/56 L 01/09/19 06:00 Pulse Ox 95 01/08/19 21:00 Intake & Output 01/08/1901/08/01/09/19 11:59 23:59 11:59 Intake Total 200 500 100 Balance 200 500 100 Weight 149 lb 7 oz Intake: Oral 200 500 100 Other: Voiding Method Bedside Commode # Unmeasured Voids Void 1 2 1 Bowel Movement No No Body Mass Index (BMI) 25.0 Weight Measurement Method Built in [facility] CBC, BMP 01/05/19 07:00 01/07/19 07:27 PE: Gen: A&O x 3, NAD although expressing anxiety about the need to get home Resp: Unlabored resp on RA LLE: thigh and LE compartments soft and supple, palpable DP and PT pulses, incision c/d/i with surrounding tissue intact and no tracking erythema or evidence of collection or d/c. hyperpigmentation of the her left forefoot and toes which is unchanged since my colleagues exam on Saturday 01/06, foot and toes warm and well perfused. Right LE compartments soft, supple and non-tender with palpable pulses. Problem List - Problems (1) Ischemia of left lower extremity Assessment/Plan: POD #7 doing well and anxious to go home. 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 VNS pending -OOB/ambulate -pain control -dvt ppx -d/c planning for home with VNS Evaluation and plan discussed with Dr Luu Code(s): I99.8 - OTHER DISORDER OF CIRCULATORY SYSTEM
[2019-01-09] MEDS: ATENOLOL 50 MG TABLET (FP) PO SCH (11:06)
[2019-01-09] MEDS: CHLORTHALIDONE 25 MG TABLET PO SCH (11:07)
[2019-01-09] MEDS: ASPIRIN 81 MG CHEWABLE TABLETS PO SCH (11:07)
[2019-01-09] MEDS: PANTOPRAZOLE 40 MG TABLET (FP) PO SCH (11:07)
[2019-01-09] MEDS: CLOPIDOGREL BISULFATE 75 MG TABLET (FP) PO SCH (11:08)
[2019-01-09] MEDS: diazePAM 5 MG TABLET PO PRN (22:18)
[2019-01-10] MEDS ORDERED: PT OWN MED DRAWER 7, Y5N ONE ×4 (06:32→17:27)
[2019-01-10] MEDS: CAPTOPRIL 100 MG PO SCH ×2 (06:39→13:45)
[2019-01-10] MEDS: INSULIN SLIDING SCALE (NOVOLOG) 1 VIAL SQ SCH ×3 (06:40→16:36)
--- NOTE | 2019-01-10 10:22 | PN ---
Progress Note (short form) - Note Progress Note: POD #8 s/p Left femoral-posterior tibial bypass with insitu saphenous vein. Left femoral endarterectomy Pt reports she is not feeling strong enough to go home. Refusing rehab due to family issues. Pt was oob with PT yesterday. has been tolerating PO. No Bm yet, denies abdominal pain or discomfort. Passing flatus. Denies cp/sob, n/v/d. states that she continues to improve. She has been OOB and ambulating without assistance and per pain is controlled. 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 She does not want to go to rehab. She is tolerating her diet and denies an CP, SOB, fever , chills, n/v. Vital Signs Temp 98.2 F 01/10/19 06:37 Pulse 70 01/10/19 06:37 Resp 18 01/10/19 06:37 BP 150/70 01/10/19 06:37 Pulse Ox 98 01/09/19 21:00 Intake & Output 01/09/19 01/09/19 01/10/19 11:59 23:59 11:59 Intake Total 100 0 0 Balance 100 0 0 Weight 146 lb 1.6 oz Intake: IVPB 0 0 Oral 100 Other: Voiding Method Bedside Commode Bedside Commode # Unmeasured Voids Aguilera 2 Void 1 Bowel Movement No No Weight Measurement Method Built in [facility] CBC, BMP 01/05/19 07:00 01/07/19 07:27 PE: Gen: A&O x 3, NAD Resp: Unlabored resp on RA LLE: thigh and LE compartments soft and supple, palpable DP and PT pulses, incision c/d/i with surrounding tissue intact and no tracking erythema or evidence of collection or d/c. hyperpigmentation of the left forefoot and toes which is unchanged per pt, linear scab over distal tip of great toe, no drainage. Foot and toes warm and well perfused. Right LE compartments soft, supple and non-tender with palpable pulses. A/P: 73 y/o F w/ PMhx NIDM, HTN, ASCVD admitted for elective LLE bypass, now POD 8, s/p Left femoral-posterior tibial bypass with in situ saphenous vein. 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 Pt continues to decline rehab and discharge. -d/w RN and social work, pt is cleared for discharge. No medical necessity for further inpatient care Evaluation and plan discussed with Dr Luu
[2019-01-10] MEDS: CHLORTHALIDONE 25 MG TABLET PO SCH (10:26)
[2019-01-10] MEDS: CLOPIDOGREL BISULFATE 75 MG TABLET (FP) PO SCH (10:26)
[2019-01-10] MEDS: ASPIRIN 81 MG CHEWABLE TABLETS PO SCH (10:26)
[2019-01-10] MEDS: ATENOLOL 50 MG TABLET (FP) PO SCH (10:27)
[2019-01-10] MEDS: PANTOPRAZOLE 40 MG TABLET (FP) PO SCH (10:27)
[2019-01-10] MEDS ORDERED: POLYETHYLENE GLYCOL 3350 119 GM BTL PO SCH (11:30)
[2019-01-10 13:20] VITALS: BP 142/55; PULSE 65; TEMP 98
[2019-01-10] MEDS ORDERED: INSULIN (NOVOLOG) ASPART 100 UNITS/ML 10ML VIAL ONE (17:44)
--- NOTE | 2019-01-11 15:41 | DS ---
Physical Exam: SUBJECTIVE: Patient seen and examined. Pt reports she is not feeling strong enough to go home. Refusing rehab due to family issues. Pt was oob with PT yesterday. has been tolerating PO. No Bm yet, denies abdominal pain or discomfort. Passing flatus. Denies cp/sob, n/v/d. states that she continues to improve. She has been OOB and ambulating without assistance and per pain is controlled. 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 She does not want to go to rehab. She is tolerating her diet and denies an CP, SOB, fever, chills, n/v. OBJECTIVE: Vital Signs Temperature 98 F 01/10/19 08:15 Pulse Rate 65 01/10/19 08:15 Respiratory Rate 18 01/10/19 08:15 Blood Pressure 142/55 L 01/10/19 08:15 O2 Sat by Pulse Oximetry (%) 98 01/09/19 21:00 PHYSICAL EXAM Gen: A&O x 3, NAD Resp: Unlabored resp on RA LLE: thigh and LE compartments soft and supple, palpable DP and PT pulses, incision c/d/i with surrounding tissue intact and no tracking erythema or evidence of collection or d/c. hyperpigmentation of the left forefoot and toes which is unchanged per pt, linear scab over distal tip of great toe, no drainage. Foot and toes warm and well perfused. Right LE compartments soft, supple and non-tender with palpable pulses. LABS CBC,CMP WBC 7.3 K/mm3 (4.0-10.0) 01/05/19 07:00 RBC 2.57 M/mm3 (3.60-5.2) L 01/05/19 07:00 Hgb 9.5 GM/dL (10.7-15.3) L 01/05/19 07:00 Hct 26.3 % (32.4-45.2) L 01/05/19 07:00 MCV 102.6 fl (80-96) H 01/05/19 07:00 MCH 36.9 pg (25.7-33.7) H 01/05/19 07:00 MCHC 36.0 g/dl (32.0-36.0) 01/05/19 07:00 RDW 13.3 % (11.6-15.6) 01/05/19 07:00 Plt Count 115 K/MM3 (134-434) L 01/05/19 07:00 MPV 7.1 fl (7.5-11.1) L 01/05/19 07:00 Absolute Neuts (auto) 4.2 K/mm3 (1.5-8.0) 01/04/19 06:00 Neutrophils % 60.7 % (42.8-82.8) D 01/04/19 06:00 Lymphocytes % 24.5 % (8-40) D 01/04/19 06:00 Monocytes % 12.0 % (3.8-10.2) H 01/04/19 06:00 Eosinophils % 2.4 % (0-4.5) D 01/04/19 06:00 Basophils % 0.4 % (0-2.0) D 01/04/19 06:00 Nucleated RBC % 0 % (0-0) 01/04/19 06:00 Sodium 135 mmol/L (136-145) L 01/07/19 07:27 Potassium 3.9 mmol/L (3.5-5.1) 01/07/19 07:27 Chloride 94 mmol/L (98-107) L 01/07/19 07:27 Carbon Dioxide 34 mmol/L (21-32) H 01/07/19 07:27 Anion Gap 7 MMOL/L (8-16) L 01/07/19 07:27 BUN 17.2 mg/dL (7-18) 01/07/19 07:27 Creatinine 0.9 mg/dL (0.55-1.3) 01/07/19 07:27 Est GFR (CKD-EPI)AfAm 73.52 01/07/19 07:27 Est GFR (CKD-EPI)NonAf 63.43 01/07/19 07:27 POC Glucometer 224 UNITS (80-120) 01/10/19 16:32 Random Glucose 180 mg/dL (74-106) H 01/07/19 07:27 Calcium 8.7 mg/dL (8.5-10.1) 01/07/19 07:27 Phosphorus 3.0 mg/dL (2.5-4.9) 01/05/19 07:00 Magnesium 1.6 mg/dL (1.8-2.4) L 01/05/19 07:00 HOSPITAL COURSE: Date of Admission:01/02/19 Date of Discharge: 01/10/19 The patient was admitted to the Med-Surg Unit after elective repair of her peripheral arterial disease. Now, s/p Left femoral-posterior tibial bypass with insitu saphenous vein, Left femoral endarterectomy. The patient was monitored in the ICU with frequent Neurovascular checks on the day of surgery. Narcotic and non-narcotic pain management control was achieved with an oral and IV approach. The patient was transferred to the floor on POD2, ASA/Plavix were resumed and the patient ambulated with PT. The patients dressing was changed on POD4, wound was noted to be healing well with no evidence of infection. Bre-operative IV ABX were administered. DVT prophylaxis was achieved with SCDs and early ambulation. The patient continued to have palpable pulses throughout the admission. Rehab was recommend upon discharge, patient initially declined due to home issues. Patient agreeable after lengthy conversation regarding benefits of more intensive physical therapy. The discharge instructions and an oral pain management plan were reviewed with the patient. All questions answered. Above plan discussed with Dr. Luu and agreed. Minutes to complete discharge: 20
== END 2019-01-10 19:39 | DRG 253 ==
LOC: JSAMEDAYSX 05:10 → JICU 20:56 → J8W 01-04 20:16
PROVIDERS: ADMIT Surgery; ATTEND Surgery
PROC: 041S0JS Bypass Left Posterior Tibial Artery to Lower Extremity Vein with Synthetic Substitute, Open Approach (ICD-10-PCS; 2019-01-02)
PROC: 30233R1 Transfusion of Nonautologous Platelets into Peripheral Vein, Percutaneous Approach (ICD-10-PCS; 2019-01-02)
PROC: 04CL0ZZ Extirpation of Matter from Left Femoral Artery, Open Approach (ICD-10-PCS; principal; 2019-01-02 12:00)
DX: E11.51 Type 2 diabetes mellitus with diabetic peripheral angiopathy without gangrene (principal); D62 Acute posthemorrhagic anemia; I50.9 Heart failure, unspecified; I25.10 Atherosclerotic heart disease of native coronary artery without angina pectoris; I70.202 Unspecified atherosclerosis of native arteries of extremities, left leg; I73.9 Peripheral vascular disease, unspecified; I11.0 Hypertensive heart disease with heart failure; J44.9 Chronic obstructive pulmonary disease, unspecified; E83.42 Hypomagnesemia
CPT/HCPCS: 36415; 36430; 36511; 80048; 82962; 83735; 84100; 85025; 85027; 86850; 86900; 86901; 86922; 88304-TC; 94760; 97116-GP; 97162-GP; J0131; J1644; J7030; P9034; P9038

== ENCOUNTER 2020-06-19 00:02 | Inpatient (IN) | payer OTHER ==
[2020-06-19] MEDS ORDERED: LACTATED RINGERS SOLUTION 1000 ML INFUS.BAG IV ONE (00:40)
[2020-06-19 01:28] LABS: BASO % 0.4 % (0-2.0); HEMATOCRIT 39.1 % (32.4-45.2); HEMOGLOBIN 13.7 GM/dL (10.7-15.3); LYMPH % 8.3 % (8-40); MCH 35.3 pg (25.7-33.7); MCHC 34.9 g/dl (32.0-36.0); MEAN CELL VOLUME 101.1 fl (80-96); MONO % 4.6 % (3.8-10.2); NEUT % 85.7 % (42.8-82.8); PLATELET COUNT 121 K/MM3 (134-434); RBC 3.87 M/mm3 (3.60-5.2); RDW 13.5 % (11.6-15.6); WHITE BLOOD COUNT 5.6 K/mm3 (4.0-10.0)
[2020-06-19 01:46] LABS: POTASSIUM 3.4 mmol/L (3.5-5.1)
[2020-06-19 01:47] LABS: ALBUMIN 3.7 g/dl (3.4-5.0)
[2020-06-19 01:48] LABS: BLOOD UREA NITROGEN 12.5 mg/dL (7-18); CALCIUM 8.9 mg/dL (8.5-10.1); MAGNESIUM 1.3 mg/dL (1.8-2.4)
[2020-06-19 01:50] LABS: EPI CELLS 3 /uL (0-25.1); HYALINE CASTS 1 /uL (0-3.1); URINE APPEARANCE CLOUDY; URINE BACTERIA 68 /uL (0-1359); URINE BILIRUBIN NEGATIVE (NEGATIVE); URINE COLOR RED; URINE GLUCOSE (UA) 2+ (NEGATIVE); URINE KETONE 1+ (NEGATIVE); URINE LEUK ESTERASE TRACE (NEGATIVE); URINE NITRITE NEGATIVE (NEGATIVE); URINE PROTEIN 2+ (NEGATIVE); URINE RBC 13995 /uL (0-23.9); URINE UROBILINOGEN 0.2 mg/dL (0.2-1.0); URINE WBC 16 /uL (0-25.8)
[2020-06-19 01:52] LABS: CREATININE 0.9 mg/dL (0.55-1.3)
[2020-06-19 01:53] LABS: BILIRUBIN,TOTAL 0.7 mg/dL (0.2-1); TOT PROT 7.4 g/dl (6.4-8.2)
[2020-06-19 02:43] LABS: COCAINE, UR NEGATIVE ng/ml (CUTOFF=300); OPIATES, URI NEGATIVE ng/ml (CUTOFF=300)
[2020-06-19 02:44] LABS: PHENCYCLIDINE,URINE NEGATIVE ng/ml (CUTOFF=25)
[2020-06-19 02:52] LABS: METHADONE, UR NEGATIVE ng/ml (CUTOFF=300); URINE AMPHETAMINES NEGATIVE ng/ml (CUTOFF=500); URINE BARBITURATES NEGATIVE ng/ml (CUTOFF=200)
[2020-06-19 03:03] LABS: URINE BENZODIAZEPINES POSITIVE ng/ml (CUTOFF=200)
[2020-06-19] MEDS ORDERED: SODIUM CHLORIDE 1,000 ML IV SCH (03:30)
[2020-06-19] MEDS ORDERED: SODIUM CHLORIDE 0.9%/KCL 20 MEQ/1,000 ML INFUS.BAG IV SCH ×3 (03:30→12:51)
[2020-06-19] MEDS ORDERED: CEFTRIAXONE 1 GM in DEXTROSE 5%-WATER - 50 ML IVPB ONE (03:45)
[2020-06-19] MEDS ORDERED: CEFTRIAXONE 1 GM/50 ML BAG ONE (03:52)
[2020-06-19] MEDS ORDERED: POTASSIUM CHLORIDE 10 MEQ in SODIUM CHLORIDE 1,000 ML IVPB SCH (04:45)
[2020-06-19] MEDS ORDERED: DOCUSATE SODIUM 100 MG CAPSULE (FP) PO PRN (04:55)
[2020-06-19] MEDS ORDERED: MAGNESIUM SULF 50% (8.12 MEQ/2 ML-1 GM VIAL) IVPB ONE (05:00)
[2020-06-19] MEDS ORDERED: MAGNESIUM SULFATE IN WATER 2 GM/50 ML IVPB IVPB ONE (05:03)
[2020-06-19] MEDS: INSULIN SLIDING SCALE (NOVOLOG) 1 VIAL SQ SCH ×4 (06:49→21:50)
[2020-06-19] MEDS ORDERED: [UNRECOGNIZED DRUG - OTHER] PO SCH (10:00)
[2020-06-19] MEDS ORDERED: ATENOLOL PO SCH (10:00)
[2020-06-19] MEDS ORDERED: CHLORTHALIDONE PO SCH (10:00)
[2020-06-19] MEDS ORDERED: ATENOLOL 25 MG TABLET (FP) ONE (11:16)
[2020-06-19] MEDS ORDERED: ASPIRIN 81 MG CHEWABLE TABLETS ONE (11:16)
[2020-06-19] MEDS ORDERED: CLOPIDOGREL BISULFATE 75 MG TABLET (FP) ONE (11:16)
[2020-06-19] MEDS: ATENOLOL 50 MG TABLET (FP) PO SCH (11:22)
[2020-06-19] MEDS: CLOPIDOGREL BISULFATE 75 MG TABLET (FP) PO SCH (11:22)
[2020-06-19] MEDS: ASPIRIN 81 MG CHEWABLE TABLETS PO SCH (11:22)
[2020-06-19] MEDS ORDERED: dilTIAZem HCL 50 MG/10 ML - 10 ML VIAL IVPUSH ONE (11:53)
[2020-06-19] MEDS ORDERED: dilTIAZem HCL 125 MG/25 ML - 25 ML VIAL ONE (11:57)
[2020-06-19] MEDS ORDERED: ENALAPRIL MALEATE 5 MG TABLET ONE (12:34)
[2020-06-19] MEDS: ENALAPRIL MALEATE 5 MG TABLET PO SCH ×2 (12:43→21:54)
[2020-06-19] MEDS ORDERED: ACETAMINOPHEN 325 MG TABLET (FP) ONE (13:51)
[2020-06-19] MEDS: ACETAMINOPHEN 325 MG TABLET (FP) PO PRN ×2 (13:56→22:16)
[2020-06-19 14:35] LABS: POTASSIUM 3.5 mmol/L (3.5-5.1)
[2020-06-19 14:38] LABS: ALBUMIN 3.8 g/dl (3.4-5.0); BLOOD UREA NITROGEN 12.2 mg/dL (7-18)
[2020-06-19 14:43] LABS: TOT PROT 7.8 g/dl (6.4-8.2)
[2020-06-19] MEDS ORDERED: ESCITALOPRAM OXALATE 10 MG TABLET ONE (15:14)
[2020-06-19] MEDS ORDERED: dilTIAZem HCL 30 MG TABLET ONE (15:14)
[2020-06-19] MEDS: dilTIAZem HCL 30 MG TABLET PO SCH ×2 (15:48→21:54)
[2020-06-19] MEDS: ESCITALOPRAM OXALATE 10 MG TABLET PO SCH (15:48)
[2020-06-19 18:22] VITALS: BMI 22.7
[2020-06-20] MEDS: dilTIAZem HCL 30 MG TABLET PO SCH ×4 (06:34→21:35)
[2020-06-20] MEDS: INSULIN SLIDING SCALE (NOVOLOG) 1 VIAL SQ SCH ×4 (06:34→21:36)
[2020-06-20 07:31] LABS: HEMATOCRIT 36.5 % (32.4-45.2); HEMOGLOBIN 12.8 GM/dL (10.7-15.3); MCH 35.6 pg (25.7-33.7); MCHC 35.2 g/dl (32.0-36.0); MEAN CELL VOLUME 101.1 fl (80-96); MEAN PLT VOLUME 7.3 fl (7.5-11.1); PLATELET COUNT 105 K/MM3 (134-434); RBC 3.61 M/mm3 (3.60-5.2); RDW 13.8 % (11.6-15.6); WHITE BLOOD COUNT 5.4 K/mm3 (4.0-10.0)
[2020-06-20 07:51] LABS: POTASSIUM 3.3 mmol/L (3.5-5.1)
[2020-06-20 08:08] LABS: ALBUMIN 3.3 g/dl (3.4-5.0); CALCIUM 8.5 mg/dL (8.5-10.1)
[2020-06-20 08:09] LABS: BLOOD UREA NITROGEN 13.9 mg/dL (7-18)
[2020-06-20 08:12] LABS: CREATININE 0.7 mg/dL (0.55-1.3)
[2020-06-20] MEDS: ACETAMINOPHEN 325 MG TABLET (FP) PO PRN ×2 (08:12→23:00)
[2020-06-20 08:13] LABS: BILIRUBIN,TOTAL 1.2 mg/dL (0.2-1); TOT PROT 6.5 g/dl (6.4-8.2)
[2020-06-20] MEDS ORDERED: POTASSIUM CHLORIDE TABS 20 MEQ TABLET.ER (FP) PO ONE (08:16)
[2020-06-20] MEDS ORDERED: ENOXAPARIN NA (PORCINE) 60 MG/0.6 ML DISP.SYRIN SQ SCH (10:00)
[2020-06-20] MEDS ORDERED: dilTIAZem HCL 25 MG/5 ML - 5 ML VIAL IVPUSH PRN (10:33)
[2020-06-20] MEDS: ENALAPRIL MALEATE 5 MG TABLET PO SCH ×2 (10:42→22:04)
[2020-06-20] MEDS: PANTOPRAZOLE 20 MG TABLET PO SCH (10:42)
[2020-06-20] MEDS: CLOPIDOGREL BISULFATE 75 MG TABLET (FP) PO SCH (10:42)
[2020-06-20] MEDS: ATENOLOL 50 MG TABLET (FP) PO SCH (10:42)
[2020-06-20] MEDS: ASPIRIN 81 MG CHEWABLE TABLETS PO SCH (10:43)
[2020-06-20] MEDS: ESCITALOPRAM OXALATE 10 MG TABLET PO SCH (10:43)
[2020-06-20 11:04] LABS: MAGNESIUM 1.8 mg/dL (1.8-2.4)
[2020-06-20] MEDS ORDERED: INSULIN (NOVOLOG) ASPART 100 UNITS/ML 10ML VIAL SQ ONE (12:15)
[2020-06-20] MEDS: APIXABAN 5 MG TABLET PO SCH (21:35)
[2020-06-20] MEDS: THIAMINE HCL 200 MG/2 ML VIAL IVPB SCH (22:06)
[2020-06-21] MEDS: ACETAMINOPHEN 325 MG TABLET (FP) PO PRN ×2 (04:47→21:43)
[2020-06-21] MEDS ORDERED: dilTIAZem HCL 30 MG TABLET PO SCH (05:08)
[2020-06-21] MEDS: THIAMINE HCL 200 MG/2 ML VIAL IVPB SCH ×3 (05:36→21:26)
[2020-06-21] MEDS: INSULIN SLIDING SCALE (NOVOLOG) 1 VIAL SQ SCH ×4 (06:26→21:31)
[2020-06-21 08:24] LABS: EOS % 5.2 % (0-4.5); HEMATOCRIT 34.5 % (32.4-45.2); HEMOGLOBIN 12.2 GM/dL (10.7-15.3); LYMPH % 20.9 % (8-40); MCH 35.7 pg (25.7-33.7); MCHC 35.5 g/dl (32.0-36.0); MEAN CELL VOLUME 100.7 fl (80-96); MEAN PLT VOLUME 7.2 fl (7.5-11.1); MONO % 11.7 % (3.8-10.2); NEUT % 61.2 % (42.8-82.8); PLATELET COUNT 107 K/MM3 (134-434); RBC 3.43 M/mm3 (3.60-5.2); RDW 13.7 % (11.6-15.6); WHITE BLOOD COUNT 5.3 K/mm3 (4.0-10.0)
[2020-06-21 08:29] LABS: POTASSIUM 3.8 mmol/L (3.5-5.1)
[2020-06-21 08:35] LABS: CALCIUM 8.4 mg/dL (8.5-10.1)
[2020-06-21 08:36] LABS: ALBUMIN 3.2 g/dl (3.4-5.0); BLOOD UREA NITROGEN 17.5 mg/dL (7-18)
[2020-06-21 08:39] LABS: CREATININE 0.8 mg/dL (0.55-1.3)
[2020-06-21 08:40] LABS: BILIRUBIN,TOTAL 1.3 mg/dL (0.2-1); TOT PROT 6.1 g/dl (6.4-8.2)
[2020-06-21] MEDS: dilTIAZem HCL 30 MG TABLET PO SCH ×2 (09:22→12:56)
[2020-06-21] MEDS: INSULIN (LEVEMIR) 100 UNITS/ML UNITS SQ SCH ×3 (10:23→21:42)
[2020-06-21] MEDS: APIXABAN 5 MG TABLET PO SCH ×2 (10:23→21:22)
[2020-06-21] MEDS: PANTOPRAZOLE 20 MG TABLET PO SCH (10:24)
[2020-06-21] MEDS: ESCITALOPRAM OXALATE 10 MG TABLET PO SCH (10:24)
[2020-06-21] MEDS: ATENOLOL 50 MG TABLET (FP) PO SCH (10:24)
[2020-06-21] MEDS: ENALAPRIL MALEATE 5 MG TABLET PO SCH ×2 (10:24→21:22)
[2020-06-21] MEDS ORDERED: INSULIN (NOVOLOG) ASPART 100 UNITS/ML 10ML VIAL ONE (13:05)
[2020-06-21] MEDS ORDERED: INSULIN (NOVOLOG) ASPART 100 UNITS/ML 10ML VIAL SQ ONE (18:07)
[2020-06-22] MEDS: THIAMINE HCL 200 MG/2 ML VIAL IVPB SCH ×2 (05:55→13:38)
[2020-06-22] MEDS: INSULIN SLIDING SCALE (NOVOLOG) 1 VIAL SQ SCH ×3 (06:40→17:04)
[2020-06-22] MEDS ORDERED: INSULIN (LEVEMIR) 100 UNITS/ML UNITS SQ SCH ×2 (07:00→22:00)
[2020-06-22 07:41] LABS: ALBUMIN 3.4 g/dl (3.4-5.0); BLOOD UREA NITROGEN 17.6 mg/dL (7-18); CALCIUM 8.7 mg/dL (8.5-10.1)
[2020-06-22 07:42] LABS: CREATININE 0.9 mg/dL (0.55-1.3)
[2020-06-22 07:43] LABS: TOT PROT 6.7 g/dl (6.4-8.2)
[2020-06-22] MEDS: APIXABAN 5 MG TABLET PO SCH (09:48)
[2020-06-22] MEDS: PANTOPRAZOLE 20 MG TABLET PO SCH (09:48)
[2020-06-22] MEDS: ESCITALOPRAM OXALATE 10 MG TABLET PO SCH (09:48)
[2020-06-22] MEDS: ENALAPRIL MALEATE 5 MG TABLET PO SCH (09:49)
[2020-06-22] MEDS: ATENOLOL 50 MG TABLET (FP) PO SCH (09:49)
[2020-06-22 15:13] VITALS: BP 144/69; PULSE 85; TEMP 98.2
== END 2020-06-22 18:19 | disposition home or self-care (01) | DRG 641 ==
LOC: JER 00:02 → JERBED 02:11 → J4W 17:28
PROVIDERS: ADMIT Hospitalist; ATTEND Family Medicine
DX: E87.1 Hypo-osmolality and hyponatremia (principal); M62.82 Rhabdomyolysis; I50.32 Chronic diastolic (congestive) heart failure; G95.9 Disease of spinal cord, unspecified; F10.229 Alcohol dependence with intoxication, unspecified; E87.2 Acidosis; E11.65 Type 2 diabetes mellitus with hyperglycemia; J44.9 Chronic obstructive pulmonary disease, unspecified; I25.10 Atherosclerotic heart disease of native coronary artery without angina pectoris; I73.9 Peripheral vascular disease, unspecified; R55 Syncope and collapse; E83.42 Hypomagnesemia; E87.6 Hypokalemia; I48.0 Paroxysmal atrial fibrillation; K76.0 Fatty (change of) liver, not elsewhere classified; E11.51 Type 2 diabetes mellitus with diabetic peripheral angiopathy without gangrene; W19.XXXA Unspecified fall, initial encounter; M47.892 Other spondylosis, cervical region; R60.9 Edema, unspecified; M25.80 Other specified joint disorders, unspecified joint; R31.0 Gross hematuria; I11.0 Hypertensive heart disease with heart failure
CPT/HCPCS: 36415; 70450-TC; 70486-TC; 71045-TC-FY; 72125-TC; 72141-TC; 74177-TC; 80053; 80061; 80307; 81003; 82550; 82553; 82947; 82962; 83036; 83605; 83690; 83721; 83735; 84443; 84484; 85025; 85027; 87086; 93005; 93010; 93225; 93226; 93306-TC; 93880-TC; 97116-GP; 97162-GP; 99285-25; C9803; U0003

== ENCOUNTER 2024-03-11 17:01 | Inpatient (IN) | payer OTHER ==
[2024-03-11 18:27] LABS: VENOUS BASE EXCESS -5.4 mmol/L (-2-2); VENOUS O2 SATURATION 28.1 % (70-80); VENOUS PCO2 39.4 mmHg (38-52); VENOUS PH 7.326 (7.310-7.410)
[2024-03-11 18:28] LABS: HEMATOCRIT 41.6 % (32.4-45.2); MCH 33.9 pg (25.7-33.7); MCHC 33.6 g/dl (32.0-36.0); MEAN CELL VOLUME 100.9 fl (80-96); MEAN PLT VOLUME 8.2 fl (7.5-11.1); PLATELET COUNT 107 10^3/uL (134-434); RBC 4.12 M/mm3 (3.60-5.2); RDW 15.3 % (11.6-15.6); WHITE BLOOD COUNT 10.5 K/mm3 (4.0-10.0)
[2024-03-11 18:35] LABS: INR 2.31 (0.83-1.09); PROTHROMBIN TIME (PATIENT) 25.9 SEC (9.7-13.0)
[2024-03-11 18:38] LABS: ACTIVATED PTT 32.7 SECONDS (25.2-36.5)
[2024-03-11 18:58] LABS: LACTIC ACID 11.6 mmol/L (0.4-2.0)
[2024-03-11 18:59] LABS: EPI CELLS 2 /uL (0-25.1); HYALINE CASTS 1 /uL (0-3.1); PH,URINE 5.5 (5.0-8.0); URINE APPEARANCE CLEAR; URINE BACTERIA 3 /uL (0-1359); URINE BILIRUBIN NEGATIVE (NEGATIVE); URINE COLOR YELLOW; URINE GLUCOSE (UA) 3+ (NEGATIVE); URINE KETONE 3+ (NEGATIVE); URINE LEUK ESTERASE NEGATIVE (NEGATIVE); URINE NITRITE NEGATIVE (NEGATIVE); URINE PROTEIN 1+ (NEGATIVE); URINE RBC 7 /uL (0-23.9); URINE UROBILINOGEN 0.2 mg/dL (0.2-1.0); URINE WBC 4 /uL (0-25.8)
[2024-03-11 19:00] LABS: CHLORIDE 90 mmol/L (98-107); POTASSIUM 4.1 mmol/L (3.5-5.1); SODIUM 137 mmol/L (136-145)
[2024-03-11 19:02] LABS: ALBUMIN 3.5 g/dl (3.4-5.0)
[2024-03-11 19:03] LABS: ANION GAP 24 mmol/L (4-13); BLOOD UREA NITROGEN 39.7 mg/dL (7-18); CO2 23 mmol/L (21-32)
[2024-03-11] MEDS: SODIUM CHLORIDE 0.9% 500 ML INFUS.BAG IV ONE ×2 (19:03→22:16)
[2024-03-11 19:04] LABS: ANISOCYTOSIS 2+; MACROCYTOSIS 2+; OVALOCYTE 1+
[2024-03-11 19:05] LABS: GLUCOSE,RANDOM 412 mg/dL (74-106)
[2024-03-11 19:06] LABS: SGOT/AST 107 U/L (15-37); SGPT/ALT 69 U/L (13-61)
[2024-03-11 19:07] LABS: BILIRUBIN,TOTAL 2.2 mg/dL (0.2-1); TOT PROT 7.2 g/dl (6.4-8.2)
[2024-03-11 19:08] LABS: ALK PHOS 70 U/L (45-117)
[2024-03-11] MEDS ORDERED: morphine SULFATE 4 MG/ML VIAL ONE (19:35)
[2024-03-11] MEDS: morphine CARPU-JECT 4 MG/1 ML DISP.SYRIN IVPUSH ONE (19:47)
[2024-03-11 21:26] VITALS: RESP 18
[2024-03-11 21:44] LABS: ALBUMIN 3.1 g/dl (3.4-5.0); BILIRUBIN,TOTAL 1.8 mg/dL (0.2-1); BLOOD UREA NITROGEN 36.8 mg/dL (7-18); CALCIUM 8.3 mg/dL (8.5-10.1); CREATININE 1.7 mg/dL (0.55-1.3); TOT PROT 6.4 g/dl (6.4-8.2)
[2024-03-11 22:05] LABS: LACTIC ACID 9.4 mmol/L (0.4-2.0)
[2024-03-11] MEDS ORDERED: LIDOCAINE HCL 2% JELLY 11 ML TP ONE (23:15)
[2024-03-11] MEDS ORDERED: ACETAMINOPHEN INJECTION 100 ML ONE (23:15)
[2024-03-12] MEDS: METOPROLOL TARTRATE 5 MG/5 ML VIAL IVPUSH PRN (00:16)
[2024-03-12] MEDS: ACETAMINOPHEN 1000 MG/100 ML BAG IVPB ONE (00:16)
[2024-03-12] MEDS: LACTATED RINGERS SOLUTION 1,000 ML/1,000 ML INFUS.BAG IV SCH ×2 (00:16→09:22)
[2024-03-12] MEDS ORDERED: dilTIAZem HCL 125 MG/25 ML - 25 ML VIAL ONE (01:58)
[2024-03-12] MEDS: dilTIAZem HCL 50 MG/10 ML - 10 ML VIAL IVPUSH PRN (02:22)
[2024-03-12 02:46] LABS: LACTIC ACID 11.6 mmol/L (0.4-2.0)
[2024-03-12] MEDS: KCL 10 MEQ IVPB 10 MEQ/100 ML INFUS.BAG IVPB SCH (04:25)
[2024-03-12] MEDS: INSULIN REGULAR HUMAN 100 UNITS/ML *VIAL SQ ONE (04:44)
[2024-03-12 05:47] VITALS: BMI 24.6
[2024-03-12] MEDS: INSULIN ASPART SLIDING SCALE (NOVOLOG) 1 VIAL SQ SCH (06:05)
[2024-03-12] MEDS: dilTIAZem HCL 50 MG/10 ML - 10 ML VIAL IVPUSH ONE (07:02)
[2024-03-12 07:41] LABS: HEMATOCRIT 40.7 % (32.4-45.2); HEMOGLOBIN 13.6 GM/dL (10.7-15.3); MCH 34.1 pg (25.7-33.7); MCHC 33.3 g/dl (32.0-36.0); MEAN CELL VOLUME 102.4 fl (80-96); MEAN PLT VOLUME 8.6 fl (7.5-11.1); PLATELET COUNT 87 10^3/uL (134-434); RBC 3.98 M/mm3 (3.60-5.2); RDW 15.2 % (11.6-15.6)
[2024-03-12 08:06] LABS: CHLORIDE 98 mmol/L (98-107); POTASSIUM 3.5 mmol/L (3.5-5.1); SODIUM 143 mmol/L (136-145)
[2024-03-12] MEDS ORDERED: DEXTROSE 50%-WATER 25 GM/50 ML DISP.SYRIN IVPUSH PRN (08:13)
[2024-03-12] MEDS ORDERED: INSULIN REGULAR HUMAN 100 UNITS/ML *VIAL* (FOR IVP) IVPUSH ONE (08:13)
[2024-03-12 08:15] LABS: BLOOD UREA NITROGEN 48.8 mg/dL (7-18); CALCIUM 7.9 mg/dL (8.5-10.1)
[2024-03-12] MEDS ORDERED: INSULIN REGULAR 100 UNITS in SODIUM CHLORIDE 99 ML IVPB SCH (08:15)
[2024-03-12 08:16] LABS: ANION GAP 22 mmol/L (4-13); CO2 23 mmol/L (21-32); GLUCOSE,RANDOM 248 mg/dL (74-106)
[2024-03-12] MEDS ORDERED: dilTIAZem HCL 50 MG/10 ML - 10 ML VIAL IVPUSH PRN (08:17)
[2024-03-12 08:19] LABS: CHOLESTEROL 83 mg/dL (50-200); CREATININE 2.4 mg/dL (0.55-1.3); MAGNESIUM 0.8 mg/dL (1.8-2.4)
[2024-03-12 08:20] LABS: LDL CHOLESTEROL (ONLY SJRH) 40 mg/dL (5-100)
[2024-03-12 08:22] LABS: HDL CHOLESTEROL 29 mg/dL (40-60)
[2024-03-12] MEDS: METOPROLOL TARTRATE 5 MG/5 ML VIAL IVPUSH ONE (08:24)
[2024-03-12 08:52] LABS: ARTERIAL BLD GAS O2 SATURATION 98.6 % (95-98); ARTERIAL BLOOD GAS BASE EXCESS -1.8 mmol/L (-2-2); ARTERIAL BLOOD GAS pH 7.365 (7.350-7.450)
[2024-03-12 09:01] LABS: ALLENS TEST POSITIVE
[2024-03-12] MEDS: MAGNESIUM SULFATE IN WATER 2 GM/50 ML IVPB IVPB ONE (09:22)
[2024-03-12] MEDS: ACETAMINOPHEN 1000 MG/100 ML BAG IVPB PRN (09:22)
[2024-03-12 09:47] VITALS: BP 129/85; PULSE 95; TEMP 100
[2024-03-12] MEDS ORDERED: MAGNESIUM SULFATE IN WATER 2 GM/50 ML IVPB IVPB ONE (10:00)
[2024-03-12] MEDS ORDERED: MUPIROCIN 2% TOPICAL OINTMENT FOR DECOLONIZATION NS SCH (10:00)
[2024-03-12] MEDS ORDERED: PANTOPRAZOLE SODIUM 40 MG VIAL IVPUSH SCH (10:00)
[2024-03-12] MEDS ORDERED: CHLORHEXIDINE GLUCONATE 4% CLEANSER FOR DECOLONIZATION TP SCH (22:00)
== END 2024-03-12 12:29 | disposition expired | DRG 388 ==
LOC: JER 17:01 → JERBED 22:07 → J4W 03-12 04:15 → JICU 03-12 08:31
PROVIDERS: ADMIT Internal Medicine; ATTEND Family Medicine
DX: K56.609 Unspecified intestinal obstruction, unspecified as to partial versus complete obstruction (principal); J96.01 Acute respiratory failure with hypoxia; E87.20 Acidosis, unspecified; I50.32 Chronic diastolic (congestive) heart failure; K86.2 Cyst of pancreas; N17.9 Acute kidney failure, unspecified; M50.00 Cervical disc disorder with myelopathy, unspecified cervical region; I11.0 Hypertensive heart disease with heart failure; E11.51 Type 2 diabetes mellitus with diabetic peripheral angiopathy without gangrene; J44.9 Chronic obstructive pulmonary disease, unspecified; E11.65 Type 2 diabetes mellitus with hyperglycemia; E11.42 Type 2 diabetes mellitus with diabetic polyneuropathy; D69.6 Thrombocytopenia, unspecified; I25.10 Atherosclerotic heart disease of native coronary artery without angina pectoris; I48.91 Unspecified atrial fibrillation; E78.5 Hyperlipidemia, unspecified; I25.119 Atherosclerotic heart disease of native coronary artery with unspecified angina pectoris; R57.8 Other shock
CPT/HCPCS: 0241U-QW; 36415; 36600; 71045-TC-FY; 74174-TC; 80048; 80053; 80061; 81003; 82010; 82803; 82962; 83605; 83735; 84100; 84484; 85025; 85027; 85610; 85730; 86850; 86900; 86901; 87086; 93005; 93010; 99291; J0131